=== PATIENT | female | born 1970 | race African-American/Black ===

== ENCOUNTER 2017-05-01 12:23 | Emergency (ER) | payer MEDICARE ==
--- OUTSIDE RECORDS SUMMARY | 2017-05-01 12:26 | XMS | Clinical Summary ---
:1970 Author Organization [facility] Address [address] [place] [address] Phone Care Team Providers Name Role Phone , Primary Care Provider Unavailable Allergies Not on File Current Medications Not on file Active Problems Not on file Social History Tobacco Use Types Packs/Day Years Used Date Never Assessed Sex Assigned at Date Recorded Not on file Last Filed Vital Signs Not on file Plan of Treatment Not on file Results Not on filefrom Last 3 Months
[2017-05-01 13:32] LABS: Bilirubin Negative (Negative); Blood, Urine Negative (Negative); Glucose, Urine (Dipstick) Negative (Negative); Ketone, Urine Negative (Negative); Nitrite Negative (Negative); Protein, Urine (Dipstick) Negative (Neg-Trace); Urobilinogen 0.2 mg/dL (0.2-1.0)
[2017-05-01 13:48] LABS: Amphetamine Not Detected (NotDetected); Methadone Not Detected (NotDetected); Methamphetamine Not Detected (NotDetected)
[2017-05-01] MEDS ORDERED: Lorazepam 1 MG TAB ONE (14:03)
[2017-05-01 14:22] LABS: #Basophils 0.1 thou/uL (0.0-0.2); #Eosinphils 0.2 thou/uL (0.0-0.7); #Lymphocytes 3.8 thou/uL (1.20-3.40); #Monocytes 0.9 thou/uL (0.11-0.59); #Neutrophils 5.6 thou/uL (1.40-6.50); %Basophils 1.1 % (0.0-1.0); %Eosinophils 1.6 % (0.0-10.0); %Lymphocytes 35.9 % (21.0-51.0); %Monocytes 8.1 % (0.0-10.0); Hematocrit 39.5 % (36.0-47.0); White Blood Cell (WBC) Count 10.5 thou/uL (4.8-10.8)
[2017-05-01 14:40] LABS: ALT (SGPT) 11 U/L (8-55); AST (SGOT) 14 U/L (5-34); Acetaminophen Less than 6.0 mcg/mL (10.0-30.0); Alkaline Phosphatase 92 U/L (40-150); Anion Gap 15 mmol/L (10-20); BUN (Urea Nitrogen) 10 mg/dL (7.0-18.7); Bilirubin, Total 0.3 mg/dL (0.2-1.2); CK (CPK) 113 U/L (29-168); Calc. Creatinine Clearance 0 mL/min (70-130); Calcium 9.4 mg/dL (7.8-10.44); Carbon Dioxide 23 mmol/L (22-29); Chloride 105 mmol/L (98-107); Estimated GFR-MDRD 73; Protein, Total 7.9 g/dL (6.0-8.3); Salicylate Less than 8.0 mg/dL (15.0-30.0)
[2017-05-01] MEDS ORDERED: traZODone HCl 150 MG TAB PO SCH (21:00)
== END 2017-05-02 08:40 ==
LOC: ERS 12:23
DX: R45.851 Suicidal ideations (principal); I10 Essential (primary) hypertension; J45.909 Unspecified asthma, uncomplicated; F41.9 Anxiety disorder, unspecified; F32.9 Major depressive disorder, single episode, unspecified; F20.9 Schizophrenia, unspecified; F17.210 Nicotine dependence, cigarettes, uncomplicated; Z79.891 Long term (current) use of opiate analgesic; Z79.899 Other long term (current) drug therapy
CPT/HCPCS: 36415; 80053; 80306; 80307; 81003; 81025; 82550; 84443; 85025; 93005

== ENCOUNTER 2017-09-28 03:49 | Emergency (ER) | payer MEDICARE, MEDICAID ==
[2017-09-28] MEDS ORDERED: Promethazine HCl 25 MG/ML VIAL ONE (04:55)
[2017-09-28 05:00] LABS: Bilirubin Negative (Negative); Blood, Urine Negative (Negative); Clarity CLOUDY (Clear); Glucose, Urine (Dipstick) Negative (Negative); Leukocyte Negative (Negative); Nitrite Negative (Negative); Protein, Urine (Dipstick) Negative (Neg-Trace); Specific Gravity, Urine 1.018 (1.002-1.036); Urobilinogen 0.2 mg/dL (0.2-1.0); pH, Urine 7.5 (5.0-9.0)
[2017-09-28] MEDS ORDERED: cloNIDine 0.1 MG TAB ONE ×2 (05:41→06:40)
[2017-09-28 05:49] LABS: Hemoglobin 12.4 g/dL (12.0-16.0); Mean Corpuscular HGB CONC 32.2 g/dL (32.0-36.0); Mean Corpuscular Hemoglobin 26.7 pg (27.0-31.0); Mean Platelet Volume 8.2 fL (7.4-10.4); Platelet Count 493 thou/uL (130-400); RBC Distribution Width 21.8 % (11.5-14.5); Red Blood Cell (RBC) Count 4.63 mill/uL (4.20-5.40); White Blood Cell (WBC) Count 13.7 thou/uL (4.8-10.8)
[2017-09-28 06:04] LABS: ALT (SGPT) 9 U/L (8-55); AST (SGOT) 13 U/L (5-34); Albumin 4.4 g/dL (3.5-5.0); Alkaline Phosphatase 85 U/L (40-150); Anion Gap 12 mmol/L (10-20); BUN (Urea Nitrogen) 10 mg/dL (7.0-18.7); Bilirubin, Total 0.3 mg/dL (0.2-1.2); CK (CPK) 184 U/L (29-168); Calc. Creatinine Clearance 0 mL/min (70-130); Calcium 9.6 mg/dL (7.8-10.44); Carbon Dioxide 24 mmol/L (22-29); Chloride 108 mmol/L (98-107); Estimated GFR-MDRD Greater than 90; Globulin 3.9 g/dL (2.4-3.5); Glucose 117 mg/dL (70-105); Lipase 12 U/L (8-78); Potassium 3.8 mmol/L (3.5-5.1); Protein, Total 8.3 g/dL (6.0-8.3); Sodium 140 mmol/L (136-145)
[2017-09-28 06:12] LABS: #Basophils 0.1 thou/uL (0.0-0.2); #Eosinphils 0.1 thou/uL (0.0-0.7); #Lymphocytes 3.1 thou/uL (1.20-3.40); #Monocytes 0.9 thou/uL (0.11-0.59); #Neutrophils 9.5 thou/uL (1.40-6.50); %Basophils 1.1 % (0.0-1.0); %Eosinophils 0.5 % (0.0-10.0); %Lymphocytes 22.6 % (21.0-51.0); %Monocytes 6.4 % (0.0-10.0); %Neutrophils 69.4 % (42.0-75.0); Anisocytosis SLIGHT = 6-15 cells (100X) (0-5/hpf); MDiff Complete? YES; Microcytosis SLIGHT = 6-15 cells (100X) (0-5/hpf); PLT Morphology Comment Appears Increased
[2017-09-28 06:23] LABS: Pregnancy Test - Urine (BHCG) Negative (Negative); Pregu Control Background? CLEAR/WHITE (CLR/WHITE); Pregu Control Bar Appear? YES (CONTROL BAR); Specific Gravity 1.018 (1.002-1.036)
[2017-09-28] MEDS ORDERED: Pantoprazole 40 MG VIAL ONE (06:40)
[2017-09-28] MEDS ORDERED: Amlodipine 5 MG TAB ONE (06:40)
[2017-09-28] MEDS ORDERED: ALPRAZolam 0.25 MG TAB ONE (06:54)
[2017-09-28] MEDS ORDERED: DULoxetine 60 MG CAP PO SCH (07:00)
[2017-09-28] MEDS ORDERED: QUEtiapine Fumarate ER 50 MG TAB PO SCH (09:00)
== END 2017-09-28 08:15 | disposition home or self-care (01) ==
LOC: ERS 03:49
DX: I10 Essential (primary) hypertension (principal); R11.2 Nausea with vomiting, unspecified; R10.13 Epigastric pain; F29 Unspecified psychosis not due to a substance or known physiological condition; J45.909 Unspecified asthma, uncomplicated; F41.9 Anxiety disorder, unspecified; F32.9 Major depressive disorder, single episode, unspecified; F20.9 Schizophrenia, unspecified; F43.10 Post-traumatic stress disorder, unspecified; F17.210 Nicotine dependence, cigarettes, uncomplicated; Z79.891 Long term (current) use of opiate analgesic; Z79.899 Other long term (current) drug therapy
CPT/HCPCS: 36415; 80053; 81003; 81025; 82550; 83605; 83690; 85025; 96365; 96375; C9113; J2550

== ENCOUNTER 2017-09-30 11:44 | Emergency (ER) | payer MEDICARE, MEDICAID ==
[2017-09-30 12:11] LABS: #Basophils 0.1 thou/uL (0.0-0.2); #Eosinphils 0.2 thou/uL (0.0-0.7); #Lymphocytes 3.3 thou/uL (1.20-3.40); #Monocytes 0.7 thou/uL (0.11-0.59); #Neutrophils 6.5 thou/uL (1.40-6.50); %Basophils 0.7 % (0.0-1.0); %Eosinophils 1.7 % (0.0-10.0); %Lymphocytes 30.5 % (21.0-51.0); %Monocytes 6.3 % (0.0-10.0); %Neutrophils 60.8 % (42.0-75.0); Hemoglobin 12.9 g/dL (12.0-16.0); Mean Corpuscular HGB CONC 32.9 g/dL (32.0-36.0); Mean Corpuscular Hemoglobin 27.3 pg (27.0-31.0); Mean Corpuscular Volume 82.9 fl (81.0-99.0); Platelet Count 498 thou/uL (130-400); RBC Distribution Width 20.9 % (11.5-14.5); Red Blood Cell (RBC) Count 4.72 mill/uL (4.20-5.40); White Blood Cell (WBC) Count 10.7 thou/uL (4.8-10.8)
[2017-09-30 12:28] LABS: INR-International Normal Ratio 0.9; PTT 30.1 SEC (22.9-36.1); Prothrombin Time 12.5 SEC (12.0-14.7)
--- NOTE | 2017-09-30 12:37 | RAD ---
PORTABLE CHEST: HISTORY: Mental status change. FINDINGS: The lungs are clear. The heart and mediastinum are unremarkable. IMPRESSION: No acute finding. POS: [facility]
[2017-09-30 12:38] LABS: CKMB 1.2 ng/mL (0-6.6); Troponin I 0.012 ng/mL (< 0.028)
--- NOTE | 2017-09-30 12:41 | CT ---
CT BRAIN PERFORMED WITHOUT CONTRAST ENHANCEMENT: HISTORY: Right-sided facial numbness and right-sided weakness. COMPARISON: 04/23/2016 FINDINGS: The ventricular and cisternal system is within normal limits. There are no signs of intracerebral he morrhage or extraaxial fluid collection. The mastoid air cells and visualized sinuses are clear. IMPRESSION: No acute intracranial abnormalities. POS: [facility]
[2017-09-30 13:11] LABS: Bilirubin Negative (Negative); Blood, Urine Negative (Negative); Clarity CLEAR (Clear); Glucose, Urine (Dipstick) Negative (Negative); Leukocyte Trace (Negative); Nitrite Negative (Negative); Protein, Urine (Dipstick) Negative (Neg-Trace); Specific Gravity, Urine 1.013 (1.002-1.036)
[2017-09-30 13:14] LABS: Bacteria/HPF None Seen HPF (None Seen); Hyaline Casts/LPF 0-3 HYALINE CAST LPF (0-3 Hyaline); Pathc Cast-AUWi Flag 0.81 (0-2.49); RBC/HPF None Seen HPF (0-3); WBC/HPF 0-3 HPF (0-3)
[2017-09-30 14:05] LABS: ALT (SGPT) 23 U/L (8-55); AST (SGOT) 18 U/L (5-34); Albumin 4.1 g/dL (3.5-5.0); Alkaline Phosphatase 90 U/L (40-150); Anion Gap 13 mmol/L (10-20); BUN (Urea Nitrogen) 11 mg/dL (7.0-18.7); Bilirubin, Total 0.2 mg/dL (0.2-1.2); CK (CPK) 191 U/L (29-168); Calc. Creatinine Clearance 0 mL/min (70-130); Calcium 9.2 mg/dL (7.8-10.44); Carbon Dioxide 22 mmol/L (22-29); Chloride 104 mmol/L (98-107); Estimated GFR-MDRD 87; Globulin 3.7 g/dL (2.4-3.5); Glucose 145 mg/dL (70-105); Potassium 3.7 mmol/L (3.5-5.1); Protein, Total 7.8 g/dL (6.0-8.3); Sodium 135 mmol/L (136-145)
[2017-09-30] MEDS ORDERED: cloNIDine 0.1 MG TAB ONE (14:18)
--- NOTE | 2017-10-05 15:33 | EKG ---
Test Reason : Blood Pressure : / mmHG Vent. Rate : 091 BPM Atrial Rate : 091 BPM P-R Int : 140 ms QRS Dur : 074 ms QT Int : 390 ms P-R-T Axes : 064 -10 022 degrees QTc Int : 479 ms Normal sinus rhythm Possible Left atrial enlargement Left ventricular hypertrophy Abnormal ECG Confirmed by LUI MEZA ([id number]), editor farm journal ESHA FAULKNER ([id number]) on 10/05/2017 3:32:51 PM Referred By: Confirmed By:LUI MEZA
== END 2017-09-30 14:25 | disposition home or self-care (01) ==
LOC: ERS 11:44
DX: I10 Essential (primary) hypertension (principal); R20.0 Anesthesia of skin; J45.909 Unspecified asthma, uncomplicated; F41.9 Anxiety disorder, unspecified; F43.10 Post-traumatic stress disorder, unspecified; F20.9 Schizophrenia, unspecified; F17.210 Nicotine dependence, cigarettes, uncomplicated; Z79.891 Long term (current) use of opiate analgesic; Z79.899 Other long term (current) drug therapy
CPT/HCPCS: 36415; 51701; 70450; 71045; 80053; 81003; 81015; 82550; 82553; 84484; 85025; 85610; 85730; 93005; 99406; A4353

== ENCOUNTER 2017-12-24 03:53 | Inpatient (IN) | payer MEDICARE, MEDICAID ==
[2017-12-24 04:30] LABS: #Basophils 0.1 thou/uL (0.0-0.2); #Eosinphils 0.3 thou/uL (0.0-0.7); #Lymphocytes 4.5 thou/uL (1.20-3.40); #Monocytes 0.9 thou/uL (0.11-0.59); #Neutrophils 6.7 thou/uL (1.40-6.50); %Basophils 0.9 % (0.0-1.0); %Eosinophils 2.3 % (0.0-10.0); %Lymphocytes 35.7 % (21.0-51.0); %Monocytes 7.5 % (0.0-10.0); %Neutrophils 53.6 % (42.0-75.0); Hemoglobin 12.1 g/dL (12.0-16.0); Mean Corpuscular HGB CONC 33.5 g/dL (32.0-36.0); Mean Corpuscular Hemoglobin 27.2 pg (27.0-31.0); Mean Corpuscular Volume 81.1 fl (81.0-99.0); Mean Platelet Volume 7.2 fL (7.4-10.4); Platelet Count 476 thou/uL (130-400); RBC Distribution Width 20.7 % (11.5-14.5); Red Blood Cell (RBC) Count 4.44 mill/uL (4.20-5.40); White Blood Cell (WBC) Count 12.5 thou/uL (4.8-10.8)
[2017-12-24 04:43] LABS: ALT (SGPT) 7 U/L (8-55); AST (SGOT) 10 U/L (5-34); Albumin 3.9 g/dL (3.5-5.0); Alkaline Phosphatase 87 U/L (40-150); Anion Gap 11 mmol/L (10-20); BUN (Urea Nitrogen) 10 mg/dL (7.0-18.7); Bilirubin, Total 0.2 mg/dL (0.2-1.2); Calc. Creatinine Clearance 0 mL/min (70-130); Carbon Dioxide 23 mmol/L (22-29); Chloride 108 mmol/L (98-107); Estimated GFR-MDRD 66; Globulin 3.5 g/dL (2.4-3.5); Glucose 107 mg/dL (70-105); Potassium 3.8 mmol/L (3.5-5.1); Protein, Total 7.4 g/dL (6.0-8.3); Sodium 138 mmol/L (136-145)
[2017-12-24] MEDS ORDERED: Ketorolac Tromethamine 30 MG/ML VIAL ONE ×2 (05:42→10:27)
[2017-12-24] MEDS ORDERED: Dexamethasone 10 MG/ML VIAL ONE ×2 (05:42→08:40)
[2017-12-24] MEDS ORDERED: Ampicillin/Sulbactam 3 GM in Sodium Chloride 0.9% 100 ML IVPB SCH (08:00)
--- NOTE | 2017-12-24 08:57 | RAD ---
PORTABLE UPRIGHT FRONTAL CHEST: Date: 12/24/17 COMPARISON: 09/30/17. HISTORY: Difficulty breathing, throat swelling, hematemesis. FINDINGS: No pneumothorax, pleural fluid, focal consolidation, or alveolar edema. Heart and mediastinal contour s appear within normal limits. IMPRESSION: No acute findings. POS: [facility]
[2017-12-24] MEDS ORDERED: Ondansetron HCl/PF 4 MG/2 ML Vial IVP PRN (11:35)
[2017-12-24] MEDS ORDERED: Ondansetron ODT 4 MG TAB SL PRN (11:35)
[2017-12-24] MEDS ORDERED: Acetaminophen 325 MG TAB PO PRN (11:35)
[2017-12-24 11:40] VITALS: BMI 32.2
--- NOTE | 2017-12-24 12:18 | CT ---
PRELIMINARY REPORT/[facility]/EMERGENTY AFTER-HOURS PROCEDURE CT Neck With Intravenous Contrast EXAM DATE/TIME: Exam ordered 12/24/2017 5:26 AM CLINICAL HISTORY: 47 years old, female; Pain and signs and symptoms; Other: Swelling; Painful swallowing and throat nhung n; Patient HX: 47 yo f presents to ed with sore and swollen throat. Pt reports swelling started early this morning. Pt reports associated difficulty breathing, throat pain, and abdominal pain. Pt report s she has been coughing up blood and a newton mucus for a week. Pt denies fever, dental pain, blood in st ool. TECHNIQUE: Axial computed tomography images of the neck with intravenous contrast. Coronal and sagittal reformatted images were created and reviewed. COMPARISON: No relevant prior studies available. FINDINGS: Oropharynx: See below. Hypopharynx: Normal. Larynx: Normal. Normal epiglottis. Trachea: Normal. Retropharyngeal space: Normal. Submandibular/parotid glands: Normal. Glands are normal in size. Thyroid: The thyroid gland is normal. Bones/joints: No acute fracture. Soft tissues: There is phlegmonous stranding involving the pharyngeal tonsils which extends inferiorl y on the RIGHT without well-defined rim-enhancing abscess. The finding is suggestive of tonsillitis. Vasculature: No acute findings. Lymph nodes: Mild reactive cervical lymphadenopathy is noted. Lung apices: There is dentigerous disease with periapical lucencies/dentigerous cysts involving each LEFT upper premolar tooth. IMPRESSION: Findings suggestive of tonsillitis without discrete abscess at this time. May consider direct inspect ion after a course of treatment if clinically warranted. Thank you for allowing us to participate in the care of your patient. Dictated and Authenticated by: Simeon Hoffmann MD 12/24/2017 6:43 AM Central Time ([place] & [place]) FINAL REPORT NECK SOFT TISSUES: This report is in disagreement with the preliminary report by [facility]. There is marked hypertrophy of th e adenoid tonsils, palatine tonsils, and the remainder of Waldeyer's ring. There is hypoattenuation involving the right parapharyngeal space as well as the soft tissues deep to the right palatine tonsi ls. Phlegmonous change with an early/developing peritonsillar/soft tissue abscess may be present. A dditional edematous change is noted involving the right floor of the mouth. There is mild edema irasema cent to the right submandibular gland. No evidence of a sialolith. No obvious masses in the neural cavity. Midline fatty raphae of the tongue is preserved. Epiglottis is normal-caliber. There is prevertebral soft tissue swelling with prevertebral fluid at C!, C2, and C3. Varying degrees of central canal stenosis and foraminal narrowing are basically unchanged. Upper med iastinum and lung apices are unremarkable. IMPRESSION: Extensive inflammatory/infectious changes involving the lymphoid tissues of the head and neck as desc ribed above. There is evidence of lymphoid hyperplasia along Waldeyer's ring. There is fluid attenu ation along the right parapharyngeal space as well as adjacent to the right submandibular gland. The re is also abnormal fluid in the floor of the mouth. There is also evidence of prevertebral fluid. An aggressive infectious/inflammatory process is favored. Results of the study were discussed with Adrian Maya 12/24/17 at 7:49 a.m. CODE CR POS: [facility]
--- NOTE | 2017-12-24 12:35 | CON ---
DATE OF CONSULTATION: 12/24/2017 The patient is a 47-year-old female who came by the ER from home, stated that she was having hemoptys is for 24 hours, sore throat, coughing, shortness of breath. In the ER they felt her airway was comp romised. She got Unasyn, dexamethasone 10 mg and some pain medicine. She is now in the IMCU, reason for consultation. She is a half pack a day smoker, has bronchitis and asthma. No COPD symptoms. She walks on a regular day about a mile a day. She is mentally challeng ed and apparently has disability from that. She was seen by ENT physician prior to my visit. Please review his extensive notes. Presently she remains relatively asymptomatic. She says she wants to eat. PAST MEDICAL HISTORY: Pertinent for peptic ulcer disease, history of bipolar, schizophrenia, chronic pain, substance abuse, tobacco abuse, asthma, hypertension. PAST SURGICAL HISTORY: Tubal ligation, endoscopy. MEDICATIONS: From home includes Seroquel 300 twice a day, trazodone 150 at bedtime, hydrochlorothiaz radha 25, Cymbalta 60, amlodipine 10 mg. ALLERGIES: BENTYL. SOCIAL/FAMILY HISTORY: As noted. Alcohol, none. Tobacco, half pack. Disabled. PHYSICAL EXAMINATION: GENERAL: In no distress. I hear no stridor or wheezing. VITAL SIGNS: Temperature 97. Sats 100%, blood pressure 140/84. CHEST: Chest reveals decreased breath sounds, no wheezing. CARDIAC: Normal S1, S2, no gallops. ABDOMEN: Soft, no masses. X-ray was normal. Soft tissue of the neck showed some narrowing of the upper airways. White count 12,000, H&H is unremarkable. Electrolytes are normal. IMPRESSION: 1. Pharyngitis. 2. Tonsillitis. 3. Hemoptysis. 4. Tobacco abuse. 5. Chronic obstructive pulmonary disease. 6. Bipolar disorder. 7. Hypertension. PLAN: Await input from ENT. Pulmonary jamil, we will follow while she is in the IM. Advised her to refrain from smoking. Consultation note, 70 minutes of which 50% spent in direct patient care.
[2017-12-24] MEDS ORDERED: ISOVUE-370 76%-LOCM 1 ML ONE (13:55)
--- NOTE | 2017-12-24 16:36 | CON ---
DATE OF CONSULTATION: 12/24/2017 INPATIENT CONSULT The patient seen in consultation by Dr. Daniel for evaluation of oropharyngeal swelling/acute ton sillitis. BRIEF HISTORY: This is a 47-year-old female who has had one-day history of sore throat. She has a v trip loud snore and also is a smoker. She reports waking up this morning with swelling in the back of her throat, painful to swallow. As the day progressed, she had difficulty swallowing and tolerating secretions. She presented to the emergency room and had tonsils fairly touching. Also, she has a C T scan which shows a large follicular tonsillitis. No evidence of abscess or phlegmon. There is sma ll associated lymphadenopathy, otherwise the laryngeal structures are all within normal limits. PAST MEDICAL HISTORY: Hypertension, treated. PAST SURGICAL HISTORY: None. ALLERGIES: FENTANYL. MEDICATIONS: None. REVIEW OF SYSTEMS: GENERAL: No fevers, chills, weight loss. HEENT: No history of hemoptysis. No evidence of blood in her spit that happened this morning. CARDIOVASCULAR: No chest pain, orthopnea, dyspnea on exertion. HEME: No history of bleeding disorders. PHYSICAL EXAMINATION: Patient is resting comfortably in bed. She reports her voice is much improved after steroids and antibiotics she received in the emergency room this morning. Her swallowing has returned. She is able to tolerate secretions and is actually asking for liquid diet now. Voice is f airly clear. cryptic tonsillitis and folliculitis in tonsils, 3+ in size. Oropharyngeal airwa y is patent. Uvula and soft palate is elongated. No evidence of edema. NECK: No lymphadenopathy, no masses. Laryngeal structures were within normal limits. EARS: TMs intact. Middle ears well aer ated. ASSESSMENT AND PLAN: Acute follicular tonsillitis causing mild oropharyngeal airway distress, now re solved. Recommended to continue IV antibiotics overnight and likely discharge on oral antibiotics to [facility]. They can follow up in our clinic next week.
[2017-12-24] MEDS: Piperacillin/Tazobactam 3.375 GM in Sodium Chloride 0.9% 100 ML IVPB SCH ×2 (17:41→23:40)
--- NOTE | 2017-12-24 17:53 | HP ---
DATE OF ADMISSION: 12/24/2017 CHIEF COMPLAINT: Sore throat and difficulty breathing. HISTORY OF PRESENT ILLNESS: Ms. Camarillo is a 47-year-old female with past medical history of bipolar disorder, hypertension, COPD versus asthma who came because of sudden onset of swelling throat, difficulty swallowing as well as difficulty breathing. States the swelling started early this morning, had a fever as well, had hemoptysis as well. She states she has been coughing up blood and green mucus for a week. The patient decided to come to the hospital because of the severe pain as well as unable to breathe, choking sensation. In the ER, the patient was evaluated and found to have acute tonsillitis with possible marked oropharyngeal edema. The patient received Decadron injection twice and Unasyn because the ER physician felt the patient's airway has been compromised, but the patient is feeling better now. She is able to swallow somewhat and clearly she wanted to eat. She is admitted to [facility] to monitor the airway. PAST MEDICAL HISTORY: 1. Bipolar disorder. 2. Hypertension. 3. Chronic pain. 4. History of drug abuse. 5. Tobacco abuse. 6. History of asthma versus chronic obstructive pulmonary disease. PAST SURGICAL HISTORY: Status post tubal ligation, status post endoscopy. ALLERGIES: BENTYL. CURRENT MEDICATIONS: The patient is on trazodone 150 daily, Seroquel 300 mg b.i.d., Protonix 40 mg daily, hydrochlorothiazide 25 mg daily, Cymbalta 60 mg daily and amlodipine 10 mg daily. FAMILY HISTORY: Positive for diabetes and hypertension. SOCIAL HISTORY: The patient lives alone. Former drug user. She used to abuse cocaine and marijuana before. The patient states she is clean for 4 months. No history of alcohol intake. She smokes cigarettes half pack a day and has been smoking for 20 years. REVIEW OF SYSTEMS: Cardiovascular: No chest pain. Has shortness of breath. Respiratory: Has cough and fever. Gastrointestinal: No nausea or vomiting. Genitourinary: No recent dysuria or hematuria. Central Nervous System: No headache, no dizziness. PHYSICAL EXAMINATION: GENERAL: The patient is alert, awake, oriented x3. VITAL SIGNS: Temperature 98, pulse 93, respirations 20, blood pressure 120/100. HEENT: Normocephalic, atraumatic. Pupils equal and reactive to light. Pharynx is enlarged. Tonsils present with some erythema and edema. NECK: Supple. No JVD. LUNGS: Bilateral air entry present, no rales, no rhonchi. CARDIAC: S1, S2 regular. ABDOMEN: Soft, no distention, no tenderness. Normal bowel sounds. RECTAL: Deferred. CENTRAL NERVOUS SYSTEM: No focal deficit. LABORATORY AND X-RAY FINDINGS: CBC shows WBC 12.5, hemoglobin 12, hematocrit 36 , platelets 476,000. Metabolic panel, sodium 138, potassium 3.8, chloride 108, CO2 of 23, urea nitrogen 10, creatinine 1, glucose 107. CT scan of the neck was reported as tonsillitis without discrete abscess. The later report says there is extensive inflammatory infectious changes involving the lymphoid tissues of the head and neck. Chest x-ray negative. ASSESSMENT: 1. Acute tonsillitis with oropharyngeal edema 2. Extensive infectious process involving the lymphoid tissues of the head and neck, questionable peritonsillar abscess. 3. Bipolar disorder. 4. Hypertension. 5. Chronic obstructive pulmonary disease versus asthma. PLAN: 1. Vital signs q.4 hours. 2. Activity: As tolerated. 3. Allergies: BENTYL. 4. Hep-Lock. 5. Zosyn 3.375 grams IV piggyback q.6 hours. 6. Toradol 30 mg IVP q.6. hours p.r.n. 7. Continue your home medication. 8. ENT consult. [facility]
[2017-12-24] MEDS: Lisinopril 20 MG TAB PO SCH (20:55)
[2017-12-24] MEDS: cloNIDine 0.3 MG TAB PO SCH (20:55)
[2017-12-24] MEDS ORDERED: traZODone HCl 150 MG TAB PO SCH (21:00)
[2017-12-24] MEDS: traMADol HCl 50 MG TAB PO PRN (21:02)
[2017-12-25] MEDS: Piperacillin/Tazobactam 3.375 GM in Sodium Chloride 0.9% 100 ML IVPB SCH ×2 (06:00→12:10)
[2017-12-25] MEDS: traMADol HCl 50 MG TAB PO PRN (08:36)
[2017-12-25] MEDS: Lisinopril 20 MG TAB PO SCH (08:36)
[2017-12-25] MEDS: cloNIDine 0.3 MG TAB PO SCH (08:36)
[2017-12-25] MEDS ORDERED: DULoxetine 60 MG CAP PO SCH (09:00)
[2017-12-25 11:13] VITALS: BP 159/93; TEMP 98.1
--- NOTE | 2017-12-25 12:07 | PRG ---
DATE OF SERVICE: 12/25/2017 SUBJECTIVE: Jaent Dojoya this morning, awake, responsive, no distress, no pain, no sore throat p ain, no hoarseness. PHYSICAL EXAMINATION: VITAL SIGNS: Temperature 97, blood pressure 136/85, sats 100% room air, respiratory rate 18. CHEST: No wheezing, no crackles. CARDIAC: Normal S1, S2. ABDOMEN: Soft, no masses. LABORATORY DATA: All cultures negative. IMPRESSION: Tonsillitis, pharyngitis, hemoptysis, pretty much resolved. PLAN: Continue antibiotics as per ENT. Disposition with primary care physician. Pulmonary will follow at a distance.
--- NOTE | 2017-12-26 13:27 | DIS ---
DATE OF ADMISSION: 12/24/2017 DATE OF DISCHARGE 12/25/2017 ADMITTING DIAGNOSES: 1. Acute tonsillitis with oropharyngeal edema. 2. Bipolar disorder. 3. Hypertension. 4. Chronic obstructive pulmonary disease. FINAL DIAGNOSES: 1. Acute follicular tonsillitis with mild oropharyngeal airway distress due to edema, resolved. 2. Bipolar disorder. 3. Hypertension. 4. Chronic obstructive pulmonary disease. BRIEF SUMMARY OF HOSPITAL COURSE: Ms. Camarillo is a 47-year-old female admitted because of severe sore throat, dysphagia. The patient developed acute onset of swelling in the throat and unable to swallow, unable to breathe well, as well as some choking sensation. The patient was found to have acute tonsillitis with possible oropharyngeal edema. She received IV antibiotics as well as steroids in the ER. The patient was seen by ENT specialist, Dr. Solis, felt patient has acute follicular tonsillitis with oropharyngeal edema with respiratory distress which is mild, but with antibiotics as well as steroids that edema resolved and the patient is able to swallow and she is able to tolerate diet. She did not have any more choking feeling or shortness of breath, no fever. In view of improvement, the patient was discharged. Vital signs stable. Lungs clear to auscultation. Abdomen, normal bowel sounds. DISCHARGE MEDICATIONS: Augmentin 875 b.i.d. for 10 days, trazodone 300 mg at bedtime, Seroquel 800 mg at bedtime, Protonix 40 mg daily, lisinopril 20 b.i.d. , clonidine 0.3 b.i.d., Cymbalta 15 daily, tramadol p.r.n. FOLLOWUP: The patient will come for followup in 2 weeks. [facility]
== END 2017-12-25 13:30 | disposition home or self-care (01) | DRG 153 ==
LOC: ERS 03:53 → ERHOLD 08:41 → IMCU/EMU 11:28
PROVIDERS: ADMIT Internal Medicine; ATTEND Internal Medicine
DX: J03.90 Acute tonsillitis, unspecified (principal); F31.9 Bipolar disorder, unspecified; I10 Essential (primary) hypertension; J44.9 Chronic obstructive pulmonary disease, unspecified; G89.29 Other chronic pain; J02.9 Acute pharyngitis, unspecified; F17.210 Nicotine dependence, cigarettes, uncomplicated; Z88.8 Allergy status to other drugs, medicaments and biological substances; Z79.899 Other long term (current) drug therapy
CPT/HCPCS: 36415; 70491; 71045; 80053; 83605; 85025; 85652; 86140; 87040; 93005; 94640; 96365; 96366; 96375; 96376; J0295; J1100; J1885; J2543; J7050; J7620

== ENCOUNTER 2018-01-01 13:04 | Emergency (ER) | payer MEDICARE, MEDICAID ==
[2018-01-01 13:54] LABS: Bilirubin Negative (Negative); Blood, Urine Negative (Negative); Clarity CLOUDY (Clear); Glucose, Urine (Dipstick) Negative (Negative); Leukocyte Small (Negative); Nitrite Negative (Negative); Protein, Urine (Dipstick) Negative (Neg-Trace); Specific Gravity, Urine 1.021 (1.002-1.036); Urobilinogen 0.2 mg/dL (0.2-1.0); pH, Urine 5.5 (5.0-9.0)
[2018-01-01 13:55] LABS: Bacteria/HPF 1+ HPF (None Seen); Hyaline Casts/LPF 0-3 HYALINE CAST LPF (0-3 Hyaline); Pathc Cast-AUWi Flag 0.58 (0-2.49); Squamous Epithelial 21-50 HPF (0-3)
[2018-01-01 13:57] LABS: Pregnancy Test - Urine (BHCG) Negative (Negative); Pregu Control Background? CLEAR/WHITE (CLR/WHITE); Pregu Control Bar Appear? YES (CONTROL BAR); Specific Gravity 1.021 (1.002-1.036)
[2018-01-01 14:03] LABS: #Basophils 0.1 thou/uL (0.0-0.2); #Eosinphils 0.2 thou/uL (0.0-0.7); #Lymphocytes 2.9 thou/uL (1.20-3.40); #Monocytes 0.8 thou/uL (0.11-0.59); #Neutrophils 4.2 thou/uL (1.40-6.50); %Basophils 0.8 % (0.0-1.0); %Eosinophils 2.3 % (0.0-10.0); %Lymphocytes 35.4 % (21.0-51.0); %Monocytes 9.3 % (0.0-10.0); %Neutrophils 52.1 % (42.0-75.0); Hemoglobin 12.3 g/dL (12.0-16.0); Mean Corpuscular HGB CONC 33.9 g/dL (32.0-36.0); Mean Corpuscular Hemoglobin 27.4 pg (27.0-31.0); Mean Corpuscular Volume 80.9 fl (81.0-99.0); Mean Platelet Volume 7.6 fL (7.4-10.4); Platelet Count 397 thou/uL (130-400); RBC Distribution Width 20.4 % (11.5-14.5); Red Blood Cell (RBC) Count 4.49 mill/uL (4.20-5.40)
[2018-01-01 14:05] LABS: Amphetamine Not Detected (NotDetected); Barbiturates Screen Not Detected (NotDetected); Benzodiazepine Screen Not Detected (NotDetected); Cocaine Metabolite Screen Detected (NotDetected); Medtox Control Line Valid? VALID (VALID); Medtox Reader # READER 1; Methadone Not Detected (NotDetected); Methamphetamine Not Detected (NotDetected); Opiate Screen Not Detected (NotDetected); Oxycodone Screen Not Detected (NotDetected); Phencyclidine (PCP) Not Detected (NotDetected); THC/Cannabinoid Screen Detected (NotDetected); Tricyclic Screen Detected (NotDetected)
[2018-01-01 14:08] LABS: RBC/HPF 0-3 HPF (0-3)
[2018-01-01 14:09] LABS: Trichomonas/HPF Rare HPF (None Seen)
[2018-01-01] MEDS ORDERED: Acetaminophen 500 MG TAB ONE (14:21)
[2018-01-01 14:30] LABS: ALT (SGPT) 10 U/L (8-55); AST (SGOT) 9 U/L (5-34); Acetaminophen Less than 6.0 mcg/mL (10.0-30.0); Alcohol Less than 10 mg/dL (Less than 10); Alkaline Phosphatase 87 U/L (40-150); Anion Gap 8 mmol/L (10-20); BUN (Urea Nitrogen) 10 mg/dL (7.0-18.7); Bilirubin, Total 0.3 mg/dL (0.2-1.2); Calc. Creatinine Clearance 0 mL/min (70-130); Calcium 9.4 mg/dL (7.8-10.44); Carbon Dioxide 25 mmol/L (22-29); Chloride 108 mmol/L (98-107); Estimated GFR-MDRD 90; Globulin 3.5 g/dL (2.4-3.5); Glucose 98 mg/dL (70-105); Protein, Total 7.5 g/dL (6.0-8.3); Salicylate Less than 8.0 mg/dL (15.0-30.0); Sodium 137 mmol/L (136-145)
[2018-01-01 14:35] LABS: Anisocytosis SLIGHT = 6-15 cells (100X) (0-5/hpf); MDiff Complete? YES; PLT Morphology Comment Appears Adequate; Polychromasia SLIGHT = 2-3 cells (100X) (0-2/hpf); Target Cells SLIGHT = 2-5 cells (100X) (0-1/hpf)
[2018-01-01] MEDS ORDERED: Ketorolac Tromethamine 60 MG/2 ML VIAL ONE (19:14)
[2018-01-01] MEDS ORDERED: Lorazepam 1 MG TAB ONE (19:15)
[2018-01-01] MEDS ORDERED: Nitrofurantoin Monohyd/M-Cryst 100 MG CAP PO SCH (19:30)
== END 2018-01-01 22:23 ==
LOC: ERS 13:04
DX: R45.851 Suicidal ideations (principal); N30.00 Acute cystitis without hematuria; F19.10 Other psychoactive substance abuse, uncomplicated; I10 Essential (primary) hypertension; J45.909 Unspecified asthma, uncomplicated; F41.9 Anxiety disorder, unspecified; F32.9 Major depressive disorder, single episode, unspecified; F17.210 Nicotine dependence, cigarettes, uncomplicated; Z79.899 Other long term (current) drug therapy
CPT/HCPCS: 36415; 80053; 80306; 80307; 81003; 81015; 81025; 82550; 84443; 85025; 87077; 87086; 96372; J1885

== ENCOUNTER 2018-05-01 08:41 | Emergency (ER) | payer MEDICARE, MEDICAID | END 2018-05-01 10:42 | disposition home or self-care (01) | LOC: ERS 08:41 | DX: L02.413 Cutaneous abscess of right upper limb (principal); F41.9 Anxiety disorder, unspecified; F32.9 Major depressive disorder, single episode, unspecified; I10 Essential (primary) hypertension; F20.9 Schizophrenia, unspecified; F43.10 Post-traumatic stress disorder, unspecified; F17.210 Nicotine dependence, cigarettes, uncomplicated; J45.909 Unspecified asthma, uncomplicated; Z79.891 Long term (current) use of opiate analgesic; Z79.899 Other long term (current) drug therapy | CPT/HCPCS: 99282 ==

== ENCOUNTER 2018-05-22 09:20 | Emergency (ER) | payer MEDICARE, MEDICAID | END 2018-05-22 10:15 | disposition home or self-care (01) | LOC: ERS 09:20 | DX: Z48.817 Encounter for surgical aftercare following surgery on the skin and subcutaneous tissue (principal); F41.9 Anxiety disorder, unspecified; I10 Essential (primary) hypertension; F32.9 Major depressive disorder, single episode, unspecified; F20.9 Schizophrenia, unspecified; F43.10 Post-traumatic stress disorder, unspecified; F17.210 Nicotine dependence, cigarettes, uncomplicated; J45.909 Unspecified asthma, uncomplicated; Z79.899 Other long term (current) drug therapy | CPT/HCPCS: 99283 ==

== ENCOUNTER 2018-06-25 13:39 | Emergency (ER) | payer MEDICARE, MEDICAID ==
[2018-06-25] MEDS ORDERED: cloNIDine 0.1 MG TAB ONE (14:07)
[2018-06-25] MEDS ORDERED: Lidocaine Viscous Sol 2% 15 ml UD Cup ONE (14:07)
[2018-06-25] MEDS ORDERED: Famotidine/PF 20 mg/2ml Vial ONE (14:07)
[2018-06-25] MEDS ORDERED: Mag-Al 1200 mg/1200 mg/30 ML UDCUP ONE (14:07)
[2018-06-25 14:25] LABS: Hemoglobin 12.7 g/dL (12.0-16.0); Mean Corpuscular HGB CONC 32.4 g/dL (32.0-36.0); Mean Corpuscular Hemoglobin 26.9 pg (27.0-31.0); Mean Platelet Volume 7.5 fL (7.4-10.4); Platelet Count 504 thou/uL (130-400); RBC Distribution Width 20.2 % (11.5-14.5); Red Blood Cell (RBC) Count 4.74 mill/uL (4.20-5.40); White Blood Cell (WBC) Count 7.3 thou/uL (4.8-10.8)
[2018-06-25] MEDS ORDERED: Morphine 4 MG/ML VIAL ONE ×3 (14:35→17:22)
[2018-06-25] MEDS ORDERED: Promethazine HCl 25 MG/ML VIAL ONE (14:35)
[2018-06-25] MEDS ORDERED: hydrALAZINE 20 MG/ML VIAL ONE (14:35)
[2018-06-25 14:43] LABS: Anisocytosis SLIGHT = 6-15 cells (100X) (0-5/hpf); Band 1 % (5-11); Eosinophils 1 % (0-10); Hypochromia SLIGHT = 6-15 cells (100X) (0-5/hpf); Lymphocytes 10 % (21-51); MDiff Complete? YES; Monocytes 3 % (0-10); Neutrophil 85 % (42-75); PLT Morphology Comment Appears Increased; Target Cells SLIGHT = 2-5 cells (100X) (0-1/hpf)
[2018-06-25 14:46] LABS: ALT (SGPT) 11 U/L (8-55); AST (SGOT) 13 U/L (5-34); Acetaminophen Less than 6.0 mcg/mL (10.0-30.0); Albumin 4.3 g/dL (3.5-5.0); Alcohol Less than 10 mg/dL (Less than 10); Alkaline Phosphatase 79 U/L (40-150); Anion Gap 16 mmol/L (10-20); BUN (Urea Nitrogen) 7 mg/dL (7.0-18.7); Bilirubin, Total 0.3 mg/dL (0.2-1.2); CK (CPK) 153 U/L (29-168); Calc. Creatinine Clearance 0 mL/min (70-130); Calcium 9.6 mg/dL (7.8-10.44); Carbon Dioxide 22 mmol/L (22-29); Chloride 105 mmol/L (98-107); Estimated GFR-MDRD 81; Globulin 4.2 g/dL (2.4-3.5); Glucose 134 mg/dL (70-105); Potassium 3.9 mmol/L (3.5-5.1); Protein, Total 8.5 g/dL (6.0-8.3); Salicylate Less than 8.0 mg/dL (15.0-30.0); Sodium 139 mmol/L (136-145)
[2018-06-25 14:48] LABS: CKMB 1.1 ng/mL (0-6.6); Troponin I Less than 0.010 ng/mL (< 0.028)
--- NOTE | 2018-06-25 14:48 | RAD ---
FRONTAL VIEW CHEST: COMPARISON: 12/24/2017. INDICATION: Chest pain. FINDINGS: There is a subtle patchy density at the left lower lung zone. The right lung is clear. Cardiac silh ouette is normal in size for the portable technique. Chest is otherwise similar. IMPRESSION: Patchy left basilar density may relate to pneumonia in the correct clinical context. Recommend clini mercy management as well as followup 2-view to confirm resolution. POS: [facility]
[2018-06-25] MEDS ORDERED: Metoclopramide HCl 10 MG/2 ML VIAL ONE (16:08)
[2018-06-25 16:11] LABS: Bilirubin Negative (Negative); Blood, Urine Negative (Negative); Clarity CLEAR (Clear); Glucose, Urine (Dipstick) Negative (Negative); Leukocyte Negative (Negative); Nitrite Negative (Negative); Protein, Urine (Dipstick) Negative (Neg-Trace); Urobilinogen 0.2 mg/dL (0.2-1.0); pH, Urine 7.5 (5.0-9.0)
[2018-06-25 16:15] LABS: Specific Gravity, Urine 1.001 (1.002-1.036)
[2018-06-25 16:51] LABS: Pregnancy Test - Urine (BHCG) Negative (Negative); Pregu Control Background? CLEAR/WHITE (CLR/WHITE); Pregu Control Bar Appear? YES (CONTROL BAR); Specific Gravity 1.001 (1.002-1.036)
[2018-06-25 17:01] LABS: Amphetamine Not Detected (NotDetected); Barbiturates Screen Not Detected (NotDetected); Benzodiazepine Screen Not Detected (NotDetected); Cocaine Metabolite Screen Not Detected (NotDetected); Medtox Control Line Valid? VALID (VALID); Medtox Reader # READER 1; Methadone Not Detected (NotDetected); Methamphetamine Not Detected (NotDetected); Opiate Screen Not Detected (NotDetected); Oxycodone Screen Not Detected (NotDetected); Phencyclidine (PCP) Not Detected (NotDetected); THC/Cannabinoid Screen Not Detected (NotDetected); Tricyclic Screen Not Detected (NotDetected)
[2018-06-25] MEDS ORDERED: diphenhydrAMINE 50 MG/ML VIAL ONE (17:22)
--- NOTE | 2018-06-25 17:43 | CT ---
CT CHEST WITH IV CONTRAST CT ABDOMEN OR PELVIS WITH IV CONTRAST 06/25/18 Multiple axial tomograms obtained through the chest, abdomen and pelvis with IV enhancement. IV contr ast sequence is delayed to a delayed venous phase due to IV difficulties. INDICATION: Abdominal pain. Chest pain with nausea and vomiting. CT CHEST: The lung malik are clear. There is no evidence of infiltrate or effusion. No evidence of vascular co ngestion or edema. The mediastinum is unremarkable. IMPRESSION: No acute chest abnormality. CT ABDOMEN AND PELVIS: Liver, spleen and pancreas unremarkable. The gallbladder is mildly distended. No evidence of perichol ecystic edema. Adrenal glands and kidneys unremarkable. No hydronephrosis. Small bowel loops appear normal. The appendix appears normal. Colon unremarkable. Aorta normal calibe r. No adenopathy. IMPRESSION: 1. Gallbladder is mildly distended which is nonspecific. Gallstones may not be apparent by CT an d recommend clinical correlation. 2. CT abdomen and pelvis otherwise unremarkable with no evidence of acute process. POS: [facility]
--- NOTE | 2018-06-25 18:34 | ULT ---
GALLBLADDER ULTRASOUND: 06/25/18 HISTORY: Abdominal pain. The gallbladder has a normal sonographic appearance. No evidence of gallstones identified. The common duct is normal caliber. The liver, is unremarkable. The right kidney is imaged and is unremarkable. The pancreas is mostly obscured. IMPRESSION: Unremarkable gallbladder ultrasound. POS: [facility]
== END 2018-06-25 19:29 | disposition home or self-care (01) ==
LOC: ERS 13:39
DX: R10.13 Epigastric pain (principal); J45.909 Unspecified asthma, uncomplicated; F41.9 Anxiety disorder, unspecified; F32.9 Major depressive disorder, single episode, unspecified; F20.9 Schizophrenia, unspecified; F43.10 Post-traumatic stress disorder, unspecified; F17.210 Nicotine dependence, cigarettes, uncomplicated; Z79.899 Other long term (current) drug therapy
CPT/HCPCS: 36415; 71045; 71260; 74177; 76705; 80053; 80306; 80307; 81003; 81025; 82553; 83690; 84443; 84484; 85025; 93005; 94760; 96365; 96367; 96375; 96376; J0360; J1200; J2270; J2550; J2765; S0028

== ENCOUNTER 2018-06-26 22:10 | Emergency (ER) | payer MEDICARE, MEDICAID | END 2018-06-26 22:31 | disposition home or self-care (01) | LOC: ERS 22:10 | DX: Z00.00 Encounter for general adult medical examination without abnormal findings (principal); F17.210 Nicotine dependence, cigarettes, uncomplicated; I10 Essential (primary) hypertension; F41.9 Anxiety disorder, unspecified; F32.9 Major depressive disorder, single episode, unspecified; Z79.899 Other long term (current) drug therapy | CPT/HCPCS: 99284 ==

== ENCOUNTER 2018-08-24 16:35 | Emergency (ER) | payer MEDICARE, MEDICAID ==
[2018-08-24 17:54] LABS: Bilirubin Negative (Negative); Blood, Urine Large (Negative); Clarity CLOUDY (Clear); Glucose, Urine (Dipstick) Negative (Negative); Leukocyte Small (Negative); Nitrite Negative (Negative); Protein, Urine (Dipstick) 30 mg/dL (Neg-Trace); Specific Gravity, Urine 1.014 (1.002-1.036); pH, Urine 6.5 (5.0-9.0)
[2018-08-24 17:56] LABS: Pregnancy Test - Urine (BHCG) Negative (Negative); Pregu Control Background? CLEAR/WHITE (CLR/WHITE); Pregu Control Bar Appear? YES (CONTROL BAR); Specific Gravity 1.014 (1.002-1.036)
[2018-08-24 17:57] LABS: Bacteria/HPF None Seen HPF (None Seen); Hyaline Casts/LPF 0-3 HYALINE CAST LPF (0-3 Hyaline); Pathc Cast-AUWi Flag 0.22 (0-2.49); Yeast-AUWi Flag 61.2 (0-25.0)
[2018-08-24 18:05] LABS: RBC/HPF GREATER THAN 50-TNTC HPF (0-3)
[2018-08-24 18:06] LABS: Renal Epithelial None Seen HPF (0-3); Transitional Epithelial NONE SEEN HPF (0-3); Yeast-All Forms None Seen HPF (None Seen)
[2018-08-24] MEDS ORDERED: cloNIDine 0.1 MG TAB ONE (18:13)
[2018-08-24] MEDS ORDERED: Ketorolac Tromethamine 30 MG/ML VIAL ONE (18:15)
[2018-08-24 18:49] LABS: #Basophils 0.1 thou/uL (0.0-0.2); #Eosinphils 0.1 thou/uL (0.0-0.7); #Lymphocytes 3.4 thou/uL (1.20-3.40); #Monocytes 0.8 thou/uL (0.11-0.59); #Neutrophils 4.8 thou/uL (1.40-6.50); %Basophils 0.9 % (0.0-1.0); %Eosinophils 1.1 % (0.0-10.0); %Monocytes 8.3 % (0.0-10.0); %Neutrophils 52.8 % (42.0-75.0); Red Blood Cell (RBC) Count 4.92 mill/uL (4.20-5.40); White Blood Cell (WBC) Count 9.1 thou/uL (4.8-10.8)
[2018-08-24 19:01] LABS: Anisocytosis SLIGHT = 6-15 cells (100X) (0-5/hpf); MDiff Complete? YES; Mean Corpuscular HGB CONC 33.6 g/dL (32.0-36.0); Mean Corpuscular Hemoglobin 26.5 pg (27.0-31.0); Mean Corpuscular Volume 78.8 fL (78.0-98.0); Mean Platelet Volume 8.7 fL (7.4-10.4); Platelet Count 360 thou/uL (130-400); RBC Distribution Width 22.6 % (11.5-14.5); Target Cells SLIGHT = 2-5 cells (100X) (0-1/hpf)
== END 2018-08-24 19:07 | disposition home or self-care (01) ==
LOC: ERS 16:35
DX: N93.9 Abnormal uterine and vaginal bleeding, unspecified (principal); I10 Essential (primary) hypertension; J45.909 Unspecified asthma, uncomplicated; F41.9 Anxiety disorder, unspecified; F32.9 Major depressive disorder, single episode, unspecified; F20.9 Schizophrenia, unspecified; F43.10 Post-traumatic stress disorder, unspecified; F17.210 Nicotine dependence, cigarettes, uncomplicated
CPT/HCPCS: 36415; 81003; 81015; 81025; 85025; 96372; J1885

== ENCOUNTER 2018-11-05 20:07 | Emergency (ER) | payer MEDICARE, MEDICAID ==
[2018-11-05 20:52] LABS: #Basophils 0.1 thou/uL (0.0-0.2); #Eosinphils 0.1 thou/uL (0.0-0.7); #Lymphocytes 3.2 thou/uL (1.20-3.40); #Monocytes 0.7 thou/uL (0.11-0.59); #Neutrophils 5.9 thou/uL (1.40-6.50); %Basophils 0.9 % (0.0-1.0); %Eosinophils 1.2 % (0.0-10.0); %Lymphocytes 32.4 % (21.0-51.0); %Monocytes 6.6 % (0.0-10.0); %Neutrophils 58.8 % (42.0-75.0); Hemoglobin 12.8 g/dL (12.0-16.0); Mean Corpuscular HGB CONC 33.6 g/dL (32.0-36.0); Mean Corpuscular Hemoglobin 28.3 pg (27.0-31.0); Mean Corpuscular Volume 84.4 fL (78.0-98.0); Mean Platelet Volume 8.4 fL (7.4-10.4); Platelet Count 361 thou/uL (130-400); RBC Distribution Width 21.6 % (11.5-14.5); Red Blood Cell (RBC) Count 4.53 mill/uL (4.20-5.40); White Blood Cell (WBC) Count 9.9 thou/uL (4.8-10.8)
[2018-11-05 20:54] LABS: Bilirubin Negative (Negative); Blood, Urine Negative (Negative); Clarity CLEAR (Clear); Glucose, Urine (Dipstick) Negative (Negative); Leukocyte Trace (Negative); Nitrite Negative (Negative); Protein, Urine (Dipstick) Negative (Neg-Trace); Specific Gravity, Urine 1.019 (1.002-1.036); pH, Urine 6.5 (5.0-9.0)
[2018-11-05 20:56] LABS: Pregnancy Test - Urine (BHCG) Negative (Negative); Pregu Control Background? CLEAR/WHITE (CLR/WHITE); Pregu Control Bar Appear? YES (CONTROL BAR); Specific Gravity 1.019 (1.002-1.036)
[2018-11-05 20:57] LABS: Bacteria/HPF None Seen HPF (None Seen)
[2018-11-05 20:58] LABS: Hyaline Casts/LPF 0-3 HYALINE CAST LPF (0-3 Hyaline); Pathc Cast-AUWi Flag 4.48 (0-2.49)
[2018-11-05 21:03] LABS: Amphetamine Not Detected (NotDetected); Barbiturates Screen Not Detected (NotDetected); Benzodiazepine Screen Not Detected (NotDetected); Cocaine Metabolite Screen Detected (NotDetected); Medtox Control Line Valid? VALID (VALID); Medtox Reader # READER 4; Methadone Not Detected (NotDetected); Methamphetamine Not Detected (NotDetected); Opiate Screen Not Detected (NotDetected); Oxycodone Screen Not Detected (NotDetected); Phencyclidine (PCP) Not Detected (NotDetected); THC/Cannabinoid Screen Detected (NotDetected); Tricyclic Screen Detected (NotDetected)
[2018-11-05 21:14] LABS: ALT (SGPT) 8 U/L (8-55); AST (SGOT) 9 U/L (5-34); Acetaminophen Less than 6.0 mcg/mL (10.0-30.0); Albumin 3.8 g/dL (3.5-5.0); Alcohol Less than 10 mg/dL (Less than 10); Alkaline Phosphatase 79 U/L (40-150); Anion Gap 12 mmol/L (10-20); BUN (Urea Nitrogen) 9 mg/dL (7.0-18.7); Bilirubin, Total 0.2 mg/dL (0.2-1.2); CK (CPK) 128 U/L (29-168); Calc. Creatinine Clearance 0 mL/min (70-130); Calcium 9.4 mg/dL (7.8-10.44); Carbon Dioxide 26 mmol/L (22-29); Chloride 106 mmol/L (98-107); Estimated GFR-MDRD 72; Globulin 3.1 g/dL (2.4-3.5); Glucose 129 mg/dL (70-105); Protein, Total 6.9 g/dL (6.0-8.3); Salicylate Less than 8.0 mg/dL (15.0-30.0); Sodium 140 mmol/L (136-145)
[2018-11-05] MEDS ORDERED: traZODone HCl 50 MG TAB ONE (23:12)
[2018-11-05] MEDS ORDERED: risperiDONE 1 MG TAB ONE (23:12)
[2018-11-05] MEDS ORDERED: Nicotine 14 MG PATCH TOP SCH (23:15)
== END 2018-11-06 03:25 ==
LOC: ERS 20:07
DX: R45.851 Suicidal ideations (principal); F41.9 Anxiety disorder, unspecified; F20.9 Schizophrenia, unspecified; F32.9 Major depressive disorder, single episode, unspecified; F43.10 Post-traumatic stress disorder, unspecified; F17.210 Nicotine dependence, cigarettes, uncomplicated; I10 Essential (primary) hypertension; Z79.899 Other long term (current) drug therapy; Z79.891 Long term (current) use of opiate analgesic
CPT/HCPCS: 36415; 80053; 80306; 80307; 81003; 81015; 81025; 82550; 84443; 85025; 99285

== ENCOUNTER 2019-05-02 04:04 | Emergency (ER) | payer MEDICARE, MEDICAID ==
[2019-05-02] MEDS ORDERED: Famotidine/PF 20 mg/2ml Vial ONE (04:35)
[2019-05-02] MEDS ORDERED: Sucralfate 1 GM/10 ML UDCUP ONE (04:35)
[2019-05-02] MEDS ORDERED: Ondansetron ODT 4 MG TAB ONE (04:35)
[2019-05-02 04:55] LABS: #Basophils 0.1 thou/uL (0.0-0.2); #Lymphocytes 2.6 thou/uL (1.20-3.40); #Neutrophils 15.1 thou/uL (1.40-6.50); %Basophils 0.4 % (0.0-1.0); %Eosinophils 0.2 % (0.0-10.0); %Lymphocytes 13.6 % (21.0-51.0); %Monocytes 5.3 % (0.0-10.0); %Neutrophils 80.5 % (42.0-75.0); Hemoglobin 12.6 g/dL (12.0-16.0); Mean Corpuscular HGB CONC 34.8 g/dL (32.0-36.0); Mean Corpuscular Hemoglobin 30.2 pg (27.0-31.0); Mean Corpuscular Volume 86.8 fL (78.0-98.0); Mean Platelet Volume 7.6 fL (7.4-10.4); Platelet Count 362 thou/uL (130-400); Red Blood Cell (RBC) Count 4.16 mill/uL (4.20-5.40); White Blood Cell (WBC) Count 18.8 thou/uL (4.8-10.8)
[2019-05-02 05:20] LABS: ALT (SGPT) 13 U/L (8-55); AST (SGOT) 14 U/L (5-34); Acetaminophen Less than 6.0 mcg/mL (10.0-30.0); Albumin 4.2 g/dL (3.5-5.0); Alcohol Less than 10 mg/dL (Less than 10); Alkaline Phosphatase 73 U/L (40-110); Anion Gap 14 mmol/L (10-20); BUN (Urea Nitrogen) 12 mg/dL (7.0-18.7); Bilirubin, Total 0.4 mg/dL (0.2-1.2); Calc. Creatinine Clearance 0 mL/min (70-130); Calcium 9.8 mg/dL (7.8-10.44); Carbon Dioxide 22 mmol/L (22-29); Chloride 105 mmol/L (98-107); Estimated GFR-MDRD Greater than 90; Globulin 3.6 g/dL (2.4-3.5); Glucose 116 mg/dL (70-105); Potassium 3.5 mmol/L (3.5-5.1); Protein, Total 7.8 g/dL (6.0-8.3); Salicylate Less than 8.0 mg/dL (15.0-30.0); Sodium 137 mmol/L (136-145)
[2019-05-02 06:44] LABS: Bacteria/HPF None Seen HPF (None Seen); Bilirubin Negative (Negative); Blood, Urine Negative (Negative); Clarity Clear (Clear); Glucose, Urine (Dipstick) Normal (Negative); Leukocyte 25 Leu/uL (Negative); Nitrite Negative (Negative); Protein, Urine (Dipstick) 30 mg/dL (Neg-Trace); RBC/HPF 0-3 HPF (0-3); Urobilinogen Normal mg/dL (Less than 2); WBC/HPF 0-3 HPF (0-3)
[2019-05-02 06:45] LABS: Pregnancy Test - Urine (BHCG) Negative (Negative); Pregu Control Background? CLEAR/WHITE (CLR/WHITE); Pregu Control Bar Appear? YES (CONTROL BAR)
[2019-05-02 06:59] LABS: Medtox Reader # READER 4
[2019-05-02 07:00] LABS: Amphetamine Not Detected (NotDetected); Barbiturates Screen Not Detected (NotDetected); Benzodiazepine Screen Not Detected (NotDetected); Cocaine Metabolite Screen Detected (NotDetected); Medtox Control Line Valid? VALID (VALID); Methadone Not Detected (NotDetected); Methamphetamine Not Detected (NotDetected); Opiate Screen Not Detected (NotDetected); Oxycodone Screen Not Detected (NotDetected); Phencyclidine (PCP) Not Detected (NotDetected); THC/Cannabinoid Screen Detected (NotDetected); Tricyclic Screen Detected (NotDetected)
--- NOTE | 2019-05-02 08:06 | CT ---
CT abdomen and pelvis with IV contrast HISTORY: Abdominal pain. COMPARISON: 02/23/2016. FINDINGS: Minimal linear scarring at the lung bases. The liver, spleen, kidneys, adrenal glands, and pancreas have a normal CT appearance. Nonspecific lymph nodes within the retroperitoneum. Appendix is not inflamed. No evidence of bowel obstruction. Prominent calcification throughout the arterial st ructures. Contrast material within the veins of the retroperitoneum, spine, and left lower leg consistent with the injection of contrast. Degenerative changes lumbar spine. IMPRESSION: Atherosclerosis. No acute abnormalities are demonstrated.
[2019-05-02] MEDS ORDERED: ISOVUE-370 76%-LOCM 1 ML ONE (12:16)
== END 2019-05-02 10:47 | disposition home or self-care (01) ==
LOC: ERS 04:04
DX: R10.9 Unspecified abdominal pain (principal); I10 Essential (primary) hypertension; J45.909 Unspecified asthma, uncomplicated; F32.9 Major depressive disorder, single episode, unspecified; F41.9 Anxiety disorder, unspecified; F20.9 Schizophrenia, unspecified; F43.10 Post-traumatic stress disorder, unspecified; Z79.899 Other long term (current) drug therapy
CPT/HCPCS: 36415; 74177; 80053; 80306; 80307; 81003; 81015; 81025; 84443; 85025; 93005; 96374; Q0162; S0028

== ENCOUNTER 2019-06-19 14:54 | Inpatient (IN) | payer MEDICARE, MEDICAID ==
--- NOTE | 2019-06-19 15:34 | RAD ---
Chest AP view INDICATION: History of suicidal ideation COMPARISON: June 25, 2018 FINDINGS: Lungs:The lungs are clear Cardiac silhouette:The cardiomediastinal silhouette appears within normal limits. Pulmonary vasculature:Normal Pleural spaces:No pleural effusion or pneumothorax is demonstrated. Upper abdomen:No abnormality seen. Osseous structures: No acute osseous abnormality. Additional findings:None. IMPRESSION: No acute cardiopulmonary abnormality.
[2019-06-19 15:40] LABS: Bacteria/HPF None Seen HPF (None Seen); Bilirubin Negative (Negative); Blood, Urine Negative (Negative); Clarity Turbid (Clear); Glucose, Urine (Dipstick) Normal (Negative); Leukocyte 75 Leu/uL (Negative); Nitrite Negative (Negative); Protein, Urine (Dipstick) 10 mg/dL (Neg-Trace); RBC/HPF 0-3 HPF (0-3)
[2019-06-19 15:41] LABS: Pregnancy Test - Urine (BHCG) Negative (Negative); Pregu Control Background? CLEAR/WHITE (CLR/WHITE); Pregu Control Bar Appear? YES (CONTROL BAR); Specific Gravity 1.013 (1.002-1.036)
[2019-06-19 15:44] LABS: #Basophils 0.1 thou/uL (0.0-0.2); #Eosinphils 0.1 thou/uL (0.0-0.7); #Lymphocytes 3.8 thou/uL (1.20-3.40); #Monocytes 0.9 thou/uL (0.11-0.59); #Neutrophils 6.7 thou/uL (1.40-6.50); %Basophils 1.3 % (0.0-1.0); %Eosinophils 0.7 % (0.0-10.0); %Lymphocytes 32.7 % (21.0-51.0); %Monocytes 7.3 % (0.0-10.0); Hemoglobin 13.4 g/dL (12.0-16.0); Mean Corpuscular HGB CONC 33.7 g/dL (32.0-36.0); Mean Corpuscular Hemoglobin 29.6 pg (27.0-31.0); Mean Corpuscular Volume 87.7 fL (78.0-98.0); Mean Platelet Volume 7.8 fL (7.4-10.4); Platelet Count 494 thou/uL (130-400); RBC Distribution Width 18.4 % (11.5-14.5); Red Blood Cell (RBC) Count 4.55 mill/uL (4.20-5.40); White Blood Cell (WBC) Count 11.5 thou/uL (4.8-10.8)
[2019-06-19 15:49] LABS: Cocaine Metabolite Screen Detected (NotDetected); Medtox Reader # READER 4; THC/Cannabinoid Screen Detected (NotDetected); Tricyclic Screen Detected (NotDetected)
[2019-06-19 15:50] LABS: Amphetamine Not Detected (NotDetected); Barbiturates Screen Not Detected (NotDetected); Benzodiazepine Screen Not Detected (NotDetected); Medtox Control Line Valid? VALID (VALID); Methadone Not Detected (NotDetected); Methamphetamine Not Detected (NotDetected); Opiate Screen Not Detected (NotDetected); Oxycodone Screen Not Detected (NotDetected); Phencyclidine (PCP) Not Detected (NotDetected)
--- NOTE | 2019-06-19 16:05 | CT ---
CT OF THE ABDOMEN AND PELVIS WITHOUT IV CONTRAST INDICATION: Suprapubic abdominal pain COMPARISON: May 02, 2019 FINDINGS: This examination is limited for the evaluation of solid organs and vascular structures due to the lac k of intravenous contrast. ABDOMEN: Lung bases: Clear Liver: No focal lesion. Gallbladder: Normal appearing. Pancreas: Normal. Adrenal glands: Normal. Spleen: Normal. Kidneys and ureters: Normal. No hydronephrosis. Vasculature: There are moderate vascular calcifications seen involving the visualized vasculature. Lymph nodes:No lymphadenopathy. Free fluid in abdomen:No free fluid is evident. PELVIS: Small and large bowel: Normal Appendix:Normal Bladder: Decompressed Rectal and perirectal soft tissues:Normal. Reproductive structures: Normal. Free fluid in pelvis: No free fluid is evident. Lymphadenopathy pelvis: No lymphadenopathy is evident. Osseous structures: No acute osseous abnormality. No destructive osteolytic or osteoblastic lesion i s identified. There is scattered degenerative and osteoarthritic changes. Soft tissues:Normal. IMPRESSION: 1. No acute abnormality.
[2019-06-19 16:09] LABS: ALT (SGPT) 21 U/L (8-55); AST (SGOT) 18 U/L (5-34); Acetaminophen Less than 6.0 mcg/mL (10.0-30.0); Albumin 4.4 g/dL (3.5-5.0); Alcohol Less than 10 mg/dL (Less than 10); Alkaline Phosphatase 85 U/L (40-110); Anion Gap 12 mmol/L (10-20); BUN (Urea Nitrogen) 7 mg/dL (7.0-18.7); Bilirubin, Total 0.4 mg/dL (0.2-1.2); Calc. Creatinine Clearance 0 mL/min (70-130); Calcium 9.6 mg/dL (7.8-10.44); Carbon Dioxide 28 mmol/L (22-29); Chloride 106 mmol/L (98-107); Estimated GFR-MDRD 80; Globulin 3.4 g/dL (2.4-3.5); Glucose 103 mg/dL (70-105); Potassium 3.6 mmol/L (3.5-5.1); Protein, Total 7.8 g/dL (6.0-8.3); Salicylate Less than 8.0 mg/dL (15.0-30.0); Sodium 142 mmol/L (136-145)
[2019-06-19] MEDS ORDERED: Labetalol HCl 100 MG/20 ML VIAL ONE (16:25)
[2019-06-19] MEDS ORDERED: Nitroglycerin 2% Ointment 1 INCH/1 GM Packet ONE (16:25)
[2019-06-19] MEDS ORDERED: Aspirin Chewable 81 MG TAB ONE (16:25)
[2019-06-19] MEDS ORDERED: Lorazepam 2 MG/ML VIAL ONE (16:42)
[2019-06-19 16:53] LABS: CKMB 2.9 ng/mL (0-6.6)
[2019-06-19] MEDS ORDERED: Lorazepam 2 MG/ML VIAL SLOW IVP SCH (18:15)
[2019-06-19 18:48] LABS: Troponin I 0.063 ng/mL (< 0.028)
[2019-06-19] MEDS ORDERED: Senokot S 8.6-50 MG TAB PO PRN (19:17)
[2019-06-19 22:06] LABS: Troponin I 0.148 ng/mL (< 0.028)
[2019-06-19] MEDS ORDERED: Enoxaparin Sodium 100 MG/ML SYRINGE SC SCH (22:45)
[2019-06-19] MEDS: Zolpidem Tartrate 5 MG TAB PO SCH (22:52)
[2019-06-19] MEDS: Sodium Chloride 0.9% 1,000 ML IV SCH (22:55)
[2019-06-19] MEDS: cloNIDine 0.3 MG TAB PO SCH (23:13)
[2019-06-20] MEDS: traZODone HCl 150 MG TAB PO SCH ×2 (02:02→21:14)
--- NOTE | 2019-06-20 02:44 | HP ---
PRIMARY CARE PROVIDER: Breonna Butler. CHIEF COMPLAINT: Suicidal ideation. HISTORY OF PRESENT ILLNESS: This is a 48-year-old female, who presented to [facility] Emergency Department complaining of suicidal ideation without a plan over the last 48 hours. The patient with a prior history of suicidal ideation as well as inpatient psychiatric admissions in the [place] area as well as [facility] in 2018. The history is obtained after review of the emergency room record as patient is a poor historian and somnolent during the exam. The patient apparently had recently relocated back to [place], [place] after living in [place] and was unable to refill and continue her chronic medications including psychiatric medications. The patient also states she was unable to establish care with [facility] after the recent move. The patient initially complained of generalized body pain without documented fever or chills. The patient initially stated her pain was 8/10, generalized, including the abdomen, back and legs. The patient denied any recent trauma injury, exposure history, or family members with similar symptoms. The patient does admit to history of bipolar disorder and schizophrenia. In the emergency room, the patient underwent general evaluation, receiving lorazepam, transdermal nitroglycerin, enteric-coated aspirin 324 mg and labetalol IV. Metabolic screening showed mildly elevated troponin I and urine drug screen was positive for tricyclics, cocaine, and cannabis. The patient was transferred to the telemetry unit for further evaluation. PAST MEDICAL HISTORY: 1. History of suicidal ideation. 2. Peptic ulcer disease with gastric ulcers. 3. Asthma. 4. Polysubstance abuse. 5. Hypertension, untreated. 6. Depression/anxiety. 7. Schizophrenia. 8. Posttraumatic stress disorder with inpatient psychiatric admissions in April 2019 and 2017 at [facility]. PAST SURGICAL HISTORY: Status post ectopic . CURRENT MEDICATIONS: 1. Clonidine 0.3 mg p.o. t.i.d. 2. Cymbalta 60 mg p.o. daily. 3. Protonix 40 mg p.o. daily. 4. Perphenazine 16 mg p.o. t.i.d. 5. Seroquel 800 mg p.o. at bedtime. 6. Tramadol 50 mg p.o. q.i.d. p.r.n. 7. Trazodone 150 mg p.o. at bedtime. 8. Ambien 10 mg p.o. at bedtime. 9. List may not be can completely accurate and needs updating in the a.m. ALLERGIES: DICYCLOMINE AND LISINOPRIL. FAMILY HISTORY: Positive for diabetes mellitus and hypertension. SOCIAL HISTORY: The patient resides in [place], [place]. Positive cocaine and marijuana use. Occasional alcohol use. Smokes up to half a pack of cigarettes daily for over 20 years. REVIEW OF SYSTEMS: CONSTITUTIONAL: Negative for weight loss or gain, ability to conduct usual activities. SKIN: Negative for rash, itching. EYES: Negative for double vision, pain. ENT/MOUTH: Negative for nose bleeding, neck stiffness, pain, tenderness. CARDIOVASCULAR: Negative for palpitations, dyspnea on exertion, orthopnea. RESPIRATORY: Negative for shortness of breath, wheezing, cough, hemoptysis, fever or night sweats. GASTROINTESTINAL: Negative for poor appetite, abdominal pain, heartburn, nausea, vomiting, constipation, or diarrhea. GENITOURINARY: Negative for urgency, frequency, dysuria, nocturia. MUSCULOSKELETAL: Negative for pain, swelling. NEUROLOGIC/PSYCHIATRIC: Negative for anxiety, depression. ALLERGY/IMMUNOLOGIC: Negative for skin rash, bleeding tendency. Otherwise negative except as stated per HPI. PHYSICAL EXAMINATION: VITAL SIGNS: On admission, blood pressure 143/75, pulse 100, respiratory rate 20, temperature 98.4 degrees Fahrenheit, O2 saturation 100% on room air. GENERAL APPEARANCE: This is a 48-year-old female, opens eyes and answers questions briefly and then falls asleep. No acute distress. HEENT: Pupils are equal, round, reactive to light and accommodation. Extraocular muscles are intact. Mild conjunctival injection. No scleral icterus. Nares patent, OP is clear. Oral mucosa dry. NECK: Supple. No cervical adenopathy. No thyromegaly. No carotid bruits. No JVD appreciated. Cervical spine with full active and passive range of motion. No meningeal signs noted. CHEST: Bilateral rhonchi with diminished breath sounds in the bases. CARDIOVASCULAR EXAM: S1, S2 without noted murmur, rub, or gallop. ABDOMEN: Rounded, soft, nontender nondistended. Bowel sounds are positive in all 4 quadrants. There is no hepatosplenomegaly. No abdominal bruits, no rebound or guarding appreciated. EXTREMITIES: Warm and dry with fair turgor. No clubbing, cyanosis, or asymmetric edema appreciated. Pulses palpable distally at the dorsalis pedis, posterior tibial, and popliteal arteries bilaterally. Capillary refill less than 2 seconds. NEUROLOGIC: Cranial nerves 2 through 12 are grossly intact. The patient is somnolent, but opens eyes and answers questions briefly when directly engaged. Moves all extremities randomly. PERTINENT LABORATORY AND X-RAY FINDINGS: Basic metabolic profile within normal limits. LFTs within normal limits. Troponin I ranged between 0.063 to 0.148. Lipase 8. CBC showed a white blood cell count of 11.5, hemoglobin 13.4, hematocrit 40, platelet count 494 with 58% neutrophils. Urine BETA-HCG negative on 06/19/2019. Urine drug screen dated 06/19/2019, positive for tricyclics, cocaine, and cannabinoids. Plasma alcohol level less than 10. IMAGIN. CT of the abdomen and pelvis dated 06/19/2019, showed no acute intraabdominal process. 2. Portable chest x-ray dated 06/19/2019, showed no acute cardiopulmonary process. 3. EKG dated 06/19/2019, by my interpretation shows sinus mechanism with heart rates in the 70s. Normal R-wave progression noted in the precordial leads. T-wave inversion in leads V3 through V6 as well as inferior leads II, III and F. ASSESSMENT/PLAN: 1. Suicidal ideation. The patient will be admitted to the telemetry unit. We will continue sitter for one-on-one observation. We will consult [facility] Services when medically stabilized. The patient with longstanding history of recurrent suicidal ideation and inpatient psychiatric admissions. 2. Polysubstance abuse. Continue general supportive management. Resume Lorazepam 1 mg IV q.6 hours p.r.n. See #1 above. 3. Non-ST elevation myocardial infarction type 2 secondary to demand ischemia. The patient's elevated troponin I is secondarily to demand ischemia in the context of cocaine abuse. Continue aspirin 325 mg daily. Consult Cardiology Service in the a.m. for any further recommendations. 4. Hypertensive urgency secondarily to polysubstance abuse and medication noncompliance. Continue hydralazine IV p.r.n. systolic greater than or equal to 170. Resume clonidine 0.3 mg b.i.d. 5. Prophylaxis. Sequential compression devices while in bed. Sitter for one-on-one observation. [facility] consult when medically stabilized. CODE STATUS: Full. Surrogate medical decision maker is Jamal Gale. Job ID: [id number]
[2019-06-20 05:16] LABS: Anion Gap 10 mmol/L (10-20); BUN (Urea Nitrogen) 10 mg/dL (7.0-18.7); Calc. Creatinine Clearance 119 mL/min (70-130); Calcium 8.7 mg/dL (7.8-10.44); Carbon Dioxide 26 mmol/L (22-29); Cardiac Risk 4.4 (Less than 4.5); Chloride 108 mmol/L (98-107); Cholesterol 172 mg/dl (< 200 Desired); Estimated GFR-MDRD 86; Glucose 112 mg/dL (70-105); HDL Cholesterol 39 mg/dL (>60 Neg Risk); LDL Cholesterol, Calculated 110 mg/dL; Potassium 3.5 mmol/L (3.5-5.1); Sodium 140 mmol/L (136-145); Triglycerides 116 mg/dL (Less than 150)
[2019-06-20 05:22] LABS: Band 2 % (5-11); Eosinophils 1 % (0-10); Lymphocytes 43 % (21-51); MDiff Complete? YES; Mean Corpuscular HGB CONC 33.3 g/dL (32.0-36.0); Mean Corpuscular Hemoglobin 29.7 pg (27.0-31.0); Mean Corpuscular Volume 89.1 fL (78.0-98.0); Mean Platelet Volume 7.6 fL (7.4-10.4); Metamyelocyte 1 % (0-0); Monocytes 10 % (0-10); Neutrophil 41 % (42-75); Platelet Count 411 thou/uL (130-400); Platelet Morphology Comment Appears Increased; RBC Distribution Width 18.5 % (11.5-14.5); RBC Morphology Normal; Reactive Lymphocytes 2 % (0-10); Red Blood Cell (RBC) Count 4.03 mill/uL (4.20-5.40); White Blood Cell (WBC) Count 10.3 thou/uL (4.8-10.8)
[2019-06-20] MEDS: Nitroglycerin 0.4 MG TAB (25 Tab Bottle) PO PRN ×2 (08:04→08:10)
[2019-06-20] MEDS: Acetaminophen 325 MG TAB PO PRN ×2 (08:15→14:55)
[2019-06-20] MEDS ORDERED: Potassium Chloride 20 MEQ TAB PO SCH (09:00)
[2019-06-20] MEDS ORDERED: FLU VACC QS2019-20(6MOS UP)/PF 60 MCG/0.5 ML SYRINGE IM ONE (09:00)
[2019-06-20] MEDS ORDERED: Enoxaparin Sodium 60 MG/0.6 ML SYRINGE SC SCH (09:09)
[2019-06-20] MEDS ORDERED: Enoxaparin Sodium 100 MG/ML SYRINGE SC SCH (09:15)
[2019-06-20] MEDS: cloNIDine 0.3 MG TAB PO SCH ×2 (09:30→21:11)
[2019-06-20] MEDS: DULoxetine 60 MG CAP PO SCH (09:30)
[2019-06-20] MEDS: Aspirin 325 mg Enteric Coated Tablet PO SCH (09:30)
[2019-06-20] MEDS: Amlodipine 5 MG TAB PO SCH (09:30)
--- NOTE | 2019-06-20 09:48 | CON ---
DATE OF CONSULTATION: 06/20/2019 REASON FOR CONSULTATION: Chest pain and abnormal EKG, indeterminate troponin levels. HISTORY OF PRESENT ILLNESS: Ms. Camarillo is a 48-year-old woman. She said she came to the emergency room yesterday because she was having suicidal ideation. While she was here, she reported that she did have some chest pain and EKG was done which was abnormal. She therefore has been admitted. The patient's pain is in the middle of her chest. The patient states that she has had inpatient psychiatric admissions in the past. She has also been at [facility]. The patient states she was in [place], but was unable to get her medications including psychiatric medications. She is trying to establish care with [facility]. The patient reports that she has bipolar disorder and schizophrenia. Metabolic screening did show positive for tricyclics, cocaine, and cannabis. The patient states she smoked a crack cocaine the day prior to this emergency room visit. The patient states her suicidal ideation has been recent and that is actually the reason she came to the emergency room. PAST MEDICAL HISTORY: 1. History of suicidal ideation in the past. 2. Previous admissions for psychiatric illness. 3. Peptic ulcer disease in the past. 4. Reactive airway disease. 5. Polysubstance abuse. 6. Hypertension. 7. Schizophrenia. 8. Bipolar disorder. 9. Posttraumatic stress disorder. According to the notes, she has had inpatient psychiatric admissions in April 2019 and 2017 at [facility]. MEDICATIONS: It is really unclear how much she was taking. The medication list includes: 1. Clonidine. 2. Cymbalta. 3. Protonix. 4. Seroquel. 5. Tramadol. 6. Trazodone. 7. Ambien. But she is really unsure about a lot of her medicines. ALLERGIES: TO LISINOPRIL CAUSES THROAT SWELLING. FAMILY HISTORY: Positive for diabetes and hypertension. SOCIAL HISTORY: She said she recently moved back to this area about a week ago, that is what she tells me. She says she smokes a pack of cigarettes a day also. REVIEW OF SYSTEMS: CONSTITUTIONAL: No significant weight gain or loss. She states she is hungry. VISION: No changes. HEARING: No changes. PULMONARY: No cough or wheezing. GASTROINTESTINAL: No nausea, vomiting, or diarrhea. SKIN: No rashes. NEUROLOGIC: No unilateral weakness or numbness. PSYCHIATRIC: Positive for suicidal ideation. PHYSICAL EXAMINATION: GENERAL: This is a 48-year-old woman. She has a lot of trouble, staying still in bed. She is moving around the bed almost continuously. She said she had "restless legs syndrome." Her affect is normal currently. VITAL SIGNS: Her blood pressure 150/70, earlier was 180/90; pulse 90. EYES: Sclerae nonicteric. MOUTH: Mucous membranes moist. NECK: Supple. No lymphadenopathy. LUNGS: Clear. No wheezing, rales, or rhonchi. CARDIAC: Normal S1. Normal S2. There is no murmur, rub, or gallop. ABDOMEN: Soft and nontender. No hepatosplenomegaly. EXTREMITIES: No clubbing or cyanosis. There is no edema. DIAGNOSTIC STUDIES: EKG shows sinus rhythm with T-wave inversions and QT prolongation in leads II, III, aVF, and V3 through V6. ASSESSMENT: 1. Suicidal ideation. 2. Longstanding psychiatric disorder as outlined above including suicidal ideation, schizophrenia, bipolar disorder, and posttraumatic stress syndrome. 3. It sounds like there is definitely an issue of noncompliance with medications, although she said it is generally because she cannot get the medicines. 4. Drug abuse including cocaine addiction. 5. Chest pain, cardiac in etiology. This could be related to underlying coronary artery disease, also cocaine could certainly cause coronary spasm. Another possibility may be takotsubo syndrome. This is a very difficult situation. If stents are placed in and if she does not take medicines, there is a high risk of with stent thrombosis. We would like to try to avoid stenting if possible. We would like to try to treat her medically and do an echocardiogram. We will continue aspirin. Continue Lovenox, statin therapy. Echocardiogram. Nitrates if needed. We will add amlodipine. Echocardiogram to give us some idea whether this could be potentially takotsubo's. Ultimately, we will likely need cardiac catheterization. The patient states now all she wants is to eat. This is a difficult situation with this patient with multiple severe problems including severe psychiatric problems. Job ID: [id number]
[2019-06-20 09:54] LABS: CKMB 2.3 ng/mL (0-6.6)
[2019-06-20] MEDS ORDERED: Ketorolac Tromethamine 30 MG/ML VIAL IVP SCH (10:15)
[2019-06-20] MEDS: Sodium Chloride 0.9% 1,000 ML IV SCH (10:35)
--- NOTE | 2019-06-20 10:47 | PRG ---
DATE OF SERVICE: 06/20/2019 SUBJECTIVE: The patient is seen and examined at the bedside. She had the chest pain this morning. She was giving two nitros and electrocardiogram was performed. Cardiology consultation was requested. Her chest pain improved after nitroglycerin. She complains about back pain too, which is across her lower back and radiates to both lower extremities. She says that she had this pain before she came in. Apparently, she was in [facility], but they did not do any diagnostic workup on her. She was told that this was most likely related to her drug use. OBJECTIVE: VITAL SIGNS: Blood pressure is 179/88, pulse is 86, respirations 16, temperature is 97.8, and O2 saturation is 92% on room air. HEENT: Head is atraumatic and normocephalic. Eyes are PERRLA. Sclerae are nonicteric. Oral mucosa is moist. NECK: Supple. LUNGS: Clear. HEART: S1 and S2 normal. No S3. No S4. ABDOMEN: Soft, obese, and nontender. EXTREMITIES: No clubbing, cyanosis, or edema. Peripheral pulses palpable on both tibialis posterior and dorsalis pedis arteries. Lumbar spine area tender to palpation in the midportion and pain on palpation to both buttocks and back of both thighs and calves. Strength in both lower extremities normal. No sensory deficits. NEUROLOGIC: She follows my commands. She moves all 4 extremities. As mentioned above, there are no any motor or sensory deficits. LABORATORY DATA: Labs showed white count of 10.3, hemoglobin 12.0, hematocrit 35.9, platelet count 411,000. Sodium of 140, potassium 3.5, chloride 108, CO2 of 28, BUN 10, creatinine 0.86, glucose 112, CK-MB 2.3, troponin I 0.105. Total cholesterol , cholesterol 172, LDL 110, HDL 39. Microbiology, none. IMPRESSION: 1. Suicidal ideations. 2. Chest pain with indeterminate troponins and flipped T-waves on electrocardiogram. The patient was seen by dressmaking teacher, Dr. Phan, who recommends to continue Lovenox, statin therapy. Do echocardiogram. Nitrates p.r.n. as needed. He added amlodipine to control her blood pressure and ultimately, she will probably need cardiac catheterization. 3. Back pain with radiculopathy to both lower extremities. We will start her on Toradol x1 plus CT of the lumbar spine without contrast to elucidate possible etiology of that problem. 4. Long-standing psychiatric disorder with diagnosis of schizophrenia and posttraumatic stress disorder. 5. Depression/anxiety. 6. Polysubstance abuse. 7. Hypertension. 8. History of asthma. 9. History of peptic ulcer disease with gastric ulcers. As mentioned above, we will obtain CT of the lumbar spine without contrast. Amlodipine was added by dressmaking teacher to control her blood pressure. We will get echocardiogram. Continue statin and aspirin and she is started on full dose of Lovenox 90 mg q.12 hours subcutaneously. Job ID: [id number]
--- NOTE | 2019-06-20 11:49 | CT ---
CT LUMBAR SPINE WITHOUT CONTRAST: HISTORY: Ongoing back pain, x2 weeks. COMPARISON: None. FINDINGS: Five lumbar-type vertebrae. Lumbar spine vertebral body height is maintained. No fracture. Mild strai ghtening of normal lumbar lordosis. No spondylolisthesis or spondylolysis. No paraspinal mass, lymphadenopathy or hematoma. Atherosclerosis of a nonaneurysmal aorta is noted. V isualized solid organs are unremarkable. Visualized pelvic structures are unremarkable. Limited evaluation the contents of the central spinal canal and neural foramina due to technique. T11-T12: No significant central canal stenosis or significant foraminal narrowing. T12-L1: No significant canal stenosis or significant neural foraminal narrowing. L1-L2: No significant central canal stenosis or significant neural foraminal narrowing. L2-L3: No significant canal stenosis or significant neural foraminal narrowing. L3-L4: Broad-based disc bulge with a small left subarticular component. Mild central canal stenosis. There may be some encroachment upon the traversing left L4 nerve root. Bilaterally the neural foramina are patent. L4-L5: Broad-based disc bulge with a central/left subarticular disc protrusion. Moderate central carmen l stenosis. There is presumed mass effect and obscuration of the traversing left L5 nerve root. There is a component of inferior disc extrusion in the left subarticular zone. Moderate bilateral alisia ral foraminal narrowing. L5-S1: Vacuum disc phenomenon. Broad-based disc bulge makes contact with and partially obscures both traversing S1 nerve roots. No significant stenosis of the thecal sac. Moderate bilateral neural foraminal narrowing. Endplate sclerosis at L5-S1 due to degenerative change. IMPRESSION: Degenerative disc disease at L3-L4, L4-L5 and L5-S1 as described above. Transcribed Date/Time: 06/20/2019 12:09 PM
[2019-06-20] MEDS: hydrALAZINE 20 MG/ML VIAL SLOW IVP PRN ×2 (12:10→16:32)
[2019-06-20] MEDS: Lorazepam 0.5 MG TAB PO PRN (16:09)
[2019-06-20] MEDS: traMADol HCl 50 MG TAB PO SCH ×2 (17:35→21:12)
[2019-06-20] MEDS ORDERED: Enoxaparin Sodium 40 MG/0.4 ML SYRINGE SC SCH (21:00)
[2019-06-20] MEDS: Rosuvastatin 20 MG TAB PO SCH (21:12)
[2019-06-20] MEDS: Zolpidem Tartrate 5 MG TAB PO SCH (21:14)
[2019-06-20] MEDS ORDERED: Perphenazine 2 MG TAB PO SCH (21:15)
[2019-06-20] MEDS: Enoxaparin Sodium 100 MG/ML SYRINGE SC SCH (21:27)
[2019-06-20] MEDS ORDERED: Metoprolol Tartrate 25 MG TAB PO SCH (23:15)
[2019-06-20] MEDS ORDERED: Metoprolol Tartrate 5 MG/5 ML VIAL IVP SCH (23:15)
[2019-06-20] MEDS: Nicotine 7 MG PATCH TD SCH (23:52)
[2019-06-21] MEDS: Enoxaparin Sodium 100 MG/ML SYRINGE SC SCH ×2 (08:47→21:35)
[2019-06-21] MEDS: Perphenazine 2 MG TAB PO SCH ×2 (08:48→21:40)
[2019-06-21] MEDS: traMADol HCl 50 MG TAB PO SCH ×4 (08:48→21:37)
[2019-06-21] MEDS: Aspirin 325 mg Enteric Coated Tablet PO SCH (08:48)
[2019-06-21] MEDS: cloNIDine 0.3 MG TAB PO SCH ×2 (08:49→21:41)
[2019-06-21] MEDS: Amlodipine 5 MG TAB PO SCH (08:49)
[2019-06-21] MEDS: Lorazepam 0.5 MG TAB PO PRN ×2 (08:49→13:55)
[2019-06-21] MEDS: Metoprolol Tartrate 25 MG TAB PO SCH ×2 (08:49→21:41)
[2019-06-21] MEDS: DULoxetine 60 MG CAP PO SCH (08:49)
[2019-06-21] MEDS ORDERED: Perphenazine 2 MG TAB PO SCH (09:00)
--- NOTE | 2019-06-21 11:39 | PRG ---
DATE OF SERVICE: 06/21/2019 SUBJECTIVE: The patient is seen and examined at the bedside. She complains about the back pain and rated it approximately at 7 on a scale from 1 to 10. Her chest pressure is improved and she rates it at 5, so that is better. Also, she noticed that she is coughing up some dark sputum for approximately 2 weeks and she is asking for her Protonix she is taking at home. OBJECTIVE: VITAL SIGNS: Blood pressure is 164/89, pulse is 93, temperature is 98.4, respiratory rate is 18, O2 saturation is 97% on room air. HEENT: Head is atraumatic and normocephalic. Eyes are PERRLA. Sclerae are nonicteric. Oral mucosa is moist. NECK: Supple. LUNGS: Clear. HEART: S1 and S2 normal. ABDOMEN: Soft, nontender, and obese. EXTREMITIES: No clubbing, cyanosis, or edema. NEUROLOGIC: She follows my commands. She moves her all 4 extremities. There is no any motor deficit. There is definitely pain with applied pressure to the lower back, back of both thighs, and both calves. LABORATORY DATA: Troponin 0.105 and CK-MB 2.3 with magnesium of 1.9, that is from yesterday. Echocardiogram showed LVEF estimated at 55% to 60%. Moderate to severe concentric left ventricular hypertrophy with distal portion of apex severe hypokinesias. The left atrium is moderately dilated. She has mild mitral regurgitation. Lumbar spine CT without contrast showed degenerative disk disease at L3-L4, L4-L5, and L5-S1. There is a vacuum disk phenomenon at L5-S1 with broad-based disk bulge, which makes contact with and partially obscuring both traversing S1 nerve roots. There is no significant stenosis of the thecal sac at this level. There is a moderate bilateral neural foraminal narrowing. There is a moderate central canal stenosis caused by broad-based disk bulge with a central/left subarticular disk protrusion at the level of L4-L5. Also, there is L3-L4 broad-based disk bulge with a small left subarticular component with mild central canal stenosis. IMPRESSION: 1. Suicidal ideations. 2. Chest pain, which is felt to be cardiac by veterans contact representative, Dr. Phan, who is on the case. The patient is still evaluated, but most likely she will be offered cardiac catheterization for further evaluation. 3. Central canal stenosis, L4-L5 with radiculopathy bilaterally. We will get neurosurgical consultation since there is some disk involvement. We will continue her tramadol p.r.n. 4. Long-standing psychiatric disorder with diagnosis of schizophrenia and posttraumatic stress disorder. 5. Depression/anxiety. 6. Polysubstance abuse. 7. Hypertension. 8. History of asthma. 9. History of peptic ulcer disease with gastric ulcers. The patient is restarted on her PPI. She is restarted on her perphenazine 1 mg twice a day and we will continue her full dose of Lovenox subcutaneously every 12 hours for full anticoagulation along with amlodipine, which was added yesterday for blood pressure control and the rest of the regimen. Job ID: [id number]
[2019-06-21] MEDS ORDERED: Magnesium 2 GM/50 ML 2 GM in Premix Bag 1 BAG IVPB SCH (14:15)
[2019-06-21] MEDS ORDERED: Amlodipine 5 MG TAB PO SCH (14:15)
[2019-06-21] MEDS ORDERED: Communication Order-Pharmacy FS SCH (14:15)
--- NOTE | 2019-06-21 14:33 | PRG ---
DATE OF SERVICE: 06/21/2019 SUBJECTIVE: Ms. Camarillo feels much better today. Her chest discomfort has resolved. She looks much more relaxed and much more calm today. OBJECTIVE: VITAL SIGNS: Her blood pressure 160/86, pulse 76, regular. She did get tachycardic last night, but she responded to beta-blockers. LUNGS: Clear. CARDIAC: Normal S1. Normal S2. ABDOMEN: Soft and nontender. EXTREMITIES: Warm, dry. No clubbing. No cyanosis. There is no edema. DIAGNOSTIC STUDIES: EKG yesterday showed the deep T-wave inversions. ASSESSMENT: 1. Chest pain. 2. Markedly abnormal EKG. 3. Bipolar disorder with schizophrenia per the patient. 4. Prolonged QT interval. 5. Also, urine was positive for cannabinoids and cocaine. 6. Mild hypokalemia yesterday, potassium 3.5. PLAN: Discussed the situation with the patient. Discussed cardiac catheterization to see if she does or does not have underlying coronary artery disease. Discussed stent implantation. I told her that she would have to take aspirin lifetime and Plavix for at least 30 days. I would use a nondrug-coated stent in this patient. The patient understands procedure, including risk of stroke, heart attack, iodine allergy, loss of blood supply to leg or kidney, stent thrombosis, stent restenosis. There is no family available here today. She understands and she wishes to proceed. This will be arranged for tomorrow. Job ID: [id number]
--- NOTE | 2019-06-21 16:22 | CON ---
DATE OF CONSULTATION: Imaging and chart review note. I have not visited with Ms. Camarillo, but have reviewed her ER and consultation and progress notes extensively as well as the CT of the lumbar spine. It is reported to me that she is experiencing lower back pain and bilateral vague lower extremity pain. She came in for chest pain and suicidal ideations, which apparently the recurrent and chronic issue for her, with extensive psychiatric history for bipolar disorder and schizophrenia for which she is medicated, although has been medications according to the chart. Neurosurgery consulted for this back pain. On review of her imaging, she has extensive degenerative disk disease at L5 with vacuum disk phenomenon. Surprisingly, she still has healthy appearing disk height at this level. There does appear to be likely broad-based central disk protrusion at L4-L5 stenosis at L4-L5 and impinging upon the bilateral L5 nerve roots. There is also questionable stenosis in the bilateral foramina at L5. She does have a bilateral L5 pattern of pain. This could explain this. However, this will need emergent or inpatient evaluation. I would recommend the more pressing issues of her potential cardiac problems and psychiatric issues to be addressed and then we can follow up outpatient from there as needed. Job ID: [id number]
[2019-06-21] MEDS ORDERED: Potassium Chloride 20 MEQ TAB PO SCH (17:00)
[2019-06-21] MEDS: Zolpidem Tartrate 5 MG TAB PO SCH (21:36)
[2019-06-21] MEDS: traZODone HCl 150 MG TAB PO SCH (21:40)
[2019-06-21] MEDS: Rosuvastatin 20 MG TAB PO SCH (21:41)
[2019-06-21] MEDS: Nicotine 7 MG PATCH TD SCH (23:19)
[2019-06-22] MEDS: Sodium Chloride 0.9% 1,000 ML IV SCH ×2 (06:00→17:13)
[2019-06-22] MEDS: cloNIDine 0.3 MG TAB PO SCH ×2 (06:03→21:55)
[2019-06-22] MEDS: Amlodipine 5 MG TAB PO SCH (06:04)
[2019-06-22] MEDS: DULoxetine 60 MG CAP PO SCH (06:04)
[2019-06-22] MEDS: Perphenazine 2 MG TAB PO SCH ×2 (06:05→21:54)
[2019-06-22] MEDS: traMADol HCl 50 MG TAB PO SCH ×4 (06:05→21:55)
[2019-06-22] MEDS: Metoprolol Tartrate 25 MG TAB PO SCH ×2 (06:06→21:54)
[2019-06-22] MEDS: Aspirin 325 mg Enteric Coated Tablet PO SCH (06:06)
[2019-06-22 07:03] LABS: Anion Gap 11 mmol/L (10-20); BUN (Urea Nitrogen) 9 mg/dL (7.0-18.7); Calc. Creatinine Clearance 126 mL/min (70-130); Calcium 8.5 mg/dL (7.8-10.44); Carbon Dioxide 23 mmol/L (22-29); Chloride 108 mmol/L (98-107); Estimated GFR-MDRD Greater than 90; Glucose 109 mg/dL (70-105); Potassium 4.4 mmol/L (3.5-5.1); Sodium 138 mmol/L (136-145)
[2019-06-22] MEDS: Lorazepam 0.5 MG TAB PO PRN ×2 (09:24→18:58)
[2019-06-22] MEDS ORDERED: Heparin (Artline) 1,000 ML ONE (09:25)
[2019-06-22] MEDS ORDERED: Lidocaine 1% (PF) 30 ML VIAL ONE (09:25)
[2019-06-22] MEDS ORDERED: Fentanyl 100 MCG/2 ML VIAL ONE (10:19)
[2019-06-22] MEDS ORDERED: Iopamidol 370 76% 100 ML VIAL ONE (10:52)
[2019-06-22] MEDS ORDERED: Acetaminophen/Codeine 30-300mg Tablet PO PRN ×3 (11:15→12:32)
[2019-06-22] MEDS ORDERED: Nitroglycerin 0.4 MG TAB (25 Tab Bottle) SL PRN ×2 (11:15→12:32)
[2019-06-22] MEDS ORDERED: Sodium Chloride 0.9% 200 ML IV PRN ×2 (11:15→12:32)
[2019-06-22] MEDS ORDERED: Amlodipine 10 MG TAB PO SCH (11:15)
--- NOTE | 2019-06-22 17:19 | ULT ---
Ultrasound Doppler duplex arterial left groin: DATE: 06/22/2019 HISTORY: 48-year-old female status post cardiac catheterization via left groin. Left groin swelling. Rule out pseudoaneurysm. FINDINGS: At the soft tissues located a distance of approximately 0.5 to 1 cm anterior to a large artery (presu mably the left common femoral artery), there is a tiny, approximately 0.1 or 0.2 cm focus of pulsatile blood flow with low resistance waveform. It does not appear to connect to any adjacent bloo d vessel during ultrasound scanning, but it possible that there is a thin stalk is at is obscured by acoustic shadowing, connecting it to the adjacent femoral artery. If so, this would be a very smal l pseudoaneurysm. Anterior and superficial to those, there are 3 separate elongated thin fluid collections in the soft tissues without internal blood flow. The largest of these is approximately 2.6 x 0.7 x 1.3 cm. These may represent small hematomas. IMPRESSION: 1.) Tiny focus of pulsatile blood flow in the soft tissues close to the anterior surface of the left femoral artery, questionable for a tiny pseudoaneurysm, although the appearance is not typical. Further evaluation with CT angiogram of the pelvis, or follow-up left groin Doppler ultrasound in 12 to 48 hours, may be useful. 2) 3 small focal fluid collections in the superficial soft tissues anterior to the left femoral vesse ls, perhaps representing 3 tiny hematomas.
[2019-06-22] MEDS ORDERED: Communication Order-Pharmacy FS SCH (17:30)
[2019-06-22] MEDS ORDERED: Metoprolol Tartrate 25 MG TAB PO SCH (17:30)
[2019-06-22] MEDS ORDERED: Diazepam 5 MG TAB PO SCH (17:30)
[2019-06-22] MEDS ORDERED: Clopidogrel Bisulfate 300 MG TAB PO SCH (18:00)
--- NOTE | 2019-06-22 19:16 | PRG ---
DATE OF SERVICE: 06/22/2019 SUBJECTIVE: The patient is seen at bedside. Complains of mild headache. Denies any chest pain, shortness of breath, nausea, or vomiting. The patient is unable to get a cardiac cath, possibly secondary to left groin aneurysm. Denies any pain in her extremity. Complains of suicidal ideation. OBJECTIVE: VITAL SIGNS: Blood pressure 151/86, temperature 98.5, pulse 77, respiration 18, oxygen saturation 95%. GENERAL: The patient is lying in bed comfortably, not in any distress. HEENT: Conjunctivae are normal. Oral mucosa is moist. NECK: Supple. No JVD. No lymphadenopathy. CHEST: Normal vesicular breathing. HEART: Sounds normal. ABDOMEN: Soft, benign, and nontender. No visceromegaly. EXTREMITIES: Negative edema of feet. LABORATORY DATA: BMP unremarkable. Arterial ultrasound showed tiny focus of pulsatile blood flow in the soft tissue close to anterior surface of the left femoral artery, questionable for a tiny pseudoaneurysm, although the appearance is not typical. Recommended CT angiogram of the pelvis. IMPRESSION AND PLAN: 1. Suicidal ideation. The patient with a history of psychiatric disorder. As per patient, she ran out of her medication and could not get a refill. We will continue one-to-one sitter. We will get [facility] evaluation inpatient as the patient's medication adjustment may help as the patient ran out of her medications before. 2. Chest pain with abnormal EKG. Cardiology on board. Ultrasound arterial of left groin shows possible small pseudoaneurysm. We will wait Cardiology for further evaluation and intervention. 3. Central canal stenosis of L4-L5 with radiculopathy bilaterally, status post evaluation by Neurosurgery, recommended outpatient followup. 4. History of polysubstance abuse. Urine toxicology positive for tricyclics, cocaine, and cannabinoids. The patient counseled avoiding drugs. 5. Hypertension. Continue monitoring blood pressure. 6. History of asthma. Continue DuoNeb as needed. 7. History of peptic ulcer disease. Continue proton pump inhibitor. 8. Deep venous thrombosis and gastrointestinal prophylaxis. Plan discussed with the patient and nursing staff in detail. Job ID: [id number]
[2019-06-22] MEDS ORDERED: Nitroglycerin 2% Ointment 1 INCH/1 GM Packet TOP SCH (20:00)
[2019-06-22] MEDS ORDERED: Metoprolol Tartrate 50 MG TAB PO SCH (21:00)
[2019-06-22] MEDS: Nicotine 7 MG PATCH TD SCH (21:54)
[2019-06-22] MEDS: Rosuvastatin 20 MG TAB PO SCH (21:54)
[2019-06-22] MEDS: traZODone HCl 150 MG TAB PO SCH (21:54)
[2019-06-22] MEDS: Zolpidem Tartrate 5 MG TAB PO SCH (22:11)
[2019-06-23 04:12] LABS: #Eosinphils 0.2 thou/uL (0.0-0.7); #Lymphocytes 2.3 thou/uL (1.20-3.40); #Monocytes 0.7 thou/uL (0.11-0.59); #Neutrophils 4.2 thou/uL (1.40-6.50); %Basophils 0.6 % (0.0-1.0); %Eosinophils 2.2 % (0.0-10.0); %Lymphocytes 31.3 % (21.0-51.0); %Monocytes 9.4 % (0.0-10.0); %Neutrophils 56.5 % (42.0-75.0); Hemoglobin 10.6 g/dL (12.0-16.0); Mean Corpuscular HGB CONC 33.1 g/dL (32.0-36.0); Mean Corpuscular Hemoglobin 29.2 pg (27.0-31.0); Mean Corpuscular Volume 88.2 fL (78.0-98.0); Platelet Count 357 thou/uL (130-400); RBC Distribution Width 18.1 % (11.5-14.5); Red Blood Cell (RBC) Count 3.64 mill/uL (4.20-5.40); White Blood Cell (WBC) Count 7.5 thou/uL (4.8-10.8)
[2019-06-23 04:31] LABS: Anion Gap 12 mmol/L (10-20); BUN (Urea Nitrogen) 13 mg/dL (7.0-18.7); Calc. Creatinine Clearance 127 mL/min (70-130); Calcium 8.9 mg/dL (7.8-10.44); Carbon Dioxide 24 mmol/L (22-29); Chloride 106 mmol/L (98-107); Estimated GFR-MDRD 88; Glucose 127 mg/dL (70-105); Potassium 4.2 mmol/L (3.5-5.1); Sodium 138 mmol/L (136-145)
[2019-06-23] MEDS: cloNIDine 0.3 MG TAB PO SCH ×2 (06:03→21:20)
[2019-06-23] MEDS: Metoprolol Tartrate 25 MG TAB PO SCH (06:03)
[2019-06-23] MEDS: Aspirin 325 mg Enteric Coated Tablet PO SCH (06:03)
[2019-06-23] MEDS: DULoxetine 60 MG CAP PO SCH (06:03)
[2019-06-23] MEDS: Perphenazine 2 MG TAB PO SCH ×2 (06:04→21:21)
[2019-06-23] MEDS: traMADol HCl 50 MG TAB PO SCH ×4 (06:05→21:21)
[2019-06-23] MEDS: Lorazepam 0.5 MG TAB PO PRN ×4 (07:44→21:26)
[2019-06-23] MEDS: Acetaminophen 325 MG TAB PO PRN (07:44)
[2019-06-23] MEDS ORDERED: Amlodipine 5 MG TAB PO SCH ×2 (09:00→15:45)
[2019-06-23] MEDS ORDERED: Nitroglycerin 2% Ointment 1 INCH/1 GM Packet TOP SCH (09:00)
[2019-06-23] MEDS ORDERED: Clopidogrel Bisulfate 75 MG TAB PO SCH (09:00)
[2019-06-23 09:18] LABS: Hemoglobin 10.9 g/dL (12.0-16.0); Platelet Count 366 thou/uL (130-400)
[2019-06-23] MEDS ORDERED: Iopamidol 370 76% 50 ML VIAL FS ONE (09:31)
[2019-06-23] MEDS ORDERED: Iopamidol 370 76% 100 ML VIAL ONE (09:31)
--- NOTE | 2019-06-23 09:55 | ULT ---
LEFT GROIN ARTERIAL ULTRASOUND: HISTORY: Hematoma. Swelling. Evaluate for pseudoaneurysm. Status post cardiac catheterization. TECHNIQUE: Astogra-scale imaging of the left groin was performed. The vascular system is evaluated with color-flow and Doppler imaging. FINDINGS: The common femoral artery is patent. The femoral vein is patent. In the left groin there are three separate complex fluid collections measuring 0.8 x 0.5 x 0.8 cm, 2. 3 x 0.7 x 1.2 cm, 0.8 x 0.7 x 2.5 cm. No associated vascular flow with any of the complex fluid collections. There does appear to be a small focus of flow emanating from the left common femoral art trip. This small focus of flow does not have the typical appearance of a pseudoaneurysm. IMPRESSION: 1. Three separate avascular components of complex fluid in the left groin. Resolving hematomas and/or seromas are favored 2. Small focus of flow in the left groin, emanating from the common femoral artery. This region of fl ow does not have the typical appearance of pseudoaneurysm. Continued surveillance is recommended. Transcribed Date/Time: 06/23/2019 9:59 AM
[2019-06-23] MEDS ORDERED: Lidocaine 1% (PF) 30 ML VIAL ONE (10:15)
[2019-06-23] MEDS ORDERED: Heparin (Artline) 1,000 ML ONE (10:15)
[2019-06-23] MEDS ORDERED: Heparin 10,000 UNITS/1 ML VIAL ONE (10:37)
[2019-06-23] MEDS ORDERED: Nitroglycerin 100MG/250ML BOT 250 ML ONE (10:37)
[2019-06-23] MEDS ORDERED: Verapamil 5 MG/2 ML VIAL ONE (10:37)
[2019-06-23] MEDS ORDERED: Midazolam HCl 2 mg/2 ml Vial ONE (10:45)
[2019-06-23] MEDS ORDERED: Acetaminophen/Codeine 30-300mg Tablet PO PRN ×2 (11:44)
[2019-06-23] MEDS ORDERED: Sodium Chloride 0.9% 200 ML IV PRN (11:44)
[2019-06-23] MEDS ORDERED: Nitroglycerin 0.4 MG TAB (25 Tab Bottle) SL PRN (11:44)
--- NOTE | 2019-06-23 14:44 | PRG ---
DATE OF SERVICE: 06/23/2019 SUBJECTIVE: The patient is seen at bedside, says she complains of mild headache and mild chest pain. Denies any suicidal ideation today. Denies any vomiting or diarrhea. Complains of mild pain in left groin area. Clinically, not in distress. Awaiting catheterization to be performed. OBJECTIVE: VITAL SIGNS: Blood pressure 141/79, temperature 97.8, pulse 70, respirations 17, oxygen saturation 97%. GENERAL: The patient lying in bed comfortably, not in distress. HEENT: Conjunctivae normal. Oral mucosa moist. NECK: Supple. No JVD. No lymphadenopathy. CHEST: Normal vesicular breathing. HEART: Sounds normal. ABDOMEN: Soft, benign, nontender. No visceromegaly. EXTREMITIES: Negative edema in feet. LABORATORY DATA: Hemoglobin 10.9, white blood cells 7.5, platelet 366. BMP unremarkable. IMPRESSION: 1. Suicidal ideation. The patient with history of schizophrenia, bipolar disorder, and posttraumatic stress disorder. As per the patient, she ran out of her medications. However, today, she is feeling better. We will recommend [facility] evaluation once Cardiology intervention performed and no further intervention needed as per Cardio. 2. Chest pain with abnormal EKG. Cardiology on board. Left groin hematoma on the ultrasound. Pending cardiac catheterization by Cardiology. 3. Central canal stenosis of L4-L5 with radiculopathy bilaterally, status post evaluation by Neurosurgery, recommended outpatient followup. 4. History of polysubstance abuse. Urine toxicology positive for tricyclics, cocaine, and cannabinoids. The patient counseled avoiding drugs. 5. Hypertension. Continue to monitor blood pressure. 6. History of asthma. Continue DuoNeb as needed. 7. History of peptic ulcer disease. Continue PPI. 8. Deep venous thrombosis and gastrointestinal prophylaxis. PLAN: Discussed with the patient and nursing staff. We will continue a sitter in the room. Job ID: [id number]
--- NOTE | 2019-06-23 16:03 | CCL ---
DATE: 06/22/19 PROCEDURE: Left heart catheterization. The patient was brought down for cardiac catheterization. The right groin is prepped and draped in th e usual fashion. 1% Xylocaine was used for local anesthesia. The patient had a micropuncture kit used to cannulate the right femoral artery under ultrasound. The wire went up to the mid iliac and would stop and go no fu rther. This needle and wire were removed. Pressure was held. Then we went with a regular access needl e. The Wholey wire was used. It went up to the proximal iliac and would go no further. We also tried with a J-wire prior to the Wholey wire. The flow was very good but not pulsatile. It ap peared this vessel was occluded. Therefore, went to the left side. Prepped and draped and anesthetize d and using the regular access needle, access was obtained. The wire would not initially go. The need le was withdrawn, pressure was held and went again. A Wholey wire was placed. It went up to the proxi mal iliac but would go no further. A 5 Spanish sheath was then placed. Angiogram was obtained and it looked like it clearly was a chronic occlusion of the left iliac. You c ould see where the initial needle puncture had been done. There was a little bit of flow through that recent needle puncture. We decided to abandon the procedure for today. Pressure was held in both juliann ins. CONCLUSION: 1. Bilateral iliac occlusion. 2. Cardiac catheterization cancelled for today and we will bring him back tomorrow for radial ap proach.
--- NOTE | 2019-06-23 18:40 | PRG ---
DATE OF SERVICE: 06/23/2019 The patient underwent cardiac catheterization today. She is found to have normal coronaries on the left side with mild nonobstructive plaques in the right coronary. Normal left ventricular function. The studies of the left groin indicate there still may be a communication in the vessel in the left groin, this could be related to a needle stick in access site, it is not clear at this time. There does not appear to be a definite pseudoaneurysm. The patient does appear to have occlusion of both iliacs. The plan will be tomorrow to do a CT angiogram to further investigate the anatomy, may need to get a surgical consult, may try one further time on compression, if it looks like there is a small communication from the femoral artery. Job ID: [id number]
[2019-06-23] MEDS: Metoprolol Tartrate 50 MG TAB PO SCH (21:21)
[2019-06-23] MEDS: traZODone HCl 150 MG TAB PO SCH (21:21)
[2019-06-23] MEDS: Rosuvastatin 20 MG TAB PO SCH (21:21)
[2019-06-23] MEDS: Zolpidem Tartrate 5 MG TAB PO SCH (21:21)
[2019-06-23] MEDS: Nicotine 7 MG PATCH TD SCH (21:24)
[2019-06-24] MEDS: Acetaminophen/Codeine 30-300mg Tablet PO PRN (03:13)
[2019-06-24] MEDS: Lorazepam 0.5 MG TAB PO PRN ×4 (03:13→20:22)
[2019-06-24 05:00] LABS: #Eosinphils 0.2 thou/uL (0.0-0.7); #Lymphocytes 1.8 thou/uL (1.20-3.40); #Monocytes 0.6 thou/uL (0.11-0.59); #Neutrophils 4.6 thou/uL (1.40-6.50); %Basophils 0.4 % (0.0-1.0); %Eosinophils 2.5 % (0.0-10.0); %Lymphocytes 24.2 % (21.0-51.0); %Monocytes 8.8 % (0.0-10.0); %Neutrophils 64.2 % (42.0-75.0); Hemoglobin 11.4 g/dL (12.0-16.0); Mean Corpuscular HGB CONC 33.8 g/dL (32.0-36.0); Mean Corpuscular Hemoglobin 29.9 pg (27.0-31.0); Mean Corpuscular Volume 88.4 fL (78.0-98.0); Mean Platelet Volume 7.9 fL (7.4-10.4); Platelet Count 348 thou/uL (130-400); RBC Distribution Width 17.9 % (11.5-14.5); Red Blood Cell (RBC) Count 3.82 mill/uL (4.20-5.40); White Blood Cell (WBC) Count 7.2 thou/uL (4.8-10.8)
[2019-06-24 05:27] LABS: Anion Gap 12 mmol/L (10-20); BUN (Urea Nitrogen) 11 mg/dL (7.0-18.7); Calc. Creatinine Clearance 131 mL/min (70-130); Calcium 8.8 mg/dL (7.8-10.44); Carbon Dioxide 26 mmol/L (22-29); Chloride 103 mmol/L (98-107); Estimated GFR-MDRD Greater than 90; Glucose 157 mg/dL (70-105); Potassium 3.9 mmol/L (3.5-5.1); Sodium 137 mmol/L (136-145)
[2019-06-24] MEDS: NIFEdipine XL 60 MG TAB PO SCH (06:16)
[2019-06-24] MEDS: Perphenazine 2 MG TAB PO SCH ×2 (09:52→20:21)
[2019-06-24] MEDS: DULoxetine 60 MG CAP PO SCH (09:52)
[2019-06-24] MEDS: Metoprolol Tartrate 50 MG TAB PO SCH ×2 (09:52→20:21)
[2019-06-24] MEDS: cloNIDine 0.3 MG TAB PO SCH ×2 (09:53→20:21)
[2019-06-24] MEDS: traMADol HCl 50 MG TAB PO SCH ×4 (09:57→20:22)
[2019-06-24] MEDS ORDERED: Iopamidol 370 76% 100 ML VIAL ONE (11:29)
--- NOTE | 2019-06-24 11:41 | CT ---
CTA OF THE ABDOMEN, PELVIS, AND BILATERAL LOWER EXTREMITIES: HISTORY: Peripheral vascular disease. COMPARISON: None. TECHNIQUE: Multiple contiguous axial images were obtained a CTA of the abdomen, pelvis, and bilateral lower extr emities with contrast. Sagittal and coronal 3-D MIP reformats were performed. FINDINGS: Lung bases: Chronic changes. Heart: Normal caliber. Liver: Unremarkable. Gallbladder: Unremarkable. Kidneys: Unremarkable. Adrenal glands: Unremarkable. Spleen: Unremarkable. Pancreas: Unremarkable. Bowel: Limited evaluation due to lack of oral contrast. No evidence of bowel obstruction. Unremarkabl e ileocecal junction. Normal caliber appendix. Scattered fecal material in a nondistended, nondilated colon.. Reproductive organs :Unremarkable. Retroperitoneum: No lymphadenopathy. Bones: Degenerative changes in the spine. Abdominal aorta. Descending thoracic aorta and suprarenal abdominal aorta have normal caliber without evidence of dissection or aneurysmal dilatation. There is lack of contrast enhancement due to thrombosis/occlusion involving the infrarenal abdominal aorta. There are arterial collaterals via mary tebral arteries. Collaterals do opacify the left and right internal iliac arteries. The distal right external iliac arteries are opacified via collateral flow. Celiac trunk: Patent. SMA: Patent common iliac artery. GILBERT: Patent. Renal arteries: Bilateral single renal arteries without significant atherosclerotic disease. Bilateral common iliac arteries: Occluded.. Internal iliac arteries: Occlusion of the proximal right internal iliac artery. Left internal iliac a rtery is patent.. External iliac arteries: Complete occlusion of the right external iliac artery in its proximal to mid portion. There is opacification of the left external iliac artery via collateral flows at the level of the distal left. Common femoral arteries: Bilateral common femoral arteries are patent. Profunda femoral arteries: Bilateral profunda femoral arteries are patent.. Superficial femoral arteries: Bilateral superficial femoral arteries are patent. Popliteal arteries: Bilateral popliteal arteries are patent. Right lower extremity: 3 vessel runoff without significant disease. Left lower extremity: 3 vessel runoff without significant disease. IMPRESSION: 1. Occlusion of the distal abdominal aorta, extending into both common iliac arteries. There is recan alization via collateral flow from vertebral arteries. Contrast opacifies bilateral internal iliac arteries. The proximal mid right external iliac artery continues to be opacified. The distal right ex ternal iliac artery is opacified via collaterals. The left external iliac arteries opacified via collaterals at the level of the distal left common iliac artery. 2. Additional findings as above. Transcribed Date/Time: 06/24/2019 11:52 AM
--- NOTE | 2019-06-24 17:04 | PDOC.EVN ---
Event Note - Event Note Event Note: Patient seen and examined, full progress note to follow. Aortic findings noted, [facility] office closed will call for consultation in AM, if patient deteriorates or symptoms worsen please notify sound to consider stat consult for [facility].
--- NOTE | 2019-06-24 18:03 | PDOC.HOSPP ---
- Subjective Encounter Date: 06/24/19 Encounter Time: 08:00 Subjective: Chief complaint: back pain Subjective: Patient in bed, discussed recent suicidal thoughts reported in chart , patient reports those are resolved now that she has started her psychiatric medications, continues to complain of intermittent back pain, no shortness of breath/dizziness/syncope. - Objective Vital Signs & Weight: Vital Signs (12 hours) Temp Pulse Resp BP BP Pulse Ox 06/24/19 15:27 98.7 F 73 18 112/57 L 92 L 06/24/19 11:28 98.7 F 67 16 119/65 95 06/24/19 11:23 98.0 F 68 26 H 113/73 91 L 06/24/19 09:53 121/66 06/24/19 07:44 98.0 F 72 16 139/81 92 L 06/24/19 06:16 70 128/77 06/24/19 06:00 98 F 70 16 128/77 93 L Weight Admit Weight 205 lb 4.8 oz Weight 213 lb 11.2 oz I&O: 06/23/19 06/24/19 06/25/19 06:59 06:59 06:59 Intake Total 2900 1840 Output Total 3250 Balance -350 1840 Result Diagrams: 06/24/19 04:23 06/24/19 04:23 Hospitalist ROS - Medication Medications: Active Medications Generic Name Dose Route Start Last Admin Trade Name Freq PRN Reason Stop Dose Admin Acetaminophen 650 mg 06/19/19 19:17 06/23/19 07:44 Tylenol PO 650 mg Q4H PRN Administration Headache/Fever/Mild Pain (1-3) Acetaminophen/Codeine Phosphate 2 tab 06/22/19 11:15 06/24/19 03:13 Tylenol #3 PO 2 tab Q4H PRN Administration Moderate Pain (4-6) Clonidine 0.3 mg 06/19/19 21:00 06/24/19 09:53 Catapres PO 0.3 mg BID FIORDALIZA Administration Duloxetine HCl 60 mg 06/20/19 09:00 06/24/19 09:52 Cymbalta PO 60 mg DAILY FIORDALIZA Administration Hydralazine HCl 10 mg 06/20/19 11:44 06/20/19 16:32 Apresoline SLOW IVP 10 mg Q4H PRN Administration Hypertension Lorazepam 0.5 mg 06/20/19 15:43 06/24/19 15:32 Ativan PO 0.5 mg Q4H PRN Administration Anxiety Metoprolol Tartrate 50 mg 06/23/19 21:00 06/24/19 09:52 Lopressor PO 50 mg BID FIORDALIZA Administration Nicotine 7 mg 06/20/19 22:15 06/23/19 21:24 Nicoderm Patch TD 7 mg Q24HR FIORDALIZA Administration Nifedipine 60 mg 06/24/19 06:00 06/24/19 06:16 Procardia Xl PO 60 mg 0600 FIORDALIZA Administration Pantoprazole Sodium 40 mg 06/21/19 09:00 06/24/19 09:52 Protonix PO 40 mg DAILY FIORDALIZA Administration Perphenazine 1 mg 06/21/19 09:00 06/24/19 09:52 Trilafon PO 1 mg BID FIORDALIZA Administration Quetiapine Fumarate 800 mg 06/19/19 21:00 06/23/19 21:23 Seroquel PO 800 mg QPM FIORDALIZA Administration Rosuvastatin Calcium 20 mg 06/20/19 21:00 06/23/19 21:21 Crestor PO 20 mg HS FIORDALIZA Administration Sodium Chloride 10 ml 06/20/19 21:00 06/24/19 09:59 Flush - Normal Saline IVF 10 ml Q12HR FIORDALIZA Administration Tramadol HCl 50 mg 06/20/19 17:00 06/24/19 16:32 Ultram PO 50 mg QID FIORDALIZA Administration Trazodone HCl 150 mg 06/19/19 21:00 06/23/19 21:21 Desyrel PO 150 mg HS FIORDALIZA Administration Zolpidem Tartrate 10 mg 06/19/19 21:00 06/23/19 21:21 Ambien PO 10 mg HS FIORDALIZA Administration - Exam General Appearance: NAD, awake alert Eye: PERRL, anicteric sclera ENT: normocephalic atraumatic, moist mucosa Neck: supple, no JVD Heart: RRR, no murmur, no gallops, no rubs Respiratory: CTAB, no wheezes, no rales, no ronchi Gastrointestinal: soft, non-tender, non-distended, normal bowel sounds Gastrointestinal - other findings: denies suicidal ideations at this time Extremities: no cyanosis, no clubbing, no edema Skin: no lesions, no rashes Neurological: cranial nerve grossly intact, normal sensation to touch, no weakness, no focal deficits Musculoskeletal: normal tone, normal strength Musculoskeletal - other findings: no TTP on back Psychiatric: normal affect, A&O x 3 Hosp A/P - Plan Patient is a 48 year old female being treated for: # back pain likely secondary to aortic occlusion - CTA of aorta reveals occluded distal aorta, extending into both iliacs, collateral flow acheived from vertebral arteries, this likely explains symptoms, consult placed for [facility] in AM, call for stat consult if new or changing symptoms - appreciate catheterization and evaluation by Dr Phan, nonobstructive CAD found but also revealed signs of abnormal aorta leading to CTA mentioned above # suicidal ideation - patient reports improvement in this, and she states getting her meds (was out) has resolved this. still, must have evaluation by [facility] before coming off of suicide precautions, once above issues resolved will get a psychiatric/MR evaluation # borderline hypoxia - sats in low 90s, history of asthma and aortic disease, CXR if lowers further # schizophrenia - reports drastic improvement on medications, continue current medication regimen and MR consultation once medically stable # chest pain - likely related to back pain and aortic pathology above, treat as above # HTN - on norvasc, clonidine, nifedipine, lopressor with cardiology managing # central canal stenosis of L4/L5 with bilateral radiculopathy, evaluated by neurosurgery with plan for outpatient followup # history of polysubstance abuse - urine toxicology positives for tricyclics, MR eval before d/c, nicotine patch # history of asthma - continue PRN nebs # history of PUD - continue PPI # DVT/GI ppx
[2019-06-24] MEDS: Rosuvastatin 20 MG TAB PO SCH (20:21)
[2019-06-24] MEDS: traZODone HCl 150 MG TAB PO SCH (20:21)
[2019-06-24] MEDS: Zolpidem Tartrate 5 MG TAB PO SCH (20:21)
[2019-06-24] MEDS: Nicotine 7 MG PATCH TD SCH (20:24)
--- NOTE | 2019-06-25 00:14 | CON ---
DATE OF CONSULTATION: HISTORY OF PRESENT ILLNESS: This is a 48-year-old schizophrenic patient admitted with chest pain and a slight troponin leak. She underwent attempted cardiac catheterization through both femoral arteries by Dr. Phan without success and then yesterday underwent a radial artery catheterization by Dr. Finley, showing minimal right coronary disease. Cardiovascular risk factors include hypertension and smoking history. ADDITIONAL PAST MEDICAL HISTORY: As noted above include schizophrenia. SOCIAL HISTORY: She smokes half pack of cigarettes a day. Lives with her nieces in [place]. She did have a positive drug screen for cocaine and marijuana, and admits to drug usage. PAST SURGICAL HISTORY: Negative. MEDICATIONS: Listed in the record. REVIEW OF SYSTEMS: The patient admits to bilateral thigh discomfort when walking up 1-2 blocks, which has been present for the past 2 to 3 years. She has no nocturnal rest pain. On examination, she is alert, cooperative, overweight lady at 210 pounds. Height 5 feet 7 inches. NECK: No carotid bruits. LUNGS: Clear to auscultation. CARDIAC: Soft aortic flow murmur. ABDOMEN: Obese, nontender. Panniculus hanging over her groins. She has no palpable femoral pulses. She is slightly tender to palpation in both groins with no ecchymosis, no masses, and no bruits. She has no pedal pulses to palpation but does have Doppler signal in her right PT, left PT, left DP with the left being better than the right. A CT angiogram shows distal aortic occlusion with reconstitution of the distal right external iliac artery and the proximal left external iliac artery and mild profunda stenosis on the left. She has some calcification involving her distal aorta and large lumbar collaterals. PLAN: At this time, the patient presents with chronic aortic occlusion lifestyle, limiting claudication. We would recommend aspirin a day as well as smoking cessation, and I have discussed this with her and I will follow her up next year to see if her symptoms have worsened and see if she has had any success in lifestyle modification. Job ID: [id number]
[2019-06-25] MEDS: Acetaminophen/Codeine 30-300mg Tablet PO PRN (04:06)
[2019-06-25] MEDS: Lorazepam 0.5 MG TAB PO PRN ×3 (04:06→13:22)
[2019-06-25] MEDS: NIFEdipine XL 60 MG TAB PO SCH (06:07)
[2019-06-25] MEDS: DULoxetine 60 MG CAP PO SCH (08:45)
[2019-06-25] MEDS: Metoprolol Tartrate 50 MG TAB PO SCH (08:45)
[2019-06-25] MEDS: Perphenazine 2 MG TAB PO SCH (08:45)
[2019-06-25] MEDS: traMADol HCl 50 MG TAB PO SCH ×2 (08:45→13:22)
[2019-06-25] MEDS: cloNIDine 0.3 MG TAB PO SCH (08:47)
[2019-06-25 12:02] VITALS: BP 128/66; TEMP 97.9
--- NOTE | 2019-06-25 12:05 | ULT ---
Ultrasound Doppler duplex arterial left groin DATE: 06/25/2019 HISTORY: Follow-up abnormality on prior study. Post cardiac catheter changes in left groin. COMPARISON: Previous Doppler ultrasound of 06/22/[address] angiogram of 06/24/2019 TECHNIQUE: Grayscale, color-flow, and spectral analysis of left groin. FINDINGS: Again demonstrated is a tiny focus of blood flow located in the soft tissues a short distance anterio r to the left common femoral artery. The CT angiogram demonstrated. There is no pseudoaneurysm in this location, and therefore this is a small branch blood vessel. The CTA showed a very small focal o utpouching of the posterior aspect of the left common femoral artery that is not visible on this Doppler ultrasound. It may or may not be related to cardiac catheterization. What was thought to be s mall thin elongated fluid collections in the anterior soft tissues, was shown by the CTA to represent mildly enlarged lymph nodes, instead. There has been no significant interval change overall since 06/22/2019. IMPRESSION: 1. There is no pseudoaneurysm anterior to the common femoral artery. 2. No hematoma. 3. Several enlarged lymph nodes at left groin. 4. No interval change.
--- NOTE | 2019-06-25 13:55 | PRG ---
DATE OF SERVICE: 06/25/2019 SUBJECTIVE: Ms. Camarillo is doing well. No complaints. No chest pain. OBJECTIVE: VITAL SIGNS: Her blood pressure is markedly improved 128/66, pulse 68 and regular. LUNGS: Clear. CARDIAC: Normal S1, normal S2. ABDOMEN: Soft, nontender. ASSESSMENT: 1. Severe hypertension, improved. This is a longstanding problem as evidenced by the left ventricular hypertrophy on echo. 2. Mild nonobstructive coronary artery disease. 3. Hypercholesterolemia. 4. Occluded aorta with collateral flow to the iliacs. 5. Peripheral vascular disease, best treated medically, but if she has intractable claudication, aorta bi-iliac could be considered, but that should be treated medically first. 6. Smoking cessation. 7. She is on psychiatric medicines. PLAN: 1. Continue current medical regimen. She is on metoprolol 50 mg twice a day and nifedipine (Procardia XL) 60 mg a day. 2. She is on clonidine 0.3 mg twice a day. 3. Multiple psychiatric medicines. 4. Crestor 20 mg a day. 5. Aspirin 81 mg a day. 6. The patient had a reimaging of the left leg. There is no evidence of pseudoaneurysm. The area of concern previously was a small blood vessel. There are no abnormalities. Job ID: [id number]
[2019-06-25 14:20] VITALS: BMI 32.5
--- NOTE | 2019-06-28 12:29 | EKG ---
Test Reason : Blood Pressure : / mmHG Vent. Rate : 071 BPM Atrial Rate : 071 BPM P-R Int : 146 ms QRS Dur : 092 ms QT Int : 438 ms P-R-T Axes : 066 -04 -76 degrees QTc Int : 475 ms Normal sinus rhythm Prolonged QT Abnormal ECG When compared with ECG of 20-JUN-2019 08:19, No significant change was found Confirmed by GUICHO INFANTE (2) on 06/28/2019 12:28:34 PM Referred By: SUKHI Confirmed By:GUICHO INFANTE
== END 2019-06-25 16:20 | disposition home or self-care (01) | DRG 281 ==
LOC: ERS 14:54 → 2NO 20:10
PROVIDERS: ADMIT Internal Medicine; ATTEND Internal Medicine
PROC: 4A023N7 Measurement of Cardiac Sampling and Pressure, Left Heart, Percutaneous Approach (ICD-10-PCS; 2019-06-19)
PROC: B2111ZZ Fluoroscopy of Multiple Coronary Arteries using Low Osmolar Contrast (ICD-10-PCS; 2019-06-19)
PROC: B2151ZZ Fluoroscopy of Left Heart using Low Osmolar Contrast (ICD-10-PCS; 2019-06-19)
PROC: 04JY3ZZ Inspection of Lower Artery, Percutaneous Approach (ICD-10-PCS; principal; 2019-06-22)
DX: I70.0 Atherosclerosis of aorta (principal); I21.A1 Myocardial infarction type 2; R45.851 Suicidal ideations; I51.81 Takotsubo syndrome; I74.5 Embolism and thrombosis of iliac artery; F20.9 Schizophrenia, unspecified; I10 Essential (primary) hypertension; F19.10 Other psychoactive substance abuse, uncomplicated; I16.0 Hypertensive urgency; J45.909 Unspecified asthma, uncomplicated; I25.10 Atherosclerotic heart disease of native coronary artery without angina pectoris; M54.10 Radiculopathy, site unspecified; K27.9 Peptic ulcer, site unspecified, unspecified as acute or chronic, without hemorrhage or perforation; F43.10 Post-traumatic stress disorder, unspecified; E78.00 Pure hypercholesterolemia, unspecified; I73.9 Peripheral vascular disease, unspecified; Z71.6 Tobacco abuse counseling; M48.061 Spinal stenosis, lumbar region without neurogenic claudication; E87.6 Hypokalemia; R09.02 Hypoxemia
CPT/HCPCS: 36140; 36415; 71045; 72131; 74176; 75635; 76882; 76942; 80048; 80053; 80061; 80306; 80307; 81003; 81015; 81025; 82553; 82565; 83690; 83735; 84484; 85014; 85018; 85025; 85049; 90471; 90686; 90732; 93005; 93010; 93306; 93458; 93926; 94760; 96374; 96375; 99152; 99153; C1769; G0008; G0009; J0360; J1644; J1650; J1885; J2001; J2060; J2250; J3010; J3475; Q0175; Q9967

== ENCOUNTER 2019-06-26 08:46 | Emergency (ER) | payer MEDICARE, MEDICAID ==
[2019-06-26] MEDS ORDERED: Aspirin Chewable 81 MG TAB ONE (09:26)
[2019-06-26] MEDS ORDERED: Nitroglycerin 0.4 MG TAB 1 EACH ONE (09:26)
[2019-06-26 09:43] LABS: #Eosinphils 0.1 thou/uL (0.0-0.7); #Lymphocytes 2.1 thou/uL (1.20-3.40); #Monocytes 1.1 thou/uL (0.11-0.59); #Neutrophils 13.2 thou/uL (1.40-6.50); %Basophils 0.1 % (0.0-1.0); %Eosinophils 0.6 % (0.0-10.0); %Lymphocytes 12.8 % (21.0-51.0); %Monocytes 6.6 % (0.0-10.0); BHCG - Serum Negative (NEGATIVE); Hemoglobin 12.9 g/dL (12.0-16.0); Mean Corpuscular HGB CONC 34.6 g/dL (32.0-36.0); Mean Corpuscular Hemoglobin 30.1 pg (27.0-31.0); Mean Corpuscular Volume 86.9 fL (78.0-98.0); Mean Platelet Volume 7.8 fL (7.4-10.4); Platelet Count 417 thou/uL (130-400); Pregs Control Background? CLEAR/WHITE (CLR/WHITE); Pregs Control Bar Appear? YES (CONTROL BAR); RBC Distribution Width 17.9 % (11.5-14.5); Red Blood Cell (RBC) Count 4.29 mill/uL (4.20-5.40); White Blood Cell (WBC) Count 16.5 thou/uL (4.8-10.8)
[2019-06-26 09:49] LABS: Bacteria/HPF None Seen HPF (None Seen); Bilirubin Negative (Negative); Blood, Urine Negative (Negative); Clarity Clear (Clear); Glucose, Urine (Dipstick) Normal (Negative); Leukocyte 250 Leu/uL (Negative); Nitrite Negative (Negative); Protein, Urine (Dipstick) Negative (Neg-Trace); RBC/HPF 0-3 HPF (0-3); Squamous Epithelial 0-3 HPF (0-3); Urobilinogen Normal mg/dL (Less than 2)
[2019-06-26 09:50] LABS: ALT (SGPT) 34 U/L (8-55); AST (SGOT) 21 U/L (5-34); Albumin 4.4 g/dL (3.5-5.0); Alkaline Phosphatase 84 U/L (40-110); Anion Gap 10 mmol/L (10-20); BUN (Urea Nitrogen) 9 mg/dL (7.0-18.7); Bilirubin, Total 0.4 mg/dL (0.2-1.2); Calc. Creatinine Clearance 0 mL/min (70-130); Carbon Dioxide 28 mmol/L (22-29); Chloride 101 mmol/L (98-107); Estimated GFR-MDRD 89; Globulin 3.7 g/dL (2.4-3.5); Glucose 124 mg/dL (70-105); Lipase 4 U/L (8-78); Potassium 4.2 mmol/L (3.5-5.1); Protein, Total 8.1 g/dL (6.0-8.3); Sodium 135 mmol/L (136-145)
--- NOTE | 2019-06-26 10:07 | RAD ---
AP VIEW CHEST: Date: 06/26/19 INDICATION: History of chest pain. COMPARISON: None. FINDINGS/IMPRESSION: Lungs are clear. Heart size normal. No acute osseous abnormality is evident. POS: OFF
[2019-06-26 10:11] LABS: CKMB 1.4 ng/mL (0-6.6)
[2019-06-26 12:49] LABS: Troponin I 0.073 ng/mL (< 0.028)
== END 2019-06-26 13:22 | disposition home or self-care (01) ==
LOC: ERS 08:46
DX: R07.9 Chest pain, unspecified (principal); J45.909 Unspecified asthma, uncomplicated; I10 Essential (primary) hypertension; F20.9 Schizophrenia, unspecified; F43.10 Post-traumatic stress disorder, unspecified; F17.210 Nicotine dependence, cigarettes, uncomplicated; Z79.899 Other long term (current) drug therapy; Z79.891 Long term (current) use of opiate analgesic
CPT/HCPCS: 36415; 71045; 80053; 81003; 81015; 82553; 83690; 84484; 84703; 85025; 93005

== ENCOUNTER 2019-08-09 11:06 | Emergency (ER) | payer MEDICARE, MEDICAID ==
[2019-08-09 11:44] LABS: #Basophils 0.1 thou/uL (0.0-0.2); #Eosinphils 0.1 thou/uL (0.0-0.7); #Lymphocytes 2.7 thou/uL (1.20-3.40); #Monocytes 0.8 thou/uL (0.11-0.59); #Neutrophils 6.3 thou/uL (1.40-6.50); %Basophils 0.9 % (0.0-1.0); %Eosinophils 1.2 % (0.0-10.0); %Lymphocytes 27.1 % (21.0-51.0); %Monocytes 8.4 % (0.0-10.0); %Neutrophils 62.4 % (42.0-75.0); Mean Corpuscular Hemoglobin 28.7 pg (27.0-31.0); Mean Corpuscular Volume 86.8 fL (78.0-98.0); Mean Platelet Volume 7.7 fL (7.4-10.4); Platelet Count 430 thou/uL (130-400); RBC Distribution Width 18.6 % (11.5-14.5); Red Blood Cell (RBC) Count 4.52 mill/uL (4.20-5.40); White Blood Cell (WBC) Count 10.1 thou/uL (4.8-10.8)
[2019-08-09 12:05] LABS: Bilirubin Negative (Negative); Blood, Urine Negative (Negative); Clarity Clear (Clear); Glucose, Urine (Dipstick) Normal (Negative); Leukocyte Negative Leu/uL (Negative); Nitrite Negative (Negative); Protein, Urine (Dipstick) Negative (Neg-Trace); Urobilinogen Normal mg/dL (Less than 2)
[2019-08-09 12:06] LABS: Acetaminophen Less than 6.0 mcg/mL (10.0-30.0); Alcohol Less than 10 mg/dL (Less than 10); Salicylate Less than 8.0 mg/dL (15.0-30.0)
[2019-08-09] MEDS ORDERED: cloNIDine 0.1 MG TAB ONE ×2 (12:06→17:30)
[2019-08-09] MEDS ORDERED: diphenhydrAMINE 25 MG CAP ONE (12:06)
[2019-08-09 12:07] LABS: ALT (SGPT) 10 U/L (8-55); AST (SGOT) 15 U/L (5-34); Albumin 4.1 g/dL (3.5-5.0); Alkaline Phosphatase 84 U/L (40-110); Anion Gap 16 mmol/L (10-20); BUN (Urea Nitrogen) 11 mg/dL (7.0-18.7); Bilirubin, Total 0.2 mg/dL (0.2-1.2); CK (CPK) 200 U/L (29-168); Calc. Creatinine Clearance 0 mL/min (70-130); Calcium 9.3 mg/dL (7.8-10.44); Carbon Dioxide 20 mmol/L (22-29); Chloride 107 mmol/L (98-107); Estimated GFR-MDRD 62; Globulin 3.5 g/dL (2.4-3.5); Glucose 97 mg/dL (70-105); Potassium 3.9 mmol/L (3.5-5.1); Protein, Total 7.6 g/dL (6.0-8.3); Sodium 139 mmol/L (136-145)
[2019-08-09 12:07] LABS: Pregnancy Test - Urine (BHCG) Negative (Negative); Pregu Control Background? CLEAR/WHITE (CLR/WHITE); Pregu Control Bar Appear? YES (CONTROL BAR); Specific Gravity 1.009 (1.002-1.036)
[2019-08-09 12:18] LABS: Amphetamine Not Detected (NotDetected); Barbiturates Screen Not Detected (NotDetected); Benzodiazepine Screen Not Detected (NotDetected); Cocaine Metabolite Screen Detected (NotDetected); Medtox Control Line Valid? VALID (VALID); Medtox Reader # READER 4; Methadone Not Detected (NotDetected); Methamphetamine Not Detected (NotDetected); Opiate Screen Not Detected (NotDetected); Oxycodone Screen Not Detected (NotDetected); Phencyclidine (PCP) Not Detected (NotDetected); THC/Cannabinoid Screen Not Detected (NotDetected); Tricyclic Screen Not Detected (NotDetected)
[2019-08-09] MEDS ORDERED: hydrALAZINE 20 MG/ML VIAL ONE (13:05)
[2019-08-09] MEDS ORDERED: hydrOXYzine Pamoate 25 mg Capsule ONE (13:42)
== END 2019-08-10 00:05 ==
LOC: ERS 11:06
DX: R45.851 Suicidal ideations (principal); I10 Essential (primary) hypertension; J45.909 Unspecified asthma, uncomplicated; F20.9 Schizophrenia, unspecified; F43.10 Post-traumatic stress disorder, unspecified; F41.9 Anxiety disorder, unspecified; F31.9 Bipolar disorder, unspecified; F17.210 Nicotine dependence, cigarettes, uncomplicated; Z79.899 Other long term (current) drug therapy; Z91.19 Patient's noncompliance with other medical treatment and regimen; Z79.891 Long term (current) use of opiate analgesic; Z79.82 Long term (current) use of aspirin
CPT/HCPCS: 36415; 80053; 80306; 80307; 81003; 81025; 82550; 84443; 85025; 96374; J0360; Q0163; Q0177

== ENCOUNTER 2019-08-26 03:25 | Emergency (ER) | payer MEDICARE, MEDICAID ==
[2019-08-26] MEDS ORDERED: Famotidine/PF 20 mg/2ml Vial ONE (03:37)
[2019-08-26] MEDS ORDERED: methylPREDNISolone Sod Succ/PF 125 MG/2 ML VIAL ONE (03:37)
[2019-08-26] MEDS ORDERED: cloNIDine 0.1 MG TAB ONE (05:23)
== END 2019-08-26 05:31 | disposition home or self-care (01) ==
LOC: ERS 03:25
DX: K14.8 Other diseases of tongue (principal); T46.4X5A Adverse effect of angiotensin-converting-enzyme inhibitors, initial encounter; J45.909 Unspecified asthma, uncomplicated; F20.9 Schizophrenia, unspecified; F43.10 Post-traumatic stress disorder, unspecified; F17.210 Nicotine dependence, cigarettes, uncomplicated; Z79.899 Other long term (current) drug therapy; Z79.891 Long term (current) use of opiate analgesic; Z79.82 Long term (current) use of aspirin
CPT/HCPCS: 96374; 96375; J2930; S0028

== ENCOUNTER 2019-08-31 09:24 | Emergency (ER) | payer MEDICARE, MEDICAID ==
[2019-08-31 09:47] LABS: Bilirubin Negative (Negative); Blood, Urine Negative (Negative); Glucose, Urine (Dipstick) Negative (Negative); Leukocyte Negative (Negative); Nitrite Negative (Negative); Protein, Urine (Dipstick) Negative (Neg-Trace); Urobilinogen 0.2 mg/dL (Less than 2)
[2019-08-31 09:50] LABS: Pregnancy Test - Urine (BHCG) Negative (Negative); Pregu Control Background? CLEAR/WHITE (CLR/WHITE); Pregu Control Bar Appear? YES (CONTROL BAR); Specific Gravity 1.015 (1.002-1.036)
[2019-08-31 09:52] LABS: Clarity Clear (Clear)
[2019-08-31 10:02] LABS: Bacteria/HPF Rare-Few HPF (None Seen); RBC/HPF 0-3 HPF (0-3); Sperm/HPF Rare HPF (None Seen); WBC/HPF 0-3 HPF (0-3)
[2019-08-31 10:05] LABS: Medtox Reader # READER 4; THC/Cannabinoid Screen Detected (NotDetected)
[2019-08-31 10:06] LABS: Amphetamine Not Detected (NotDetected); Barbiturates Screen Not Detected (NotDetected); Benzodiazepine Screen Not Detected (NotDetected); Cocaine Metabolite Screen Detected (NotDetected); Medtox Control Line Valid? VALID (VALID); Methadone Not Detected (NotDetected); Methamphetamine Not Detected (NotDetected); Opiate Screen Not Detected (NotDetected); Oxycodone Screen Not Detected (NotDetected); Phencyclidine (PCP) Not Detected (NotDetected); Tricyclic Screen Detected (NotDetected)
[2019-08-31 10:43] LABS: Mean Corpuscular HGB CONC 32.9 g/dL (32.0-36.0); Mean Corpuscular Hemoglobin 28.4 pg (27.0-31.0); Mean Corpuscular Volume 86.5 fL (78.0-98.0); Platelet Count 443 thou/uL (130-400); RBC Distribution Width 19.2 % (11.5-14.5); Red Blood Cell (RBC) Count 4.24 mill/uL (4.20-5.40); White Blood Cell (WBC) Count 7.1 thou/uL (4.8-10.8)
[2019-08-31 10:44] LABS: #Eosinphils 0.2 thou/uL (0.0-0.7); #Lymphocytes 2.5 thou/uL (1.20-3.40); #Monocytes 0.5 thou/uL (0.11-0.59); #Neutrophils 3.8 thou/uL (1.40-6.50); %Basophils 0.6 % (0.0-1.0); %Eosinophils 3.1 % (0.0-10.0); %Lymphocytes 35.3 % (21.0-51.0); %Monocytes 7.1 % (0.0-10.0)
[2019-08-31 11:06] LABS: Acetaminophen Less than 6.0 mcg/mL (10.0-30.0); Alcohol Less than 10 mg/dL (Less than 10); Salicylate Less than 8.0 mg/dL (15.0-30.0)
[2019-08-31 11:07] LABS: ALT (SGPT) 9 U/L (8-55); AST (SGOT) 8 U/L (5-34); Albumin 3.7 g/dL (3.5-5.0); Alkaline Phosphatase 75 U/L (40-110); Anion Gap 11 mmol/L (10-20); BUN (Urea Nitrogen) 11 mg/dL (7.0-18.7); Bilirubin, Total Less than 0.2 mg/dL (0.2-1.2); CK (CPK) 80 U/L (29-168); Calc. Creatinine Clearance 0 mL/min (70-130); Calcium 9.1 mg/dL (7.8-10.44); Carbon Dioxide 25 mmol/L (22-29); Chloride 105 mmol/L (98-107); Estimated GFR-MDRD 84; Globulin 2.9 g/dL (2.4-3.5); Glucose 135 mg/dL (70-105); Potassium 4.1 mmol/L (3.5-5.1); Protein, Total 6.6 g/dL (6.0-8.3); Sodium 137 mmol/L (136-145)
[2019-08-31 11:17] LABS: MDiff Complete? YES; Platelet Morphology Comment Appears Increased; Polychromasia SLIGHT = 2-3 cells (100X) (0-2/hpf)
== END 2019-08-31 19:31 ==
LOC: ERS 09:24
DX: F31.9 Bipolar disorder, unspecified (principal); K21.9 Gastro-esophageal reflux disease without esophagitis; I10 Essential (primary) hypertension; F41.9 Anxiety disorder, unspecified; F20.9 Schizophrenia, unspecified; F43.10 Post-traumatic stress disorder, unspecified; F17.210 Nicotine dependence, cigarettes, uncomplicated; Z79.899 Other long term (current) drug therapy
CPT/HCPCS: 36415; 80053; 80306; 80307; 81003; 81025; 82550; 84443; 85025

== ENCOUNTER 2019-11-16 10:07 | Emergency (ER) | payer MEDICAID, MEDICARE ==
[2019-11-16] MEDS ORDERED: Amlodipine 5 MG TAB ONE (10:40)
[2019-11-16 10:48] LABS: Bacteria/HPF None Seen HPF (None Seen); Bilirubin Negative (Negative); Blood, Urine Negative (Negative); Clarity Clear (Clear); Glucose, Urine (Dipstick) Normal (Negative); Leukocyte Negative Leu/uL (Negative); Nitrite Negative (Negative); Protein, Urine (Dipstick) 30 mg/dL (Neg-Trace); RBC/HPF 0-3 HPF (0-3); Squamous Epithelial 0-3 HPF (0-3); Urobilinogen Normal mg/dL (Less than 2); WBC/HPF 0-3 HPF (0-3)
[2019-11-16 10:49] LABS: Pregnancy Test - Urine (BHCG) Negative (Negative); Pregu Control Background? CLEAR/WHITE (CLR/WHITE); Pregu Control Bar Appear? YES (CONTROL BAR); Specific Gravity 1.019 (1.002-1.036)
[2019-11-16 10:58] LABS: Amphetamine Not Detected (NotDetected); Barbiturates Screen Not Detected (NotDetected); Benzodiazepine Screen Detected (NotDetected); Cocaine Metabolite Screen Detected (NotDetected); Medtox Control Line Valid? VALID (VALID); Medtox Reader # READER 4; Methadone Not Detected (NotDetected); Methamphetamine Not Detected (NotDetected); Opiate Screen Not Detected (NotDetected); Oxycodone Screen Not Detected (NotDetected); Phencyclidine (PCP) Not Detected (NotDetected); THC/Cannabinoid Screen Detected (NotDetected); Tricyclic Screen Not Detected (NotDetected)
[2019-11-16 11:31] LABS: #Eosinphils 0.1 thou/uL (0.0-0.7); #Lymphocytes 3.1 thou/uL (1.20-3.40); #Monocytes 0.8 thou/uL (0.11-0.59); #Neutrophils 5.4 thou/uL (1.40-6.50); %Basophils 0.3 % (0.0-1.0); %Eosinophils 1.1 % (0.0-10.0); %Lymphocytes 32.6 % (21.0-51.0); %Monocytes 8.8 % (0.0-10.0); %Neutrophils 57.2 % (42.0-75.0); Hemoglobin 13.2 g/dL (12.0-16.0); Mean Corpuscular HGB CONC 33.1 g/dL (32.0-36.0); Mean Corpuscular Hemoglobin 28.5 pg (27.0-31.0); Mean Corpuscular Volume 86.3 fL (78.0-98.0); Mean Platelet Volume 8.5 fL (7.4-10.4); Platelet Count 325 thou/uL (130-400); RBC Distribution Width 20.5 % (11.5-14.5); Red Blood Cell (RBC) Count 4.62 mill/uL (4.20-5.40); White Blood Cell (WBC) Count 9.5 thou/uL (4.8-10.8)
[2019-11-16] MEDS ORDERED: Ondansetron ODT 4 MG TAB ONE (11:34)
[2019-11-16] MEDS ORDERED: Acetaminophen 500 MG TAB ONE (11:34)
[2019-11-16 11:39] LABS: ALT (SGPT) 10 U/L (8-55); AST (SGOT) 12 U/L (5-34); Albumin 4.2 g/dL (3.5-5.0); Alkaline Phosphatase 74 U/L (40-110); Anion Gap 12 mmol/L (10-20); BUN (Urea Nitrogen) 7 mg/dL (7.0-18.7); Bilirubin, Total 0.4 mg/dL (0.2-1.2); Calc. Creatinine Clearance 0 mL/min (70-130); Calcium 8.9 mg/dL (7.8-10.44); Carbon Dioxide 23 mmol/L (22-29); Chloride 105 mmol/L (98-107); Estimated GFR-MDRD 90; Globulin 3.5 g/dL (2.4-3.5); Glucose 113 mg/dL (70-105); Potassium 3.7 mmol/L (3.5-5.1); Protein, Total 7.7 g/dL (6.0-8.3); Sodium 136 mmol/L (136-145)
[2019-11-16 11:41] LABS: Acetaminophen Less than 6.0 mcg/mL (10.0-30.0); Alcohol Less than 10 mg/dL (Less than 10); Salicylate Less than 8.0 mg/dL (15.0-30.0)
[2019-11-16] MEDS ORDERED: Metoclopramide HCl 10 MG/2 ML VIAL ONE (13:42)
[2019-11-16] MEDS ORDERED: hydrOXYzine 25 MG TAB ONE (15:28)
[2019-11-16] MEDS ORDERED: hydrOXYzine Pamoate 25 mg Capsule ONE (15:28)
== END 2019-11-16 21:47 ==
LOC: ERS 10:07
DX: R45.850 Homicidal ideations (principal); R45.851 Suicidal ideations; I10 Essential (primary) hypertension; R51 Headache; K21.9 Gastro-esophageal reflux disease without esophagitis; F31.9 Bipolar disorder, unspecified; F41.9 Anxiety disorder, unspecified; F20.9 Schizophrenia, unspecified; F17.210 Nicotine dependence, cigarettes, uncomplicated
CPT/HCPCS: 80306; 80307; 81025; 84484; 93005; J2765; Q0162; 36415; 80053; 81003; 81015; 84443; 85025; 96365; Q0177

== ENCOUNTER 2020-01-06 08:49 | Emergency (ER) | payer MEDICARE ==
[2020-01-06] MEDS ORDERED: Metoclopramide 10 MG/10 ML UDCUP ONE (09:08)
[2020-01-06] MEDS ORDERED: Metoclopramide HCl 10 MG/2 ML VIAL ONE (09:08)
[2020-01-06] MEDS ORDERED: diphenhydrAMINE 50 MG/ML VIAL ONE (09:16)
--- NOTE | 2020-01-06 09:37 | CT ---
CT BRAIN WITHOUT CONTRAST: Date: 01/06/2020 HISTORY: Headache. COMPARISON: 07/30/2018. FINDINGS: No evidence of acute infarct, hemorrhage, midline shift, or abnormal extra-axial fluid collections ar e seen. The bony calvarium is intact. The visualized paranasal sinuses and mastoid air cells are well aerated. IMPRESSION: No CT evidence of acute intracranial process. POS: AH
[2020-01-06 09:39] LABS: #Basophils 0.1 thou/uL (0.0-0.2); #Eosinphils 0.1 thou/uL (0.0-0.7); #Lymphocytes 3.1 thou/uL (1.20-3.40); #Monocytes 1.2 thou/uL (0.11-0.59); #Neutrophils 11.6 thou/uL (1.40-6.50); %Basophils 0.5 % (0.0-1.0); %Eosinophils 0.3 % (0.0-10.0); %Lymphocytes 19.4 % (21.0-51.0); %Monocytes 7.4 % (0.0-10.0); %Neutrophils 72.4 % (42.0-75.0); Hemoglobin 13.7 g/dL (12.0-16.0); Mean Corpuscular HGB CONC 34.1 g/dL (32.0-36.0); Mean Corpuscular Hemoglobin 29.9 pg (27.0-31.0); Mean Corpuscular Volume 87.6 fL (78.0-98.0); Mean Platelet Volume 7.6 fL (7.4-10.4); Platelet Count 367 thou/uL (130-400); RBC Distribution Width 19.4 % (11.5-14.5)
[2020-01-06 09:42] LABS: Prothrombin Time 12.9 sec (12.0-14.7)
[2020-01-06 09:43] LABS: PTT 30.9 sec (22.9-36.1)
[2020-01-06 09:59] LABS: ALT (SGPT) 9 U/L (8-55); AST (SGOT) 12 U/L (5-34); Albumin 4.3 g/dL (3.5-5.0); Alkaline Phosphatase 86 U/L (40-110); Anion Gap 13 mmol/L (10-20); BUN (Urea Nitrogen) 7 mg/dL (7.0-18.7); Bilirubin, Total 0.4 mg/dL (0.2-1.2); Calc. Creatinine Clearance 0 mL/min (70-130); Calcium 9.2 mg/dL (7.8-10.44); Carbon Dioxide 21 mmol/L (22-29); Chloride 104 mmol/L (98-107); Estimated GFR-MDRD 89; Globulin 3.7 g/dL (2.4-3.5); Glucose 126 mg/dL (70-105); Potassium 3.3 mmol/L (3.5-5.1); Sodium 135 mmol/L (136-145)
[2020-01-06] MEDS ORDERED: Ketorolac Tromethamine 30 MG/ML VIAL ONE (10:29)
== END 2020-01-06 12:37 | disposition home or self-care (01) ==
LOC: ERS 08:49
DX: G43.909 Migraine, unspecified, not intractable, without status migrainosus (principal); K21.9 Gastro-esophageal reflux disease without esophagitis; I10 Essential (primary) hypertension; F41.9 Anxiety disorder, unspecified; F20.9 Schizophrenia, unspecified; F43.10 Post-traumatic stress disorder, unspecified; F17.210 Nicotine dependence, cigarettes, uncomplicated; Z79.899 Other long term (current) drug therapy
CPT/HCPCS: 36415; 70450; 80053; 85025; 85610; 85730; 96365; 96375; J1200; J1885; J2765

== ENCOUNTER 2020-01-12 11:00 | Emergency (ER) | payer MEDICARE ==
[2020-01-12 11:57] LABS: #Basophils 0.1 thou/uL (0.0-0.2); #Eosinphils 0.2 thou/uL (0.0-0.7); #Monocytes 0.7 thou/uL (0.11-0.59); #Neutrophils 4.4 thou/uL (1.40-6.50); %Basophils 1.1 % (0.0-1.0); %Eosinophils 2.2 % (0.0-10.0); %Lymphocytes 35.9 % (21.0-51.0); %Monocytes 8.5 % (0.0-10.0); %Neutrophils 52.4 % (42.0-75.0); Hemoglobin 12.9 g/dL (12.0-16.0); Mean Corpuscular HGB CONC 32.9 g/dL (32.0-36.0); Mean Corpuscular Hemoglobin 28.7 pg (27.0-31.0); Mean Corpuscular Volume 87.2 fL (78.0-98.0); Mean Platelet Volume 7.7 fL (7.4-10.4); Platelet Count 394 thou/uL (130-400); RBC Distribution Width 18.4 % (11.5-14.5); Red Blood Cell (RBC) Count 4.52 mill/uL (4.20-5.40); White Blood Cell (WBC) Count 8.4 thou/uL (4.8-10.8)
[2020-01-12] MEDS ORDERED: Acetaminophen 500 MG TAB ONE (12:12)
[2020-01-12] MEDS ORDERED: Lorazepam 1 MG TAB ONE (12:13)
[2020-01-12 12:26] LABS: Acetaminophen Less than 6.0 mcg/mL (10.0-30.0); Alcohol Less than 10 mg/dL (Less than 10); Salicylate Less than 8.0 mg/dL (15.0-30.0)
[2020-01-12 12:27] LABS: ALT (SGPT) 13 U/L (8-55); AST (SGOT) 15 U/L (5-34); Albumin 3.7 g/dL (3.5-5.0); Alcohol Less than 10 mg/dL (Less than 10); Alkaline Phosphatase 83 U/L (40-110); Anion Gap 14 mmol/L (10-20); BUN (Urea Nitrogen) 8 mg/dL (7.0-18.7); Bilirubin, Total Less than 0.2 mg/dL (0.2-1.2); CK (CPK) 114 U/L (29-168); Calc. Creatinine Clearance 0 mL/min (70-130); Calcium 8.7 mg/dL (7.8-10.44); Carbon Dioxide 23 mmol/L (22-29); Chloride 106 mmol/L (98-107); Estimated GFR-MDRD 85; Globulin 3.3 g/dL (2.4-3.5); Glucose 195 mg/dL (70-105); Potassium 3.9 mmol/L (3.5-5.1); Sodium 139 mmol/L (136-145)
[2020-01-12 13:54] LABS: Bacteria/HPF None Seen HPF (None Seen); Bilirubin Negative (Negative); Blood, Urine Negative (Negative); Clarity Clear (Clear); Glucose, Urine (Dipstick) Normal (Negative); Leukocyte 75 Leu/uL (Negative); Nitrite Negative (Negative); Protein, Urine (Dipstick) 10 mg/dL (Neg-Trace); RBC/HPF 0-3 HPF (0-3); Squamous Epithelial 0-3 HPF (0-3); Urobilinogen Normal mg/dL (Less than 2)
[2020-01-12 13:56] LABS: Pregnancy Test - Urine (BHCG) Negative (Negative); Pregu Control Background? CLEAR/WHITE (CLR/WHITE); Pregu Control Bar Appear? YES (CONTROL BAR)
[2020-01-12 14:00] LABS: Cocaine Metabolite Screen Detected (NotDetected); Medtox Reader # READER 1; Methamphetamine Not Detected (NotDetected); Phencyclidine (PCP) Not Detected (NotDetected); THC/Cannabinoid Screen Not Detected (NotDetected)
[2020-01-12 14:01] LABS: Amphetamine Not Detected (NotDetected); Barbiturates Screen Not Detected (NotDetected); Benzodiazepine Screen Not Detected (NotDetected); Medtox Control Line Valid? VALID (VALID); Methadone Not Detected (NotDetected); Opiate Screen Not Detected (NotDetected); Oxycodone Screen Not Detected (NotDetected); Tricyclic Screen Detected (NotDetected)
[2020-01-12] MEDS ORDERED: cloNIDine 0.1 MG TAB ONE ×2 (17:25→18:37)
[2020-01-12] MEDS ORDERED: traZODone HCl 50 MG TAB PO SCH (21:00)
[2020-01-12] MEDS ORDERED: Zolpidem Tartrate 5 MG TAB PO SCH (21:00)
[2020-01-12] MEDS ORDERED: Perphenazine 2 MG TAB PO SCH (21:00)
[2020-01-13] MEDS ORDERED: Acetaminophen 325 MG TAB ONE (07:39)
[2020-01-13] MEDS ORDERED: hydrOXYzine 25 MG TAB ONE (07:43)
[2020-01-13] MEDS ORDERED: cloNIDine 0.1 MG TAB ONE (08:18)
[2020-01-13] MEDS ORDERED: DULoxetine 60 MG CAP PO SCH (09:00)
[2020-01-13] MEDS ORDERED: Nicotine 14 MG PATCH TOP SCH (09:00)
[2020-01-13] MEDS ORDERED: Nicotine 14 MG PATCH ONE (09:13)
== END 2020-01-13 09:39 ==
LOC: ERS 11:00
DX: R45.851 Suicidal ideations (principal); F19.10 Other psychoactive substance abuse, uncomplicated; K21.9 Gastro-esophageal reflux disease without esophagitis; I10 Essential (primary) hypertension; F31.9 Bipolar disorder, unspecified; F41.9 Anxiety disorder, unspecified; F20.9 Schizophrenia, unspecified; F43.10 Post-traumatic stress disorder, unspecified; F17.210 Nicotine dependence, cigarettes, uncomplicated; Z79.899 Other long term (current) drug therapy
CPT/HCPCS: 36415; 80053; 80306; 80307; 81003; 81015; 81025; 82550; 84443; 85025; 93005; Q0175

== ENCOUNTER 2020-02-01 09:26 | Emergency (ER) | payer MEDICARE ==
--- NOTE | 2020-02-01 10:19 | CT ---
EXAM: CT brain without contrast HISTORY: Headache and blurry vision COMPARISON: 01/06/2020 TECHNIQUE: Multiple contiguous axial images were obtained and a CT of the brain without contrast. FINDINGS: The brain is normal in morphology and attenuation without focal lesions or confluent areas of infarction. There is no evidence of hydrocephalus, intracranial hemorrhage, or extra-axial fluid collection. The calvarium and overlying soft tissues are unremarkable. The visualized paranasal sinuses and masto id air cells are well aerated. IMPRESSION: No evidence of acute intracranial abnormality
[2020-02-01] MEDS ORDERED: Acetaminophen 500 MG TAB ONE (10:32)
[2020-02-01] MEDS ORDERED: diphenhydrAMINE 50 MG/ML VIAL ONE (10:57)
[2020-02-01] MEDS ORDERED: Ketorolac Tromethamine 30 MG/ML VIAL ONE (10:57)
[2020-02-01] MEDS ORDERED: Ketamine 50 MG/ML (10ML VIAL) ONE (11:07)
[2020-02-01 11:10] LABS: #Eosinphils 0.1 thou/uL (0.0-0.7); #Lymphocytes 2.6 thou/uL (1.20-3.40); #Monocytes 0.5 thou/uL (0.11-0.59); %Basophils 0.5 % (0.0-1.0); %Eosinophils 1.1 % (0.0-10.0); %Lymphocytes 36.3 % (21.0-51.0); %Monocytes 6.8 % (0.0-10.0); %Neutrophils 55.3 % (42.0-75.0); Hemoglobin 12.7 g/dL (12.0-16.0); Mean Corpuscular Hemoglobin 28.7 pg (27.0-31.0); Mean Corpuscular Volume 87.1 fL (78.0-98.0); Mean Platelet Volume 7.7 fL (7.4-10.4); Platelet Count 470 thou/uL (130-400); Red Blood Cell (RBC) Count 4.41 mill/uL (4.20-5.40); White Blood Cell (WBC) Count 7.2 thou/uL (4.8-10.8)
[2020-02-01 11:31] LABS: ALT (SGPT) 12 U/L (8-55); AST (SGOT) 14 U/L (5-34); Albumin 4.1 g/dL (3.5-5.0); Alkaline Phosphatase 64 U/L (40-110); Anion Gap 13 mmol/L (10-20); BUN (Urea Nitrogen) 8 mg/dL (7.0-18.7); Bilirubin, Total 0.3 mg/dL (0.2-1.2); Calc. Creatinine Clearance 0 mL/min (70-130); Calcium 9.1 mg/dL (7.8-10.44); Carbon Dioxide 22 mmol/L (22-29); Chloride 108 mmol/L (98-107); Estimated GFR-MDRD 79; Globulin 3.4 g/dL (2.4-3.5); Glucose 112 mg/dL (70-105); Potassium 3.1 mmol/L (3.5-5.1); Protein, Total 7.5 g/dL (6.0-8.3); Sodium 140 mmol/L (136-145)
[2020-02-01] MEDS ORDERED: Ondansetron PF 4 MG/2 ML Vial ONE (11:43)
[2020-02-01] MEDS ORDERED: cloNIDine 0.1 MG TAB ONE (11:43)
[2020-02-01] MEDS ORDERED: Morphine 4 MG/ML VIAL ONE (11:43)
== END 2020-02-01 14:16 | disposition home or self-care (01) ==
LOC: ERS 09:26
DX: I16.1 Hypertensive emergency (principal); I10 Essential (primary) hypertension; G43.909 Migraine, unspecified, not intractable, without status migrainosus; K21.9 Gastro-esophageal reflux disease without esophagitis; F17.210 Nicotine dependence, cigarettes, uncomplicated; Z79.899 Other long term (current) drug therapy
CPT/HCPCS: 36415; 70450; 80053; 84484; 85025; 93005; 96361; 96365; 96375; J1200; J1885; J2270; J2405

== ENCOUNTER 2020-05-23 03:58 | Emergency (ER) | payer MEDICARE, MEDICAID ==
[2020-05-23] MEDS ORDERED: cloNIDine 0.1 MG TAB ONE ×2 (04:22)
== END 2020-05-23 05:15 | disposition home or self-care (01) ==
LOC: ERS 03:58
DX: J45.901 Unspecified asthma with (acute) exacerbation (principal); F14.23 Cocaine dependence with withdrawal; I10 Essential (primary) hypertension; K21.9 Gastro-esophageal reflux disease without esophagitis; F20.9 Schizophrenia, unspecified; F41.9 Anxiety disorder, unspecified; F31.9 Bipolar disorder, unspecified; F43.10 Post-traumatic stress disorder, unspecified; F17.210 Nicotine dependence, cigarettes, uncomplicated
CPT/HCPCS: 99284

== ENCOUNTER 2020-06-01 10:28 | Emergency (ER) | payer MEDICARE, MEDICAID ==
--- NOTE | 2020-06-01 11:23 | RAD ---
CHEST 1 VIEW: Date; 06/01/2020 HISTORY: Bronchitis. COMPARISON: Radiograph dated 06/26/2019. FINDINGS: Heart size mildly enlarged. Pulmonary arteries distended. Abnormal opacities throughout the lungs. No pneumothorax. IMPRESSION: Mild cardiomegaly with edema and trace effusions can be seen with volume overload/congestive heart fa ilure. Findings are less likely atypical viral infectious process, although possible. Follow-up recom mended. POS: [facility]
[2020-06-01 11:38] LABS: #Eosinphils 0.3 thou/uL (0.0-0.7); #Lymphocytes 2.8 thou/uL (1.20-3.40); #Monocytes 0.8 thou/uL (0.11-0.59); #Neutrophils 7.7 thou/uL (1.40-6.50); %Basophils 0.1 % (0.0-1.0); %Eosinophils 2.7 % (0.0-10.0); %Lymphocytes 24.2 % (21.0-51.0); %Monocytes 6.5 % (0.0-10.0); %Neutrophils 66.5 % (42.0-75.0); Hemoglobin 11.9 g/dL (12.0-16.0); Mean Corpuscular Hemoglobin 27.8 pg (27.0-31.0); Mean Platelet Volume 6.9 fL (7.4-10.4); Platelet Count 546 thou/uL (130-400); RBC Distribution Width 17.8 % (11.5-14.5); Red Blood Cell (RBC) Count 4.29 mill/uL (4.20-5.40); White Blood Cell (WBC) Count 11.6 thou/uL (4.8-10.8)
[2020-06-01 11:54] LABS: Chloride 107 mmol/L (98-107); Potassium 4.3 mmol/L (3.5-5.1); Sodium 134 mmol/L (136-145)
[2020-06-01 11:55] LABS: ALT (SGPT) 17 U/L (8-55); AST (SGOT) 13 U/L (5-34); Albumin 3.1 g/dL (3.5-5.0); Alkaline Phosphatase 79 U/L (40-110); Anion Gap 10 mmol/L (10-20); BUN (Urea Nitrogen) 7 mg/dL (7.0-18.7); Bilirubin, Total Less than 0.2 mg/dL (0.2-1.2); Calc. Creatinine Clearance 0 mL/min (70-130); Carbon Dioxide 21 mmol/L (22-29); Estimated GFR-MDRD 82; Globulin 3.4 g/dL (2.4-3.5); Glucose 122 mg/dL (70-105); Protein, Total 6.5 g/dL (6.0-8.3)
[2020-06-01] MEDS ORDERED: Dexamethasone 10 MG/ML VIAL ONE (13:25)
[2020-06-01] MEDS ORDERED: Ketorolac Tromethamine 30 MG/ML VIAL ONE (13:25)
== END 2020-06-01 14:21 | disposition home or self-care (01) ==
LOC: ERS 10:28
DX: J06.9 Acute upper respiratory infection, unspecified (principal); I10 Essential (primary) hypertension; K21.9 Gastro-esophageal reflux disease without esophagitis; F32.9 Major depressive disorder, single episode, unspecified; F20.9 Schizophrenia, unspecified; F17.210 Nicotine dependence, cigarettes, uncomplicated; Z79.899 Other long term (current) drug therapy
CPT/HCPCS: 36415; 71045; 80053; 83880; 85025; 87804; 93005; 96374; 96375; J1100; J1885

== ENCOUNTER 2020-06-12 06:14 | Inpatient (IN) | payer MEDICARE, MEDICAID ==
[2020-06-12 07:04] LABS: #Basophils 0.1 thou/uL (0.0-0.2); #Eosinphils 0.2 thou/uL (0.0-0.7); #Lymphocytes 2.4 thou/uL (1.20-3.40); #Monocytes 0.8 thou/uL (0.11-0.59); #Neutrophils 5.1 thou/uL (1.40-6.50); %Basophils 0.6 % (0.0-1.0); %Eosinophils 2.1 % (0.0-10.0); %Lymphocytes 27.9 % (21.0-51.0); %Monocytes 9.3 % (0.0-10.0); Hemoglobin 11.2 g/dL (12.0-16.0); Mean Corpuscular HGB CONC 33.6 g/dL (32.0-36.0); Mean Corpuscular Hemoglobin 28.3 pg (27.0-31.0); Mean Corpuscular Volume 84.1 fL (78.0-98.0); Platelet Count 418 thou/uL (130-400); RBC Distribution Width 17.7 % (11.5-14.5); Red Blood Cell (RBC) Count 3.96 mill/uL (4.20-5.40); White Blood Cell (WBC) Count 8.5 thou/uL (4.8-10.8)
[2020-06-12 07:10] LABS: ALT (SGPT) 17 U/L (8-55); AST (SGOT) 17 U/L (5-34); Albumin 3.2 g/dL (3.5-5.0); Alkaline Phosphatase 81 U/L (40-110); Anion Gap 12 mmol/L (10-20); BUN (Urea Nitrogen) 6 mg/dL (7.0-18.7); Bilirubin, Total 0.3 mg/dL (0.2-1.2); Calc. Creatinine Clearance 0 mL/min (70-130); Calcium 8.4 mg/dL (7.8-10.44); Carbon Dioxide 25 mmol/L (22-29); Chloride 105 mmol/L (98-107); Estimated GFR-MDRD 86; Globulin 3.8 g/dL (2.4-3.5); Glucose 134 mg/dL (70-105); Potassium 3.7 mmol/L (3.5-5.1); Sodium 138 mmol/L (136-145)
[2020-06-12 07:15] LABS: BHCG - Serum Negative (NEGATIVE); Pregs Control Background? CLEAR/WHITE (CLR/WHITE); Pregs Control Bar Appear? YES (CONTROL BAR)
[2020-06-12 07:32] LABS: CKMB 1.9 ng/mL (0-6.6)
--- NOTE | 2020-06-12 08:05 | RAD ---
RADIOGRAPH CHEST 1 VIEW: DATE: 06/12/2020 TIME: 6:32 AM HISTORY: 49-year-old female with abdominal pain COMPARISON: 06/01/2020 FINDINGS: Again noted is the cardiomegaly. Again noted are predominantly interstitial infiltrates throughout th e mid and lower lung zones. These appear minimally improved since prior study, although it is possible that the apparent difference could be due to technical differences. No new consolidation. No pneumothorax. IMPRESSION: 1) cardiomegaly 2) pulmonary opacities, predominantly interstitial.
[2020-06-12] MEDS ORDERED: diphenhydrAMINE 50 MG/ML VIAL ONE (08:59)
[2020-06-12] MEDS ORDERED: Aspirin Chewable 81 MG TAB ONE (08:59)
[2020-06-12] MEDS ORDERED: Mag-Al 1200 mg/1200 mg/30 ML UDCUP ONE (09:00)
[2020-06-12] MEDS ORDERED: Lidocaine Viscous Sol 2% 15 ml UD Cup ONE (09:00)
--- NOTE | 2020-06-12 09:12 | CT ---
PRELIMINARY REPORT/DIRECT RADIOLOGY/EMERGENCY AFTER HOURS PROCEDURE: EXAM: CT Abdomen and Pelvis with Intravenous Contrast CLINICAL HISTORY: PT STATES SHE WAS HAVING ABD PAIN, N/V. HX ECTOPIC WITH SX, tubal ligatio n TECHNIQUE: Axial computed tomography images of the abdomen and pelvis with intravenous contrast. CONTRAST: With; ISOVUE 370,100mL COMPARISON: None provided. FINDINGS: LUNG BASES: Small right greater than left pleural effusions. LIVER: Unremarkable. GALLBLADDER AND BILE DUCTS: No periappendiceal inflammatory changes to suggest acute cholecystitis. PANCREAS: Unremarkable. SPLEEN: Unremarkable. ADRENAL GLANDS: Unremarkable. KIDNEYS, URETERS, AND BLADDER: Unremarkable. No hydronephrosis or nephrolithiasis. No ureteral or brandon dder calculi. STOMACH AND BOWEL: No obstruction. No wall thickening. No CT evidence of colitis or acute diverticuli tis. APPENDIX: No CT evidence for appendicitis. PERITONEUM: No free fluid. No free air. LYMPH NODES: No lymphadenopathy. REPRODUCTIVE: Unremarkable as visualized. VASCULATURE: Scattered calcifications of the distal aorta with extensive plaque occluding the distal aorta 1.7 cm above the rose. There is occlusion of the common iliac artery with reconstitution of the internal and external iliac arteries. There is occlusion of the right common and external iliac a rtery with reconstitution of the internal iliac artery and right common femoral artery. BONES: Degenerative changes most prominent at L5/S1. ABDOMINAL WALL AND SOFT TISSUES: Unremarkable. IMPRESSION: Aortoiliac occlusive disease with occlusion of the distal aorta bilateral common iliac a rteries. Reconstitution of the left internal and external iliac arteries and reconstitution of the right internal iliac artery and right common femoral arteries. Small right greater than left pleural effusions. ELECTRONICALLY SIGNED BY: Shanice Gonzalez MD Jun 12, 2020 7:12:44 AM OXYGEN EQUIPMENT AIDE FINAL REPORT EXAM: ABDOMEN AND PELVIC CT SCAN WITH CONTRAST: Emergency after exam 6:55 AM, 06/12/2020. This is a final report. Evidence for total occlusion of the distal abdominal aorta and bifurcation and proximal right and lef t iliac arteries. No evidence for other significant acute process. This report agrees with the preliminary report. Transcribed Date/Time: 06/12/2020 9:27 AM
[2020-06-12] MEDS ORDERED: Lorazepam 2 MG/ML VIAL ONE (09:31)
[2020-06-12] MEDS ORDERED: Iopamidol-370 76% 500 ML 1 ML ONE (09:45)
--- NOTE | 2020-06-12 09:47 | PDOC.HHP ---
Hospitalist HPI - History of Present Illness Shortness of breath History of Present Illness: This is a 49-year-old female patient with a history of GERD, hypertension, bronchitis who presents early this morning with worsening shortness of breath 4 weeks duration. She was last discharged on 06/2019 after being managed for back pain and suicidal ideation. It was noted that she also had borderline hypoxemia. At the time a urine drug screen was positive for tricyclic, cocaine and cannabis. Given concerns for coronary occlusion she had a stress test which showed minimal coronary disease. Her last echo on 06/2019 showed EF 55 to 60% with severe concentric left ventricular hypertrophy. At the time of my evaluation patient was in bed drowsy she had received some sedating medication per EMS and on initial presentation. Although she was drowsy she notes that she has been having worsening shortness of breath for the past couple of weeks. She did complain of shortness of breath and orthopnea and paroxysmal nocturnal dyspnea. She denied any associated chest pain diarrhea constipation. As presented blood pressure was elevated with systolic above 200, she had 1 inch Nitropaste and 10 mg IV labetalol use Zofran and 100 mcg fentanyl. [id number], oxygen saturation 191 on room air. Pulse was 77. Labs showed hemoglobin of 11.2, platelets 418, sodium BUN/creatinine within normal limits. Troponin was 0.035 and BNP was 485 from 139 on 06/01/2020. Chest x-ray showed cardiomegaly and pulmonary opacities mainly interstitial. She had a CTA due to complaints of abdominal pain which revealed evidence for total occlusion of the distal abdominal aorta and bifurcation and proximal right and left iliac arteries. This was consistent with previous findings. No acute process was noted. Echocardiogram a year ago noted EF of 55 to 60% with moderate to severe concentric left ventricular hypertrophy. Hospitalist ROS - Review of Systems Constitutional: denies: fever, chills Respiratory: reports: cough, dry, shortness of breath, SOB with excertion. denies: hemoptysis Gastrointestinal: denies: nausea, vomiting, abdominal pain, diarrhea, constipation Neurological: denies: weakness, numbness, incoordination Hospitalist History - Past Medical History Cardiac: reports: CHF, HTN Other Medical History: Psychotic disorder, suicidal ideation - Family History Family History: reports: no pertinent history - Social History Drugs: reports: cocaine, marijuana Other Social History: History of alcohol cocaine and cannabis she is - Exam General Appearance: awake alert General - other findings: Generally fidgety, intermittently restless Eye: anicteric sclera ENT: normocephalic atraumatic, no oropharyngeal lesions Heart: RRR, no murmur, no gallops Respiratory - other findings: Reduced air entry bilaterally. Occasional wheezing. Extremities: no cyanosis, no clubbing, no edema Neurological: cranial nerve grossly intact, no weakness Psychiatric: A&O x 3 Psychiatric - other findings: Agitated and hypersomnolent. Hospitalist Results - Labs Result Diagrams: 06/12/20 06:33 06/12/20 06:33 Lab results: WBC 8.5 thou/uL (4.8-10.8) 06/12/20 06:33 Hgb 11.2 g/dL (12.0-16.0) L 06/12/20 06:33 Hct 33.3 % (36.0-47.0) L 06/12/20 06:33 MCV 84.1 fL (78.0-98.0) 06/12/20 06:33 Plt Count 418 thou/uL (130-400) H 06/12/20 06:33 Neutrophils % 60.0 % (42.0-75.0) 06/12/20 06:33 Sodium 138 mmol/L (136-145) 06/12/20 06:33 Potassium 3.7 mmol/L (3.5-5.1) 06/12/20 06:33 Chloride 105 mmol/L (98-107) 06/12/20 06:33 Carbon Dioxide 25 mmol/L (22-29) 06/12/20 06:33 BUN 6 mg/dL (7.0-18.7) L 06/12/20 06:33 Creatinine 0.85 mg/dL (0.6-1.1) 06/12/20 06:33 Glucose 134 mg/dL (70-105) H 06/12/20 06:33 Calcium 8.4 mg/dL (7.8-10.44) 06/12/20 06:33 Total Bilirubin 0.3 mg/dL (0.2-1.2) 06/12/20 06:33 AST 17 U/L (5-34) 06/12/20 06:33 ALT 17 U/L (8-55) 06/12/20 06:33 Alkaline Phosphatase 81 U/L (40-110) 06/12/20 06:33 CK-MB (CK-2) 1.9 ng/mL (0-6.6) 06/12/20 06:33 Troponin I 0.035 ng/mL (< 0.028) H 06/12/20 06:33 B-Natriuretic Peptide 485.6 pg/mL (0-100) H 06/12/20 06:33 Serum Total Protein 7.0 g/dL (6.0-8.3) 06/12/20 06:33 Albumin 3.2 g/dL (3.5-5.0) L 06/12/20 06:33 Hospitalist H&P A/P - Plan Plan: This is a 49-year-old female patient with a history of diastolic dysfunction, polysubstance abuse, psychotic disorder who presents today with worsening shortness of breath. Acute heart failure exacerbation BNP was 485.6 EF about a year ago was 55-60 with severe concentric hypertrophy of the left ventricle Chest x-ray suggestive of interstitial infiltration likely edema We will start diuresis on Lasix Repeat echo Fluid input and output monitoring Electrolyte monitoring. Consult cardiology if EF is reduced. Acute hypoxic respiratory failure. Has heart failure exacerbation, possible COPD exacerbation, interstitial pneumonia Intermittent periods of hypoxia when sleeping This may be DUSTY ABG shows PCO2 at 52 We will order BiPAP and repeat ABG Oxygen as needed Breathing treatments, steroids, antibiotic Covid swab taken Pulmonology consult in a.m. History of polysubstance abuse We will order urine drug screen. Hypertensive urgency Begin home blood pressure medication As needed labetalol/hydralazine Close blood pressure monitoring. Type II NSTEMI Initial troponin 0 0.035 Cardiac cath about a year ago was almost normal We will trend troponins and monitor. Also check for cocaine amphetamine use. Mild normocytic anemia Repeat cbc in a.m. Severe peripheral vascular disease This is chronic previously evaluated She is supposed to be followed by Dr. Delarosa CODE STATUSfull code [place] prophylaxisLovenox
[2020-06-12] MEDS ORDERED: Furosemide 40 MG/4 ML VIAL SLOW IVP SCH ×2 (10:00→10:15)
[2020-06-12] MEDS ORDERED: Naloxone HCl 2 MG in Sodium Chloride 0.9% 500 ML IV SCH ×2 (10:00→10:15)
[2020-06-12] MEDS ORDERED: Labetalol HCl 100 MG/20 ML VIAL SLOW IVP PRN (10:03)
[2020-06-12] MEDS ORDERED: hydrALAZINE 20 MG/ML VIAL SLOW IVP PRN (10:04)
[2020-06-12] MEDS ORDERED: Furosemide 40 MG/4 ML VIAL ONE (10:04)
[2020-06-12] MEDS ORDERED: Naloxone HCl 2 mg/2 ml Syringe ONE (10:04)
[2020-06-12 10:05] LABS: Troponin I 0.023 ng/mL (< 0.028)
[2020-06-12 11:56] LABS: Actual Bicarbonate (HCO3a) 30.5 mEq/L (22-28); Analyzer IN Cardio ER; Base Excess (BEa) 4.2 mEq/L (-2.0 to +3.0); CO2 Tension 53.4 mmHg (35.0-45.0); Calcium, Ionized (arterial) 1.13 mmol/L (1.12-1.30); Carboxyhemoglobin (COHb) 4.1 gm% (0.0-3.0); Hemoglobin (Hb) 12.1 g/dL (12.0-16.0); O2 Tension (PaO2), arterial 92.5 mmHg (80.0-100.0); Potassium - ABG Lab 3.25 mmol/L (3.70-5.30); pH, Arterial 7.37 (7.35-7.45)
[2020-06-12 11:59] LABS: Puncture Site LB
[2020-06-12] MEDS ORDERED: Azithromycin 500 MG in Sodium Chloride 0.9% 250 ML 250 ML IVPB SCH ×2 (12:00→16:00)
[2020-06-12 13:12] LABS: Troponin I 0.038 ng/mL (< 0.028)
[2020-06-12 14:44] VITALS: BMI 30.2
[2020-06-12] MEDS ORDERED: Lorazepam 2 MG/ML VIAL SLOW IVP PRN (15:39)
[2020-06-12] MEDS ORDERED: cefTRIAXone\\ROCEPHIN 1 GM in Sodium Chloride 0.9% 100 ML IVPB SCH (16:00)
[2020-06-12] MEDS: methylPREDNISolone Sod Succ 40 MG VIAL IVP SCH (16:01)
[2020-06-12] MEDS: cloNIDine 0.3 MG TAB PO SCH (18:34)
[2020-06-12 18:51] LABS: Cocaine Metabolite Screen Detected (NotDetected); Medtox Reader # READER 4
[2020-06-12 18:52] LABS: Amphetamine Not Detected (NotDetected); Barbiturates Screen Not Detected (NotDetected); Benzodiazepine Screen Not Detected (NotDetected); Medtox Control Line Valid? VALID (VALID); Methadone Not Detected (NotDetected); Methamphetamine Not Detected (NotDetected); Opiate Screen Not Detected (NotDetected); Oxycodone Screen Not Detected (NotDetected); Phencyclidine (PCP) Not Detected (NotDetected); THC/Cannabinoid Screen Not Detected (NotDetected); Tricyclic Screen Not Detected (NotDetected)
[2020-06-12 19:36] LABS: SARS-CoV-2 MS2 Positive; SARS-CoV-2 N Gene Negative; SARS-CoV-2 S Gene Negative; SARS-CoV-2 by NAA Not Detected (NotDetected); SARS-CoV-2 orf1ab Negative
[2020-06-12] MEDS: traZODone HCl 50 MG TAB PO SCH (20:28)
[2020-06-12] MEDS: Perphenazine 2 MG TAB PO SCH (20:30)
[2020-06-12] MEDS: Zolpidem Tartrate 5 MG TAB PO SCH (20:32)
[2020-06-12] MEDS: OLANZapine 5 MG TAB PO SCH (20:32)
[2020-06-12] MEDS: hydrOXYzine 25 MG TAB PO SCH (20:33)
[2020-06-12] MEDS ORDERED: cloNIDine 0.3 MG TAB PO SCH (21:00)
[2020-06-13] MEDS ORDERED: NIFEdipine XL 60 MG TAB PO SCH ×2 (06:00→16:00)
[2020-06-13] MEDS: Pantoprazole 40 MG VIAL IVP SCH (08:59)
[2020-06-13] MEDS: Furosemide 40 MG/4 ML VIAL SLOW IVP SCH (08:59)
[2020-06-13] MEDS: cloNIDine 0.3 MG TAB PO SCH ×2 (08:59→22:33)
[2020-06-13] MEDS: Perphenazine 2 MG TAB PO SCH ×2 (08:59→22:32)
[2020-06-13] MEDS: Amlodipine 10 MG TAB PO SCH (08:59)
[2020-06-13] MEDS: Acetaminophen/Codeine 30-300mg Tablet PO PRN ×3 (09:00→22:34)
[2020-06-13] MEDS ORDERED: Amlodipine 5 MG TAB PO SCH (09:00)
[2020-06-13] MEDS: Polyethylene Glycol 3350 17 GM Packet PO PRN ×2 (09:17→22:35)
--- NOTE | 2020-06-13 10:32 | CON ---
DATE OF CONSULTATION: 06/13/2020 CONSULTING PHYSICIAN: Hospitalist. REASON FOR CONSULTATION: Shortness of breath. HISTORY OF PRESENT ILLNESS: The patient is a 49-year-old black female, who presented to the hospital with a one month history of increasing shortness of breath. She says her shortness of breath is worse when she is flat. She apparently has a known history of diastolic heart failure with severe left ventricular hypertrophy by an echo. She also abuses crack cocaine and smokes cigarettes. Also noted she presented with grossly elevated blood pressure. PAST MEDICAL HISTORY: 1. Diastolic heart failure. 2. Hypertension. 3. Drug use. PAST PSYCHIATRIC HISTORY: Notable for suicide attempt. SOCIAL HISTORY: Smokes half pack per day. Uses crack cocaine daily. Smokes marijuana daily. Denies alcohol use. MEDICATIONS: Prior to admission; 1. . 2. Senokot. 3. Olanzapine. 4. Norvasc. 5. Perphenazine. 6. Ambien. 7. Cymbalta. 8. Catapres. 9. Protonix. 10. Lopressor. 11. Seroquel. 12. Trazodone. 13. Tylenol No. 3. REVIEW OF SYSTEMS: Remarkable for orthopnea and PND, cough, congestion. Denies any COVID exposure. PHYSICAL EXAMINATION: VITAL SIGNS: Temperature 97.7, pulse 92, respirations 18, O2 saturation 97% on room air, blood pressure 169/91. HEENT: Unremarkable. NECK: No adenopathy or JVD. CARDIAC: S1 and S2 regular with fourth heart sound. She has scattered crackles anteriorly. She is fairly clear posteriorly. ABDOMEN: Soft and nontender. EXTREMITIES: No clubbing or cyanosis. Trace edema. LABORATORY DATA: Drug test positive for cocaine. White blood cell count 8.5, hematocrit 33.3, and platelet count 418. Sodium 137, potassium 3.7, chloride 105, CO2 of 25, BUN 6, creatinine 0.8, glucose 134. BNP 485. Chest x-ray demonstrates cardiomegaly with bilateral pulmonary edema. ASSESSMENT: 1. Diastolic congestive heart failure. 2. Crack cocaine use. 3. Hypoxemia with mild hypercapnia, indicating she may have some underlying chronic obstructive pulmonary disease or overlap syndrome. RECOMMENDATION: 1. I would first recommend treating her heart failure with diuretics, blood pressure control. 2. I have told her she needs to stop smoking crack cocaine as that could be affecting her lungs. 3. I agree with nebulization treatments. I would not give her steroids for very long. I think her main issues are probably cardiac related. Job ID: [id number]
[2020-06-13] MEDS: methylPREDNISolone Sod Succ 40 MG VIAL IVP SCH (12:45)
--- NOTE | 2020-06-13 14:59 | PDOC.HOSPP ---
- Subjective Subjective: breathing is better. denies of chest pain. echo pending - Objective Vital Signs & Weight: Vital Signs (12 hours) Temp Pulse Resp BP BP Pulse Ox 06/13/20 12:00 97.5 F L 79 16 137/74 92 L 06/13/20 10:11 86 14 95 06/13/20 09:00 96 06/13/20 08:52 98.6 F 96 16 190/109 H 96 06/13/20 04:00 97.7 F 92 18 169/91 H 97 Weight Weight 197 lb 6.4 oz I&O: 06/12/20 06/13/20 06/14/20 06:59 06:59 06:59 Intake Total 700 Output Total 200 Balance 500 Result Diagrams: 06/12/20 06:33 06/12/20 06:33 Additional Labs: Accuchecks 06/12/20 20:22 POC Glucose 119 H Radiology Reviewed by me: Yes EKG Reviewed by me: Yes Hospitalist ROS - Medication Medications: Active Medications Generic Name Dose Route Start Last Admin Trade Name Freq PRN Reason Stop Dose Admin Acetaminophen/Codeine Phosphate 1 tab 06/12/20 15:01 06/13/20 12:55 Acetaminophen/Codeine 30-300mg Tablet PO 1 tab Q4H PRN Administration Moderate Pain (4-6) Albuterol/Ipratropium 3 ml 06/12/20 10:30 06/13/20 13:52 Ipratropium/Albuterol Sulfate 3 Ml Neb NEB Not Given [id number] FIORDALIZA Amlodipine Besylate 10 mg 06/13/20 09:00 06/13/20 08:59 Amlodipine 10 Mg Tab PO 10 mg DAILY FIORDALIZA Administration Clonidine 0.3 mg 06/12/20 21:00 06/13/20 08:59 Clonidine 0.3 Mg Tab PO 0.3 mg BID FIORDALIZA Administration Furosemide 40 mg 06/13/20 09:00 06/13/20 08:59 Furosemide 40 Mg/4 Ml Vial SLOW IVP 40 mg DAILY FIORDALIZA Administration Hydroxyzine HCl 100 mg 06/12/20 21:00 06/12/20 20:33 Hydroxyzine 25 Mg Tab PO 100 mg HS FIORDALIZA Administration Ceftriaxone Sodium 1 gm/ 100 mls @ 200 mls/hr 06/12/20 16:00 06/12/20 16:30 Sodium Chloride IVPB 100 mls Q24HR FIORDALIZA Administration Azithromycin 500 mg/ Sodium 250 mls @ 250 mls/hr 06/12/20 16:00 06/12/20 17:46 Chloride IVPB 250 mls 1600 FIORDALIZA Administration Labetalol HCl 10 mg 06/12/20 10:03 06/13/20 09:00 Labetalol Hcl 100 Mg/20 Ml Vial SLOW IVP 10 mg Q4H PRN Administration SBP Greater Than 180 Lorazepam 1 mg 06/12/20 15:39 06/12/20 16:01 Lorazepam 2 Mg/Ml Vial SLOW IVP 1 mg Q6H PRN Administration Anxiety/Agitation Methylprednisolone Sodium Succinate 40 mg 06/12/20 11:00 06/13/20 12:45 Methylprednisolone Sod Succ 40 Mg Vial IVP 40 mg 1100 FIORDALIZA Administration Olanzapine 10 mg 06/12/20 21:00 06/12/20 20:32 Olanzapine 5 Mg Tab PO 10 mg HS FIORDALIZA Administration Pantoprazole Sodium 40 mg 06/13/20 09:00 06/13/20 08:59 Pantoprazole 40 Mg Vial IVP 40 mg DAILY FIORDALIZA Administration Perphenazine 1 mg 06/12/20 21:00 06/13/20 08:59 Perphenazine 2 Mg Tab PO 1 mg BID FIORDALIZA Administration Polyethylene Glycol 17 gm 06/12/20 19:11 06/13/20 09:17 Polyethylene Glycol 3350 17 Gm Packet PO 17 gm DAILYPRN PRN Administration Constipation Quetiapine Fumarate 800 mg 06/12/20 21:00 06/12/20 20:29 Quetiapine Fumarate 200 Mg Tab PO 800 mg QPM FIORDALIZA Administration Sodium Chloride 10 ml 06/12/20 21:00 06/13/20 08:59 Flush - Normal Saline 10 Ml Syringe IVF 10 ml Q12HR FIORDALIZA Administration Trazodone HCl 200 mg 06/12/20 21:00 06/12/20 20:28 Trazodone Hcl 50 Mg Tab PO 200 mg HS FIORDALIZA Administration Zolpidem Tartrate 5 mg 06/12/20 21:00 06/12/20 20:32 Zolpidem Tartrate 5 Mg Tab PO 5 mg HS FIORDALIZA Administration - Exam General Appearance: NAD Eye: PERRL ENT: normocephalic atraumatic Neck: supple Heart: RRR Respiratory: rhonchi Gastrointestinal: soft Extremities: no cyanosis Skin: normal turgor Neurological: cranial nerve grossly intact Musculoskeletal: normal tone Psychiatric: normal affect Hosp A/P - Plan This is a 49-year-old female patient with a history of diastolic dysfunction, polysubstance abuse, psychotic disorder who presents today with worsening shortness of breath. Acute heart failure exacerbation d/t coccaine abuse --cont IV diuresis, will start her on GDT for HF --follow Echo, pt was counseled avoid recreational drug use Acute hypoxic respiratory failure - resolved --likely d/t above History of polysubstance abuse --UDS positive for coccaine Hypertensive urgency --BP improved, will start her on GDT for HF Type II NSTEMI --d/t above problem Mild normocytic anemia --Hb stable Severe peripheral vascular disease --Previously evaluated, follow up with Dr. Washington YANG STATUSfull code [place] prophylaxisLovenox
[2020-06-13] MEDS ORDERED: Spironolactone 25 MG TAB PO SCH (15:15)
[2020-06-13] MEDS: hydrOXYzine 25 MG TAB PO SCH (22:31)
[2020-06-13] MEDS: traZODone HCl 50 MG TAB PO SCH (22:33)
[2020-06-13] MEDS: OLANZapine 5 MG TAB PO SCH (22:33)
[2020-06-13] MEDS: Zolpidem Tartrate 5 MG TAB PO SCH (22:34)
[2020-06-14] MEDS: Amlodipine 10 MG TAB PO SCH (09:26)
[2020-06-14] MEDS: Spironolactone 25 MG TAB PO SCH (09:26)
[2020-06-14] MEDS: Perphenazine 2 MG TAB PO SCH ×2 (09:27→21:21)
[2020-06-14] MEDS: Pantoprazole 40 MG VIAL IVP SCH (09:27)
[2020-06-14] MEDS: Furosemide 40 MG/4 ML VIAL SLOW IVP SCH (09:27)
[2020-06-14] MEDS: Acetaminophen/Codeine 30-300mg Tablet PO PRN ×2 (09:27→21:28)
[2020-06-14] MEDS: cloNIDine 0.3 MG TAB PO SCH ×2 (09:27→21:20)
[2020-06-14] MEDS: Polyethylene Glycol 3350 17 GM Packet PO PRN (09:29)
[2020-06-14] MEDS: Aluminum & Magnesium Hydroxide 60 ML, diphenhydrAMINE 150 MG, Lidocaine 2% Viscous Solu... SSW SCH ×3 (11:47→21:18)
--- NOTE | 2020-06-14 14:57 | PDOC.HOSPP ---
- Subjective Subjective: feeling better, no chest pain - Objective Vital Signs & Weight: Vital Signs (12 hours) Temp Pulse Resp BP BP Pulse Ox 06/14/20 11:50 98.2 F 77 15 120/64 93 L 06/14/20 09:25 98 06/14/20 09:15 97.8 F 85 16 156/74 H 98 06/14/20 08:00 85 18 100 06/14/20 04:34 97.7 F 83 16 159/86 H 96 Weight Weight 198 lb 6.4 oz I&O: 06/13/20 06/14/20 06/15/20 06:59 06:59 06:59 Intake Total 700 1710 Output Total 200 2530 Balance 500 -820 Result Diagrams: 06/12/20 06:33 06/12/20 06:33 Radiology Reviewed by me: Yes EKG Reviewed by me: Yes Hospitalist ROS - Medication Medications: Active Medications Generic Name Dose Route Start Last Admin Trade Name Freq PRN Reason Stop Dose Admin Acetaminophen/Codeine Phosphate 1 tab 06/12/20 15:01 06/14/20 09:27 Acetaminophen/Codeine 30-300mg Tablet PO 1 tab Q4H PRN Administration Moderate Pain (4-6) Albuterol/Ipratropium 3 ml 06/12/20 10:30 06/14/20 11:12 Ipratropium/Albuterol Sulfate 3 Ml Neb NEB Not Given [id number] FIORDALIZA Amlodipine Besylate 10 mg 06/13/20 09:00 06/14/20 09:26 Amlodipine 10 Mg Tab PO 10 mg DAILY FIORDALIZA Administration Clonidine 0.3 mg 06/12/20 21:00 06/14/20 09:27 Clonidine 0.3 Mg Tab PO 0.3 mg BID FIORDALIZA Administration Al Hydroxide/Mg Hydroxide 60 0 ml 06/14/20 11:30 06/14/20 11:47 ml/ Diphenhydramine HCl 150 mg SSW 10 ml / Lidocaine HCl 60 ml/ ACHS FIORDALIZA Administration Nystatin 6,000,000 units Hydroxyzine HCl 100 mg 06/12/20 21:00 06/13/20 22:31 Hydroxyzine 25 Mg Tab PO 100 mg HS FIORDALIZA Administration Labetalol HCl 10 mg 06/12/20 10:03 06/13/20 09:00 Labetalol Hcl 100 Mg/20 Ml Vial SLOW IVP 10 mg Q4H PRN Administration SBP Greater Than 180 Lorazepam 1 mg 06/12/20 15:39 06/12/20 16:01 Lorazepam 2 Mg/Ml Vial SLOW IVP 1 mg Q6H PRN Administration Anxiety/Agitation Metoprolol Succinate 25 mg 06/14/20 09:00 06/14/20 09:27 Metoprolol Succinate Xl 25 Mg Tab PO 25 mg DAILY FIORADLIZA Administration Olanzapine 10 mg 06/12/20 21:00 06/13/20 22:33 Olanzapine 5 Mg Tab PO 10 mg HS FIORDALIZA Administration Perphenazine 1 mg 06/12/20 21:00 06/14/20 09:27 Perphenazine 2 Mg Tab PO 1 mg BID FIORDALIZA Administration Polyethylene Glycol 17 gm 06/12/20 19:11 06/14/20 09:29 Polyethylene Glycol 3350 17 Gm Packet PO 17 gm DAILYPRN PRN Administration Constipation Quetiapine Fumarate 800 mg 06/12/20 21:00 06/13/20 22:35 Quetiapine Fumarate 200 Mg Tab PO 800 mg QPM FIORDALIZA Administration Sodium Chloride 10 ml 06/12/20 21:00 06/14/20 09:27 Flush - Normal Saline 10 Ml Syringe IVF 10 ml Q12HR FIORDALIZA Administration Spironolactone 25 mg 06/14/20 08:00 06/14/20 09:26 Spironolactone 25 Mg Tab PO 25 mg QAM-WM FIORDALIZA Administration Trazodone HCl 200 mg 06/12/20 21:00 06/13/20 22:33 Trazodone Hcl 50 Mg Tab PO 200 mg HS FIORDALIZA Administration Zolpidem Tartrate 5 mg 06/12/20 21:00 06/13/20 22:34 Zolpidem Tartrate 5 Mg Tab PO 5 mg HS FIORDALIZA Administration - Exam General Appearance: NAD Eye: PERRL ENT: normocephalic atraumatic Neck: supple Heart: RRR, no murmur Respiratory: CTAB Gastrointestinal: soft Extremities: no cyanosis Skin: normal turgor Hosp A/P - Plan This is a 49-year-old female patient with a history of diastolic dysfunction, polysubstance abuse, psychotic disorder who presents today with worsening shortness of breath. Acute on chronic systolic HF - d/t coccaine abuse --Transition to PO Lasix, started her on GDT for HF --Echo reviewed, EF 35%; pt was counseled avoid recreational drug use Acute hypoxic respiratory failure - resolved --likely d/t above History of polysubstance abuse --UDS positive for coccaine Hypertensive urgency --BP improved, will start her on GDT for HF Type II NSTEMI --d/t above problem Mild normocytic anemia --Hb stable Severe peripheral vascular disease --Previously evaluated, follow up with Dr. Delarosa CODE STATUSfull code [place] prophylaxisLovenox
[2020-06-14] MEDS ORDERED: Furosemide 40 MG TAB PO SCH (15:00)
[2020-06-14] MEDS: hydrOXYzine 25 MG TAB PO SCH (21:20)
[2020-06-14] MEDS: OLANZapine 5 MG TAB PO SCH (21:21)
[2020-06-14] MEDS: traZODone HCl 50 MG TAB PO SCH (21:23)
[2020-06-14] MEDS: Zolpidem Tartrate 5 MG TAB PO SCH (21:23)
[2020-06-15 04:45] LABS: Anion Gap 10 mmol/L (10-20); BUN (Urea Nitrogen) 19 mg/dL (7.0-18.7); Calc. Creatinine Clearance 111 mL/min (70-130); Calcium 8.9 mg/dL (7.8-10.44); Carbon Dioxide 31 mmol/L (22-29); Chloride 101 mmol/L (98-107); Estimated GFR-MDRD 83; Glucose 134 mg/dL (70-105); Magnesium 1.9 mg/dL (1.6-2.6); Potassium 4.2 mmol/L (3.5-5.1); Sodium 138 mmol/L (136-145)
[2020-06-15] MEDS ORDERED: Furosemide 40 MG TAB PO SCH (09:00)
[2020-06-15] MEDS: cloNIDine 0.3 MG TAB PO SCH (10:23)
[2020-06-15] MEDS: Perphenazine 2 MG TAB PO SCH (10:24)
[2020-06-15] MEDS: Amlodipine 10 MG TAB PO SCH (10:24)
[2020-06-15] MEDS: Spironolactone 25 MG TAB PO SCH (10:24)
[2020-06-15] MEDS: Aluminum & Magnesium Hydroxide 60 ML, diphenhydrAMINE 150 MG, Lidocaine 2% Viscous Solu... SSW SCH ×2 (10:25→11:42)
[2020-06-15] MEDS: Acetaminophen/Codeine 30-300mg Tablet PO PRN (10:32)
[2020-06-15 12:46] VITALS: TEMP 98
--- NOTE | 2020-06-15 12:47 | PDOC.DS.DS ---
Provider - Provider Date of Admission: 06/12/20 09:04 Date of Discharge: 06/15/20 Admitting Provider: Trent Muir MD Primary Care Physician: [facility] Course - Hospital Course Hospital Course: DISCHARGE DIAGNOSES: 1. Acute on chronic systolic heart failure, with EF 35% 2. Acute hypoxic respiratory failure secondary to above. 3. History of polysubstance abuse-urine drug screen positive for cocaine 4. Hypertensive urgency 5. Type II NSTEMI 6. Mild normocytic anemia 7. Severe peripheral vascular disease PERTINENT IMAGING STUDIES: CT abdomen pelvic: Aortoiliac occlusive disease with occlusions of the distal aorta bilaterally common iliacs arteries. Reconstitution's of the left internal and external iliac artery and reconstitution of the right internal iliacs in the right common femoral arteries. Small right greater than the left pleural eff usion Chest x-ray: Cardiomegaly, pulmonary opacity, predominantly interstitial HISTORY OF PRESENT ILLNESS AND BRIEF HOSPITAL COURSE: Patient is a pleasant 49 years old -[place] female who has significant past medical history of congestive heart failure, hypertension, peripheral vascular disease, substance abuse, presented to the ED with complaint of dyspnea, progressively worsened for the last 4 weeks. Initial work-up in the ED, found that she was hypoxic upon arrival, her BNP was elevated. Chest x-ray show increased vascularity. Troponins mildly elevated at 0.03. She was ultimat oliver admitted to hospitalist service for IV diuresis. Unfortunately, her urine drug screen still positive for cocaine. Patient was counseled extensively with regard to avoid recreational drug use. She verbalized understanding. At any rate, patient has been diuresed well. She had maintain negative fluid balance. Her echo came back shows EF of 35%. Her troponins remain flat. Patient was started on guideline directed therapy for heart failure. Patient is allergic to TYRELL inhibitor. At this time, patient is stable to discharge home, follow-up with PCP in 1 to 2 weeks. Patient need to have her electrolytes rechecked, as she started on potassium-sparing diuretic. It to be noted that patient had histories of chronic severe peripheral vascular disease, followed by Dr. Delarosa. We have encouraged her to follow-up with her PCP as well as her vascular surgeon for this issue. PROCEDURE PERFORMED: NONE DISCHARGE CONDITION: STABLE DISPOSITION: HOME PHYSICAL EXAM: General Appearance: Alert, oriented, resting comfortably, no apparent distress, well developed/nourished. HEENT: Normocephalic/atraumatic, moist mucous membrane, normal ENT inspection, normal tones. PERRLA, no scleral icterus, normal conjunctiva Neck: Supple, normal inspection, no JVD Respiratory: Lungs are clear bilaterally, normal breath sounds, no accessory muscle use Cardiovascular: Regular rate, regular rhythm, no murmur, no rubs Abdomen: Soft, nontender, nondistended, normal bowel sounds, no organomegaly, no guarding no rebound Back: Normal inspection, no CVA tenderness Extremities: No clubbing, no cyanosis, no edema Psych/Mental Status: Normal affect, speech, non-pressured, AAO x 3 Neurologic: CN II-XII are intact. Skin: Warm/Dry, Normal Color, no rashes DISCHARGE TIME SPENT: >30 MINUTES - Labs Lab Results: 06/12/20 06:33 06/15/20 04:05 Abnormal Lab Results - Last 48 hrs 06/15/20 04:05: Carbon Dioxide 31 H, BUN 19 H - Physical Exam Vitals: Vital Signs (12 hours) Temp Pulse Resp BP Pulse Ox 06/15/20 07:10 81 14 06/15/20 04:00 98.1 F 78 15 130/79 97 06/15/20 02:34 97 Weight Weight 198 lb 6.4 oz Physical Exam: The patient was seen and examined on the day of discharge. Plan - Discharge Medications Prescriptions: Spironolactone [Aldactone] 25 mg PO QAM-WM #30 tab Furosemide [Lasix] 40 mg PO 0900,1400 #60 tab Metoprolol Succinate [Toprol Xl] 50 mg PO DAILY #30 tab.er.24h Home Medications: Medication Instructions Recorded Confirmed Type Acetaminophen W/ Codeine 1 tab PO Q4H PRN #30 tab 06/25/19 06/12/20 Rx [Acetaminophen/Codeine #3] DULoxetine [Cymbalta] 60 mg PO DAILY #30 cap 06/25/19 06/12/20 Rx Perphenazine [Trilafon] 1 mg PO BID #60 tab 06/25/19 06/12/20 Rx QUEtiapine Fumarate [SEROquel] 800 mg PO QPM #120 tab 06/25/19 06/12/20 Rx Sennosides/Docusate Sodium 2 tab PO BID PRN #14 tab 06/25/19 06/12/20 Rx [Senokot S] Amlodipine [Norvasc] 2.5 mg PO DAILY 06/12/20 06/12/20 History OLANZapine [Olanzapine] 10 mg PO HS 06/12/20 06/12/20 History Ondansetron [Zofran ODT] 4 mg PO Q8HR PRN 06/12/20 06/12/20 History Pantoprazole [Protonix] 40 mg PO BID-WM 06/12/20 06/12/20 History Perphenazine 1 mg PO BID 06/12/20 06/12/20 History Zolpidem Tartrate [Ambien] 5 mg PO HS 06/12/20 06/12/20 History hydrOXYzine HCl [Hydroxyzine HCl] 100 mg PO HS 06/12/20 06/12/20 History traZODone HCl [Trazodone HCl] 200 mg PO HS 06/12/20 06/12/20 History Furosemide [Lasix] 40 mg PO 0900,1400 #60 tab 06/15/20 Rx Metoprolol Succinate [Toprol Xl] 50 mg PO DAILY #30 tab.er.24h 06/15/20 Rx Spironolactone [Aldactone] 25 mg PO QAM-WM #30 tab 06/15/20 Rx Allergies: dicyclomine HCl [From Bentyl] Allergy (Verified 10/24/19 18:49) INCREASED HR lisinopril Allergy (Verified 10/24/19 18:49) lips/tongue/throat swelling - Discharge Instructions Nourishment:: Low Sodium Diet - Follow up Plan Referrals: [facility] [Primary Care Provider] - (After hospital discharge, follow up for heart failure care with Madelin Looney APRN. She will work in partnership with your primary care provider and specialists to help prevent and treat symptoms of heart failure. The clinic will call you directly to set up a follow- up appointment, if not already scheduled before hospital discharge.) Disposition: HOME Quality - Care Measures CORE MEASURES:: HF
[2020-06-15 12:56] VITALS: BP 156/92
== END 2020-06-15 15:35 | disposition home or self-care (01) | DRG 917 ==
LOC: ERS 06:14 → ERHOLD 09:04 → 2NO 14:50
PROVIDERS: ADMIT Internal Medicine Critical Care Medicine; ATTEND Family Medicine
DX: T40.5X1A Poisoning by cocaine, accidental (unintentional), initial encounter (principal); J96.01 Acute respiratory failure with hypoxia; I21.A1 Myocardial infarction type 2; J96.02 Acute respiratory failure with hypercapnia; I50.23 Acute on chronic systolic (congestive) heart failure; F14.10 Cocaine abuse, uncomplicated; I16.0 Hypertensive urgency; D64.9 Anemia, unspecified; I73.9 Peripheral vascular disease, unspecified; Z20.828 Contact with and (suspected) exposure to other viral communicable diseases; F41.9 Anxiety disorder, unspecified; F31.9 Bipolar disorder, unspecified; I10 Essential (primary) hypertension; F20.9 Schizophrenia, unspecified; F43.10 Post-traumatic stress disorder, unspecified; F17.210 Nicotine dependence, cigarettes, uncomplicated; K21.9 Gastro-esophageal reflux disease without esophagitis; J40 Bronchitis, not specified as acute or chronic; F12.10 Cannabis abuse, uncomplicated; J44.9 Chronic obstructive pulmonary disease, unspecified; Z98.51 Tubal ligation status; Z95.828 Presence of other vascular implants and grafts; Z79.899 Other long term (current) drug therapy; Z79.1 Long term (current) use of non-steroidal anti-inflammatories (NSAID)
CPT/HCPCS: 36415; 36416; 71045; 74177; 80048; 80053; 80306; 82553; 82805; 83735; 83880; 84484; 84703; 85025; 87635; 93005; 93306; 94640; 96374; 96375; C9113; J0456; J0696; J1200; J1940; J2060; J2310; J2920; J3490; J7050; J7620; Q0163; Q0175; Q9967; U0003

== ENCOUNTER 2020-08-05 17:48 | Emergency (ER) | payer MEDICARE, MEDICAID ==
[2020-08-05] MEDS ORDERED: Lidocaine 4% Cream 5 GM TUBE w/ Tegaderm ONE (18:16)
== END 2020-08-05 18:47 | disposition home or self-care (01) ==
LOC: ERS 17:48
DX: N76.4 Abscess of vulva (principal); I11.0 Hypertensive heart disease with heart failure; I50.9 Heart failure, unspecified; K21.9 Gastro-esophageal reflux disease without esophagitis; F17.210 Nicotine dependence, cigarettes, uncomplicated; Z79.51 Long term (current) use of inhaled steroids; Z79.899 Other long term (current) drug therapy
CPT/HCPCS: 56405

== ENCOUNTER 2020-08-11 04:13 | Emergency (ER) | payer MEDICARE, MEDICAID ==
[2020-08-11] MEDS ORDERED: cloNIDine 0.1 MG TAB ONE (05:38)
[2020-08-11 05:57] LABS: Mean Corpuscular HGB CONC 32.8 g/dL (32.0-36.0); Mean Corpuscular Volume 85.1 fL (78.0-98.0); Mean Platelet Volume 8.6 fL (7.4-10.4); Platelet Count 333 thou/uL (130-400); RBC Distribution Width 20.1 % (11.5-14.5)
[2020-08-11 06:01] LABS: White Blood Cell (WBC) Count 8.8 thou/uL (4.8-10.8)
[2020-08-11 06:03] LABS: #Eosinphils 0.2 thou/uL (0.0-0.7); #Lymphocytes 3.1 thou/uL (1.20-3.40); #Monocytes 0.6 thou/uL (0.11-0.59); #Neutrophils 4.9 thou/uL (1.40-6.50); %Basophils 0.5 % (0.0-1.0); %Lymphocytes 35.3 % (21.0-51.0); %Monocytes 6.4 % (0.0-10.0); %Neutrophils 55.8 % (42.0-75.0); Band 1 % (5-11); Eosinophils 1 % (0-10); Lymphocytes 29 % (21-51); MDiff Complete? YES; Monocytes 8 % (0-10); Neutrophil 48 % (42-75); Reactive Lymphocytes 13 % (0-10)
[2020-08-11 06:05] LABS: Bilirubin Negative (Negative); Blood, Urine Negative (Negative); Clarity Turbid (Clear); Glucose, Urine (Dipstick) Normal (Negative); Ketone, Urine Negative (Negative); Leukocyte 25 Leu/uL (Negative); Nitrite Negative (Negative); Protein, Urine (Dipstick) 10 mg/dL (Neg-Trace); RBC/HPF None Seen HPF (0-3); Specific Gravity, Urine 1.014 (1.002-1.036); Squamous Epithelial 21-50 HPF (0-3); Urobilinogen Normal mg/dL (Less than 2); pH, Urine 6.5 (5.0-9.0)
[2020-08-11 06:34] LABS: Bacteria/HPF Rare-Few HPF (None Seen)
[2020-08-11] MEDS ORDERED: hydrALAZINE 20 MG/ML VIAL ONE ×2 (06:41→08:38)
[2020-08-11 07:37] LABS: ALT (SGPT) 14 U/L (8-55); AST (SGOT) 15 U/L (5-34); Albumin 3.4 g/dL (3.5-5.0); Alkaline Phosphatase 64 U/L (40-110); Anion Gap 17 mmol/L (10-20); BUN (Urea Nitrogen) 7 mg/dL (7.0-18.7); Bilirubin, Total 0.3 mg/dL (0.2-1.2); CK (CPK) 178 U/L (29-168); Calc. Creatinine Clearance 0 mL/min (70-130); Calcium 8.4 mg/dL (7.8-10.44); Carbon Dioxide 22 mmol/L (22-29); Chloride 104 mmol/L (98-107); Globulin 3.5 g/dL (2.4-3.5); Glucose 138 mg/dL (70-105); Potassium 3.7 mmol/L (3.5-5.1); Protein, Total 6.9 g/dL (6.0-8.3); Sodium 139 mmol/L (136-145)
--- NOTE | 2020-08-11 07:52 | RAD ---
RADIOGRAPH CHEST 1 VIEW: DATE: 08/11/2020 TIME: 4:41 AM HISTORY: 49-year-old female with chest pain and dyspnea COMPARISON: 06/12/2020 FINDINGS: Borderline cardiomegaly, slightly smaller than on prior study. The previously demonstrated mild pulmonary interstitial densities are either stable or minimally impr santiago. No consolidation. Lateral costophrenic angles are sharp. No pneumothorax. IMPRESSION: 1) minimal/mild interstitial changes 2) borderline cardiomegaly. 3) no consolidation
--- NOTE | 2020-08-11 08:28 | CT ---
Final report by Dr. Vargas Emergency after-hours study CT ANGIOGRAM THORAX WITH CONTRAST: (CTA pulmonary angiogram) DATE: 08/11/2020 6:04 AM HISTORY: 49-year-old female with chest pain and dyspnea TECHNIQUE: IV injection of iodinated contrast. Scan acquisition timing attempted to coincide with iodinated contrast bolus reaching maximal density in pulmonary arteries. 3-D MIP reconstructions. FINDINGS: Although there is excellent contrast opacification of pulmonary arteries, the images are degraded by breathing motion artifact. No pulmonary thromboembolism identified to the fourth order segmental branches. Scattered minimal mild interstitial densities could be due to breathing motion artifact. No consolida tion or pneumothorax. Tiny right pleural effusion. There are multiple mildly to moderately enlarged noncalcified mediastinal lymph nodes and bilateral h ilar lymph nodes. This is a minor disagreement with the preliminary report by direct radiology. This is somewhat worse than on 06/25/2018. Mild cardiomegaly. The heart size has increased since 06/25/2018. New small patchy parenchymal density at lingula, nonspecific. Perhaps subsegmental atelectasis. Less likely pneumonia. No major disagreement with preliminary report by direct radiology. IMPRESSION: 1) no pulmonary thromboembolism identified. 2) interval development of cardiomegaly 3) interval development of moderate mediastinal and hilar lymphadenopathy. 4) tiny right pleural effusion 5) evaluation for groundglass lesions is hampered by breathing motion artifact.
== END 2020-08-11 09:11 | disposition home or self-care (01) ==
LOC: ERS 04:13
DX: I11.0 Hypertensive heart disease with heart failure (principal); I50.9 Heart failure, unspecified; J44.9 Chronic obstructive pulmonary disease, unspecified; K21.9 Gastro-esophageal reflux disease without esophagitis; G47.30 Sleep apnea, unspecified; F17.210 Nicotine dependence, cigarettes, uncomplicated; Z79.51 Long term (current) use of inhaled steroids; Z79.899 Other long term (current) drug therapy
CPT/HCPCS: 36415; 71045; 71275; 80053; 81003; 81015; 82550; 84484; 85025; 85379; 93005; 96374; 96376; J0360

== ENCOUNTER 2020-09-13 09:55 | Observation (INO) | payer MEDICARE, MEDICAID ==
[2020-09-13] MEDS ORDERED: methylPREDNISolone Sod Succ/PF 125 MG/2 ML VIAL ONE (10:29)
[2020-09-13 10:50] LABS: #Basophils 0.1 thou/uL (0.0-0.2); #Eosinphils 0.2 thou/uL (0.0-0.7); #Lymphocytes 2.7 thou/uL (1.20-3.40); #Neutrophils 3.7 thou/uL (1.40-6.50); %Eosinophils 2.2 % (0.0-10.0); %Lymphocytes 35.2 % (21.0-51.0); %Monocytes 13.1 % (0.0-10.0); %Neutrophils 48.5 % (42.0-75.0); Hemoglobin 12.5 g/dL (12.0-16.0); Mean Corpuscular HGB CONC 33.8 g/dL (32.0-36.0); Mean Corpuscular Hemoglobin 28.4 pg (27.0-31.0); Mean Corpuscular Volume 84.2 fL (78.0-98.0); Mean Platelet Volume 8.1 fL (7.4-10.4); Platelet Count 285 thou/uL (130-400); RBC Distribution Width 19.3 % (11.5-14.5); White Blood Cell (WBC) Count 7.6 thou/uL (4.8-10.8)
--- NOTE | 2020-09-13 11:04 | RAD ---
XR Chest 1 View Portable History: Dyspnea Comparison: Radiograph August 11, 2020 Findings: Faint perihilar airspace opacities are present. No pneumothorax. No effusion. No acute osse ous abnormality. Mild bilateral perihilar adenopathy. Impression: 1. Faint perihilar airspace opacities can be seen with Covid pneumonia or mild pulmonary edema. 2. Perihilar adenopathy can be seen with sarcoidosis.
[2020-09-13 11:13] LABS: ALT (SGPT) 8 U/L (8-55); AST (SGOT) 14 U/L (5-34); Albumin 3.5 g/dL (3.5-5.0); Alkaline Phosphatase 75 U/L (40-110); Anion Gap 13 mmol/L (10-20); BUN (Urea Nitrogen) 7 mg/dL (7.0-18.7); Bilirubin, Total 0.4 mg/dL (0.2-1.2); Calc. Creatinine Clearance 0 mL/min (70-130); Calcium 8.5 mg/dL (7.8-10.44); Carbon Dioxide 22 mmol/L (22-29); Chloride 106 mmol/L (98-107); Glucose 116 mg/dL (70-105); Magnesium 1.9 mg/dL (1.6-2.6); Potassium 3.7 mmol/L (3.5-5.1); Protein, Total 7.5 g/dL (6.0-8.3); Sodium 137 mmol/L (136-145)
[2020-09-13] MEDS ORDERED: Magnesium 2 GM/50 ML BAG (IN WATER) ONE (11:47)
[2020-09-13] MEDS ORDERED: Albuterol 200 PUFF (6.7GM INHALER) ONE (12:08)
[2020-09-13] MEDS ORDERED: Ondansetron PF 4 MG/2 ML Vial ONE (12:10)
[2020-09-13] MEDS ORDERED: Morphine 4 MG/ML VIAL ONE (12:10)
[2020-09-13 12:30] LABS: Bacteria/HPF None Seen HPF (None Seen); Bilirubin Negative (Negative); Blood, Urine 3+ (Negative); Clarity Extra Turbid (Clear); Glucose, Urine (Dipstick) Normal (Negative); Ketone, Urine Negative (Negative); Leukocyte 75 Leu/uL (Negative); Nitrite Negative (Negative); Protein, Urine (Dipstick) 200 mg/dL (Neg-Trace); RBC/HPF Greater than 50 HPF (0-3); Specific Gravity, Urine 1.016 (1.002-1.036); Urobilinogen Normal mg/dL (Less than 2); WBC/HPF Greater than 50 HPF (0-3)
[2020-09-13 13:18] LABS: SARS-CoV-2 NAA Rapid Test Not Detected (NotDetected)
[2020-09-13] MEDS ORDERED: cefTRIAXone\\ROCEPHIN 2 GM VIAL ONE ×2 (14:08→14:13)
[2020-09-13] MEDS ORDERED: Aspirin Chewable 81 MG TAB ONE ×2 (14:08→14:13)
[2020-09-13] MEDS ORDERED: Nitroglycerin 0.4 MG TAB 1 EACH ONE ×2 (14:08→14:13)
[2020-09-13] MEDS ORDERED: Potassium Chloride 20 MEQ TAB ONE (14:17)
[2020-09-13 15:16] LABS: Troponin I 0.017 ng/mL (< 0.028)
[2020-09-13] MEDS ORDERED: Senokot S 8.6-50 MG TAB PO PRN (15:37)
[2020-09-13] MEDS ORDERED: Acetaminophen 325 MG TAB PO PRN (15:37)
[2020-09-13] MEDS ORDERED: Ondansetron PF 4 MG/2 ML Vial IVP PRN (15:37)
[2020-09-13] MEDS ORDERED: cloNIDine 0.1 MG TAB PO SCH (16:00)
[2020-09-13] MEDS ORDERED: Furosemide 20 MG/2 ML VIAL SLOW IVP SCH (16:00)
[2020-09-13] MEDS ORDERED: Lorazepam 0.5 MG TAB PO SCH (16:00)
--- NOTE | 2020-09-13 16:03 | PDOC.HHP ---
Hospitalist NAHUM SOB History of Present Illness: Patient is 49-year-old female with PMH of chronic systolic CHF, asthma, HTN, GERD, severe PVD, anxiety/depression, and history of polysubstance abuse who presents to the ED with shortness of breath for the past 3 days. She also reports productive cough, chills, chest tightness, and nausea. She denies leg swelling. She states she tried her inhaler at home with no significant improv ement of her symptoms. ED Course: Patient was noted to have been respiratory distress on arrival to the ED, however SPO2 remains in the low 90s on room air. Her symptoms improved with breathing treatment, IV magnesium, and Solu-Medrol. Allergies/Adverse Reactions: Allergy/AdvReac Type Severity Reaction Status Date / Time dicyclomine HCl [From Bentyl] Allergy Verified 10/24/19 18:49 lisinopril Allergy lips/tongue/throat Verified 10/24/19 18:49 swelling Home Medications: Medication Instructions Recorded Confirmed Type Acetaminophen W/ Codeine 1 tab PO Q4H PRN #30 tab 06/25/19 06/12/20 Rx [Acetaminophen/Codeine #3] DULoxetine [Cymbalta] 60 mg PO DAILY #30 cap 06/25/19 06/12/20 Rx Perphenazine [Trilafon] 1 mg PO BID #60 tab 06/25/19 06/12/20 Rx QUEtiapine Fumarate [SEROquel] 800 mg PO QPM #120 tab 06/25/19 06/12/20 Rx Sennosides/Docusate Sodium 2 tab PO BID PRN #14 tab 06/25/19 06/12/20 Rx [Senokot S] Amlodipine [Norvasc] 2.5 mg PO DAILY 06/12/20 06/12/20 History OLANZapine [Olanzapine] 10 mg PO HS 06/12/20 06/12/20 History Ondansetron [Zofran ODT] 4 mg PO Q8HR PRN 06/12/20 06/12/20 History Pantoprazole [Protonix] 40 mg PO BID-WM 06/12/20 06/12/20 History Perphenazine 1 mg PO BID 06/12/20 06/12/20 History Zolpidem Tartrate [Ambien] 5 mg PO HS 06/12/20 06/12/20 History hydrOXYzine HCl [Hydroxyzine HCl] 100 mg PO HS 06/12/20 06/12/20 History traZODone HCl [Trazodone HCl] 200 mg PO HS 06/12/20 06/12/20 History Furosemide [Lasix] 40 mg PO 0900,1400 #60 tab 06/15/20 Rx Metoprolol Succinate [Toprol Xl] 50 mg PO DAILY #30 tab.er.24h 06/15/20 Rx Spironolactone [Aldactone] 25 mg PO QAM-WM #30 tab 06/15/20 Rx Past History: PMHx: CHF, asthma, HTN, GERD, severe PVD (sees Dr. Delarosa), anxiety/depression, and history of polysubstance abuse PSHx: Bilateral lower extremity stent placement, tubal ligation, surgery for ectopic FHx: Father: Heart disease Social: She denies alcohol use. She uses marijuana daily but denies cocaine use. She smokes half pack per day Hospitalist HPI ROS Constitutional: reports: chills. denies: fever Eyes: denies: vision change ENT: denies: throat pain Respiratory: reports: cough, shortness of breath Cardiovascular: reports: chest pain, paroxysmal noc. dyspnea. denies: orthopnea, edema Gastrointestinal: reports: nausea, vomiting. denies: abdominal pain, diarrhea Genitourinary: denies: dysuria, frequency Musculoskeletal: reports: other (Negative for joint pain) Other: Positive for ROGERS Hospitalist Exam General - other findings: mild respiratory distress Eye: PERRL ENT: moist mucosa Neck: supple, JVD Heart: RRR, no murmur, no gallops Respiratory: no tachypnea Respiratory - other findings: Mild respiratory distress, bilateral expiratory wheezing present Gastrointestinal: soft, non-tender, non-distended, normal bowel sounds Extremities: no edema Neurological: normal sensation to touch, no weakness Musculoskeletal: normal strength Psychiatric - other findings: Alert. Mild intermittent anxiety Hospitalist Results Result Diagrams: 09/13/20 10:40 09/13/20 10:40 Lab results: Laboratory Last Values WBC 7.6 thou/uL (4.8-10.8) 09/13/20 10:40 RBC 4.40 mill/uL (4.20-5.40) 09/13/20 10:40 Hgb 12.5 g/dL (12.0-16.0) 09/13/20 10:40 Hct 37.0 % (36.0-47.0) 09/13/20 10:40 MCV 84.2 fL (78.0-98.0) 09/13/20 10:40 MCH 28.4 pg (27.0-31.0) 09/13/20 10:40 MCHC 33.8 g/dL (32.0-36.0) 09/13/20 10:40 RDW 19.3 % (11.5-14.5) H 09/13/20 10:40 Plt Count 285 thou/uL (130-400) 09/13/20 10:40 MPV 8.1 fL (7.4-10.4) 09/13/20 10:40 Neutrophils % 48.5 % (42.0-75.0) 09/13/20 10:40 Lymphocytes % 35.2 % (21.0-51.0) 09/13/20 10:40 Monocytes % 13.1 % (0.0-10.0) H 09/13/20 10:40 Eosinophils % 2.2 % (0.0-10.0) 09/13/20 10:40 Basophils % 1.0 % (0.0-1.0) 09/13/20 10:40 Neutrophils # 3.7 thou/uL (1.40-6.50) 09/13/20 10:40 Lymphocytes # 2.7 thou/uL (1.20-3.40) 09/13/20 10:40 Monocytes # 1.0 thou/uL (0.11-0.59) H 09/13/20 10:40 Eosinophils # 0.2 thou/uL (0.0-0.7) 09/13/20 10:40 Basophils # 0.1 thou/uL (0.0-0.2) 09/13/20 10:40 Sodium 137 mmol/L (136-145) 09/13/20 10:40 Potassium 3.7 mmol/L (3.5-5.1) 09/13/20 10:40 Chloride 106 mmol/L (98-107) 09/13/20 10:40 Carbon Dioxide 22 mmol/L (22-29) 09/13/20 10:40 Anion Gap 13 mmol/L (10-20) 09/13/20 10:40 BUN 7 mg/dL (7.0-18.7) 09/13/20 10:40 Creatinine 0.72 mg/dL (0.6-1.1) 09/13/20 10:40 Estimated GFR (MDRD) Greater than 90 09/13/20 10:40 Glucose 116 mg/dL (70-105) H 09/13/20 10:40 Lactic Acid 1.1 mmol/L (0.5-2.2) 09/13/20 13:49 Calcium 8.5 mg/dL (7.8-10.44) 09/13/20 10:40 Magnesium 1.9 mg/dL (1.6-2.6) 09/13/20 10:40 Total Bilirubin 0.4 mg/dL (0.2-1.2) 09/13/20 10:40 AST 14 U/L (5-34) 09/13/20 10:40 ALT 8 U/L (8-55) 09/13/20 10:40 Alkaline Phosphatase 75 U/L (40-110) 09/13/20 10:40 Troponin I 0.017 ng/mL (< 0.028) 09/13/20 14:42 B-Natriuretic Peptide 252.3 pg/mL (0-100) H 09/13/20 10:40 Serum Total Protein 7.5 g/dL (6.0-8.3) 09/13/20 10:40 Albumin 3.5 g/dL (3.5-5.0) 09/13/20 10:40 Globulin 4.0 g/dL (2.4-3.5) H 09/13/20 10:40 Albumin/Globulin Ratio 0.9 g/dL (1.2-2.2) L 09/13/20 10:40 Urine Color Dark-Brown (Yellow) 09/13/20 12:00 Urine Clarity Extra Turbid (Clear) A 09/13/20 12:00 Urine pH 7.0 (5.0-9.0) 09/13/20 12:00 Ur Specific Mccool 1.016 (1.002-1.036) 09/13/20 12:00 Urine Protein 200 mg/dL (Neg-Trace) A 09/13/20 12:00 Urine Glucose (UA) Normal mg/dL (Negative) 09/13/20 12:00 Urine Ketones Negative mg/dL (Negative) 09/13/20 12:00 Urine Blood 3+ (Negative) A 09/13/20 12:00 Urine Nitrite Negative (Negative) 09/13/20 12:00 Urine Bilirubin Negative (Negative) 09/13/20 12:00 Urine Urobilinogen Normal mg/dL (Less than 2) 09/13/20 12:00 Ur Leukocyte Esterase 75 Josselyn/uL (Negative) A 09/13/20 12:00 Urine RBC Greater than 50 HPF (0-3) A 09/13/20 12:00 Urine WBC Greater than 50 HPF (0-3) A 09/13/20 12:00 Ur Squamous Epith Cells 11-20 HPF (0-3) A 09/13/20 12:00 Urine Bacteria None Seen HPF (None Seen) 09/13/20 12:00 Influenza A RNA INAAT Not Detected (NotDetected) 09/13/20 12:25 Influenza B RNA INAAT Not Detected (NotDetected) 09/13/20 12:25 SARS-CoV-2 Rap RNA(RT-PCR) Not Detected (NotDetected) 09/13/20 12:25 Chest x-ray Status: image reviewed by me Additional Comments: RADIOLOGY SatSep 13, 2020 13:01 AVRIL Khan, Germán XR Chest 1 View Portable Observe DT: SatSep 13, 2020 10:19, CXRP XR Chest 1 View Portable History: Dyspnea Comparison: Radiograph August 11, 2020 Findings: Faint perihilar airspace opacities are present. No pneumothorax. No effusion. No acute osse ous abnormality. Mild bilateral perihilar adenopathy. Impression: 1. Faint perihilar airspace opacities can be seen with Covid pneumonia or mild pulmonary edema. 2. Perihilar adenopathy can be seen with sarcoidosis. EKG Status: image reviewed by me (NSR, LVH, prolonged QT) Hospitalist H&P A/P (1) Asthma exacerbation Code(s): J45.901 - UNSPECIFIED ASTHMA WITH (ACUTE) EXACERBATION Status: Acute Qualifiers: Asthma severity: severe Assessment and Plan: Patient presented with asthma exasperation, symptoms improved with breathing treatment, solumedrol and IV magnesium sulfate. Plan: -O2 supplement prn -Solumedrol 60 iv Q8H -Duoneb Q4H -albuterol prn (2) Accelerated hypertension Code(s): I10 - ESSENTIAL (PRIMARY) HYPERTENSION Status: Chronic Assessment and Plan: BP elevated on arrival. She says she did not take her home med today. Plan: -continue home meds (3) Chronic systolic CHF (congestive heart failure) Code(s): I50.22 - CHRONIC SYSTOLIC (CONGESTIVE) HEART FAILURE Status: Chronic Assessment and Plan: CXR showed findings concerning for mild pulmonary edema. Plan: -Lasix 20 mg iv bid -cont home meds -monitor electrolytes (4) Mediastinal lymphadenopathy Code(s): R59.0 - LOCALIZED ENLARGED LYMPH NODES Status: Chronic Assessment and Plan: CXR showed perihilar adenopathy which can be seen with sarcoidosis. Patient denies hx of sarcoidosis. CT chest done in 08/2020 showed interval development of moderate mediastinal and healer lymphadenopathy. Plan: -f/u with pulmonary outpatient (5) Abnormal urinalysis Code(s): R82.90 - UNSPECIFIED ABNORMAL FINDINGS IN URINE Status: Acute Assessment and Plan: Patient denies UTI symptoms. Plan: -urine culture (6) Polysubstance abuse Code(s): F19.10 - OTHER PSYCHOACTIVE SUBSTANCE ABUSE, UNCOMPLICATED Status: Chronic Assessment and Plan: Patient reports marijuana use. She has history of cocaine abuse. Plan -urine drug screen -encourage patient to stop using drug
[2020-09-13] MEDS ORDERED: cloNIDine 0.1 MG TAB ONE (16:32)
[2020-09-13] MEDS ORDERED: Furosemide 20 MG/2 ML VIAL ONE (16:32)
[2020-09-13] MEDS ORDERED: Lorazepam 1 MG TAB ONE (16:32)
[2020-09-13 17:37] LABS: Troponin I 0.017 ng/mL (< 0.028)
[2020-09-13] MEDS ORDERED: Pantoprazole 40 MG GRANULES PACKET PO SCH (21:00)
[2020-09-13] MEDS ORDERED: Nicotine 14 MG PATCH TD SCH (21:00)
[2020-09-13 21:36] VITALS: BMI 26.3
[2020-09-13] MEDS: cloNIDine 0.1 MG TAB PO SCH (23:15)
[2020-09-13] MEDS ORDERED: OLANZapine 5 MG TAB PO SCH (23:30)
[2020-09-13] MEDS ORDERED: Perphenazine 2 MG TAB PO SCH (23:30)
[2020-09-13] MEDS ORDERED: hydrOXYzine 25 MG TAB PO SCH (23:30)
[2020-09-13] MEDS ORDERED: traZODone HCl 50 MG TAB PO SCH (23:30)
[2020-09-13] MEDS ORDERED: FLU VACC QS2020-21(6MOS UP)/PF 60 MCG/0.5 ML SYRINGE IM ONE (23:45)
[2020-09-13] MEDS: methylPREDNISolone Sod Succ/PF 125 MG/2 ML VIAL IVP SCH (23:52)
[2020-09-14 03:50] LABS: #Lymphocytes 1.1 thou/uL (1.20-3.40); #Monocytes 0.3 thou/uL (0.11-0.59); #Neutrophils 5.3 thou/uL (1.40-6.50); %Basophils 0.1 % (0.0-1.0); %Eosinophils 0.1 % (0.0-10.0); %Lymphocytes 16.1 % (21.0-51.0); %Neutrophils 79.6 % (42.0-75.0); Hemoglobin 12.6 g/dL (12.0-16.0); Mean Corpuscular Hemoglobin 27.5 pg (27.0-31.0); Mean Corpuscular Volume 83.3 fL (78.0-98.0); Mean Platelet Volume 9.8 fL (7.4-10.4); Platelet Count 324 thou/uL (130-400); RBC Distribution Width 19.7 % (11.5-14.5); Red Blood Cell (RBC) Count 4.58 mill/uL (4.20-5.40); White Blood Cell (WBC) Count 6.6 thou/uL (4.8-10.8)
[2020-09-14] MEDS: cloNIDine 0.1 MG TAB PO SCH (05:18)
[2020-09-14] MEDS: methylPREDNISolone Sod Succ/PF 125 MG/2 ML VIAL IVP SCH (05:23)
[2020-09-14 05:38] LABS: Anion Gap 11 mmol/L (10-20); BUN (Urea Nitrogen) 9 mg/dL (7.0-18.7); Calc. Creatinine Clearance 97 mL/min (70-130); Calcium 8.7 mg/dL (7.8-10.44); Carbon Dioxide 25 mmol/L (22-29); Chloride 104 mmol/L (98-107); Glucose 316 mg/dL (70-105); Magnesium 2.1 mg/dL (1.6-2.6); Potassium 4.3 mmol/L (3.5-5.1); Sodium 136 mmol/L (136-145)
[2020-09-14] MEDS ORDERED: Furosemide 20 MG/2 ML VIAL SLOW IVP SCH (06:00)
[2020-09-14 07:46] VITALS: BP 180/79; TEMP 98.1
[2020-09-14] MEDS ORDERED: Spironolactone 25 MG TAB PO SCH (08:00)
[2020-09-14] MEDS ORDERED: Amlodipine 5 MG TAB PO SCH ×2 (09:00)
[2020-09-14] MEDS ORDERED: DULoxetine 60 MG CAP PO SCH (09:00)
[2020-09-14] MEDS ORDERED: OLANZapine 5 MG TAB PO SCH ×2 (09:00→21:00)
[2020-09-14] MEDS ORDERED: Perphenazine 2 MG TAB PO SCH (09:00)
--- NOTE | 2020-09-14 10:49 | PDOC.DS.DS ---
Provider Date of Admission: 09/13/20 14:16 Date of Discharge: 09/14/20 Admitting Provider: Sally Melo MD Primary Care Physician: [facility] Course Hospital Course: Discharge diagnosis: 1. Asthma exacerbation 2. COVID-19 test negative 3. Influenza test negative 4. Hypertensive urgency Hospital course: Patient is a pleasant 49-year-old lady who was admitted to the hospital on 2020 for asthma exacerbation and hypertensive urgency. She improved with oxygen, steroids, bronchodilators and her home antihypertensives. She is being discharged home in stable condition. Many thanks for allowing me to participate in your patient's care. Please feel free to contact me with any questions or concerns. Discharge destination: Home Resuscitation Status: 09/13/20 15:37 Resuscitation Status Routine Resuscitation Status: FULL: Full Resuscitation Discussed with: Patient Lab Results: 09/14/20 03:12 09/14/20 04:31 Abnormal Lab Results - Last 48 hrs 09/13/20 10:40: Globulin 4.0 H, Albumin/Globulin Ratio 0.9 L 09/13/20 10:40: B-Natriuretic Peptide 252.3 H 09/13/20 10:40: RDW 19.3 H, Monocytes % 13.1 H, Monocytes # 1.0 H 09/13/20 12:00: Urine Clarity Extra Turbid A, Urine Protein 200 A, Urine Blood 3+ A, Ur Leukocyte Esterase 75 A, Urine RBC Greater than 50 A, Urine WBC Greater than 50 A, Ur Squamous Epith Cells 11-20 A 09/14/20 03:12: RDW 19.7 H, Neutrophils % 79.6 H, Lymphocytes % 16.1 L, Lymphocytes # 1.1 L Microbiology - Entire Visit 09/13/20 12:00 Urine voided Urine Culture - Preliminary NO GROWTH AT 12 HOURS Vitals: Vital Signs (12 hours) Temp Pulse Resp BP BP Pulse Ox 09/14/20 09:10 85 09/14/20 07:44 98.1 F 85 19 180/79 H 96 09/14/20 07:40 80 16 97 09/14/20 04:25 98.4 F 84 19 176/86 H 96 09/14/20 02:18 89 16 97 09/14/20 01:12 166/90 H 09/14/20 00:04 180/98 H Weight Admit Weight 173 lb 1.6 oz Weight 173 lb 1.6 oz Physical Exam: The patient was seen and examined on the day of discharge. Patient denies chest pain or shortness of breath. Vital signs are stable. S1 and S2 are heard. Lungs are clear to auscultation bilaterally. Plan Prescriptions: Cefdinir [Omnicef] 300 mg PO BID #14 cap predniSONE 20 mg PO ASDIR #16 tab Albuterol Sulfate HFA (OR) [Proventil Hfa (or)] 1 puff INH Q4H PRN #1 inh PRN Reason: Sob &/Or Wheezing Home Medications: Medication Instructions Recorded Confirmed Type Acetaminophen W/ Codeine 1 tab PO Q4H PRN #30 tab 06/25/19 09/13/20 Rx [Acetaminophen/Codeine #3] DULoxetine [Cymbalta] 60 mg PO DAILY #30 cap 06/25/19 09/13/20 Rx Perphenazine [Trilafon] 1 mg PO BID #60 tab 06/25/19 09/13/20 Rx QUEtiapine Fumarate [SEROquel] 800 mg PO QPM #120 tab 06/25/19 09/13/20 Rx Sennosides/Docusate Sodium 2 tab PO BID PRN #14 tab 06/25/19 09/13/20 Rx [Senokot S] Amlodipine [Norvasc] 2.5 mg PO DAILY 06/12/20 09/13/20 History OLANZapine [Olanzapine] 10 mg PO HS 06/12/20 09/13/20 History Ondansetron [Zofran ODT] 4 mg PO Q8HR PRN 06/12/20 09/13/20 History Pantoprazole [Protonix] 40 mg PO BID-WM 06/12/20 09/13/20 History Perphenazine 1 mg PO BID 06/12/20 09/13/20 History Zolpidem Tartrate [Ambien] 10 mg PO HS 06/12/20 09/13/20 History hydrOXYzine HCl [Hydroxyzine HCl] 100 mg PO HS 06/12/20 09/13/20 History traZODone HCl [Trazodone HCl] 200 mg PO HS 06/12/20 09/13/20 History Metoprolol Succinate [Toprol Xl] 50 mg PO DAILY #30 tab.er.24h 06/15/20 09/13/20 Rx Spironolactone [Aldactone] 25 mg PO QAM-WM #30 tab 06/15/20 09/13/20 Rx Furosemide [Lasix] 40 mg PO QAM 09/13/20 09/13/20 History Albuterol Sulfate HFA (OR) 1 puff INH Q4H PRN #1 inh 09/14/20 Rx [Proventil Hfa (or)] Cefdinir [Omnicef] 300 mg PO BID #14 cap 09/14/20 Rx predniSONE 20 mg PO ASDIR #16 tab 09/14/20 Rx Allergies: dicyclomine HCl [From Bentyl] Allergy (Verified 09/13/20 21:18) INCREASED HR lisinopril Allergy (Verified 09/13/20 21:18) lips/tongue/throat swelling Discharge Instructions:: Check your blood pressure and heart rate 3 times a day and shows readings to your primary care provider. Activity:: Activity as Tolerated Nourishment:: Heart Healthy Diet Referrals: [facility] [Primary Care Provider] - 3 Days (Please call to sharan a follow up appointment in 3 days with your primary care provider.) Disposition: HOME Quality CORE MEASURES:: N/A
[2020-09-14] MEDS ORDERED: hydrOXYzine 25 MG TAB PO SCH (21:00)
[2020-09-14] MEDS ORDERED: Zolpidem Tartrate 5 MG TAB PO SCH (21:00)
[2020-09-14] MEDS ORDERED: traZODone HCl 50 MG TAB PO SCH (21:00)
== END 2020-09-14 10:50 | disposition home or self-care (01) ==
LOC: ERS 09:55 → 2NO 14:16
PROVIDERS: ADMIT Internal Medicine; ATTEND Internal Medicine
DX: J45.901 Unspecified asthma with (acute) exacerbation (principal); I16.0 Hypertensive urgency; I11.0 Hypertensive heart disease with heart failure; I50.22 Chronic systolic (congestive) heart failure; R59.0 Localized enlarged lymph nodes; R82.90 Unspecified abnormal findings in urine; K21.9 Gastro-esophageal reflux disease without esophagitis; F41.9 Anxiety disorder, unspecified; F17.210 Nicotine dependence, cigarettes, uncomplicated; F14.11 Cocaine abuse, in remission; G25.81 Restless legs syndrome; F43.10 Post-traumatic stress disorder, unspecified; F31.9 Bipolar disorder, unspecified; F12.11 Cannabis abuse, in remission; Z91.5 Personal history of self-harm; Z79.899 Other long term (current) drug therapy; Z88.8 Allergy status to other drugs, medicaments and biological substances; Z20.822 Contact with and (suspected) exposure to COVID-19
CPT/HCPCS: 0240U; 71045; 80048; 80053; 83605; 83735 ×2; 83880; 84484 ×2; 85025 ×2; 87040; 87086; 93005; 94640 ×3; 96365; 96367; 96375; 99285; 36415; 81003; 81015; 96376; G0378; J0696; J1940; J2270; J2405; J2930; J3475; J7620; Q0175

== ENCOUNTER 2020-09-20 11:02 | Emergency (ER) | payer MEDICARE, MEDICAID ==
[2020-09-20 11:45] LABS: Hemoglobin 14.2 g/dL (12.0-16.0); Mean Corpuscular HGB CONC 33.3 g/dL (32.0-36.0); Mean Corpuscular Hemoglobin 27.9 pg (27.0-31.0); Mean Corpuscular Volume 83.9 fL (78.0-98.0); Mean Platelet Volume 8.3 fL (7.4-10.4); Platelet Count 399 thou/uL (130-400); RBC Distribution Width 19.3 % (11.5-14.5); Red Blood Cell (RBC) Count 5.09 mill/uL (4.20-5.40); White Blood Cell (WBC) Count 5.3 thou/uL (4.8-10.8)
[2020-09-20 12:08] LABS: ALT (SGPT) 13 U/L (8-55); AST (SGOT) 13 U/L (5-34); Acetaminophen Less than 6.0 mcg/mL (10.0-30.0); Albumin 3.8 g/dL (3.5-5.0); Alcohol Less than 10 mg/dL (Less than 10); Alkaline Phosphatase 74 U/L (40-110); Anion Gap 15 mmol/L (10-20); BUN (Urea Nitrogen) 9 mg/dL (7.0-18.7); Bilirubin, Total 0.3 mg/dL (0.2-1.2); Calc. Creatinine Clearance 0 mL/min (70-130); Calcium 8.9 mg/dL (7.8-10.44); Carbon Dioxide 22 mmol/L (22-29); Chloride 107 mmol/L (98-107); Globulin 3.6 g/dL (2.4-3.5); Glucose 112 mg/dL (70-105); Protein, Total 7.4 g/dL (6.0-8.3); Salicylate Less than 8.0 mg/dL (15.0-30.0); Sodium 140 mmol/L (136-145)
[2020-09-20 12:10] LABS: Troponin I 0.022 ng/mL (< 0.028)
[2020-09-20] MEDS ORDERED: Dexamethasone 10 MG/ML VIAL ONE (12:12)
[2020-09-20 12:25] LABS: Eosinophils 1 % (0-10); Hypochromia SLIGHT = 6-15 cells (100X) (0-5/hpf); Lymphocytes 59 % (21-51); MDiff Complete? YES; Monocytes 3 % (0-10); Neutrophil 30 % (42-75); Platelet Morphology Comment Appears Adequate; Polychromasia SLIGHT = 2-3 cells (100X) (0-2/hpf); Reactive Lymphocytes 7 % (0-10); Target Cells SLIGHT = 2-5 cells (100X) (0-1/hpf)
[2020-09-20] MEDS ORDERED: Metoprolol Tartrate 50 MG TAB ONE (12:44)
[2020-09-20] MEDS ORDERED: Amlodipine 5 MG TAB ONE (12:44)
[2020-09-20] MEDS ORDERED: Albuterol 200 PUFF (6.7GM INHALER) ONE (13:02)
[2020-09-20 14:20] LABS: Bilirubin Negative (Negative); Blood, Urine Negative (Negative); Clarity Turbid (Clear); Glucose, Urine (Dipstick) Normal (Negative); Ketone, Urine Negative (Negative); Leukocyte Negative Leu/uL (Negative); Nitrite Negative (Negative); Protein, Urine (Dipstick) 20 mg/dL (Neg-Trace); Specific Gravity, Urine 1.026 (1.002-1.036); Urobilinogen Normal mg/dL (Less than 2); pH, Urine 5.5 (5.0-9.0)
[2020-09-20 14:22] LABS: Pregnancy Test - Urine (BHCG) Negative (Negative)
[2020-09-20 14:23] LABS: Pregu Control Bar Appear? YES (CONTROL BAR); Specific Gravity 1.023 (1.002-1.036)
[2020-09-20 14:24] LABS: Pregu Control Background? CLEAR/WHITE (CLR/WHITE)
[2020-09-20 14:32] LABS: Amphetamine Not Detected (NotDetected); Barbiturates Screen Not Detected (NotDetected); Benzodiazepine Screen Not Detected (NotDetected); Cocaine Metabolite Screen Detected (NotDetected); Medtox Control Line Valid? VALID (VALID); Medtox Reader # READER 4; Methadone Not Detected (NotDetected); Methamphetamine Not Detected (NotDetected); Opiate Screen Not Detected (NotDetected); Oxycodone Screen Not Detected (NotDetected); Phencyclidine (PCP) Not Detected (NotDetected); THC/Cannabinoid Screen Detected (NotDetected); Tricyclic Screen Not Detected (NotDetected)
[2020-09-20] MEDS ORDERED: Doxycycline 100 MG CAP PO SCH (16:30)
[2020-09-20] MEDS ORDERED: Spironolactone 25 MG TAB PO SCH (16:30)
[2020-09-20] MEDS ORDERED: traZODone HCl 50 MG TAB PO PRN (21:23)
[2020-09-20] MEDS ORDERED: traZODone HCl 50 MG TAB ONE (22:44)
[2020-09-21] MEDS ORDERED: Doxycycline 100 MG CAP PO SCH (00:30)
[2020-09-21] MEDS ORDERED: Spironolactone 25 MG TAB PO SCH ×2 (00:30→08:00)
[2020-09-21] MEDS ORDERED: OLANZapine 5 MG TAB PO SCH (02:00)
[2020-09-21] MEDS ORDERED: Metoprolol Tartrate 50 MG TAB ONE (09:51)
[2020-09-21] MEDS ORDERED: DULoxetine 60 MG CAP PO SCH (21:00)
--- NOTE | 2020-09-24 15:54 | EKG ---
Test Reason : HTN Blood Pressure : / mmHG Vent. Rate : 075 BPM Atrial Rate : 075 BPM P-R Int : 146 ms QRS Dur : 080 ms QT Int : 428 ms P-R-T Axes : 063 -16 042 degrees QTc Int : 477 ms Normal sinus rhythm Possible Left atrial enlargement Left ventricular hypertrophy Abnormal ECG Confirmed by CORNELIA POND ([id number]), advertising editor ESHA FAULKNER ([id number]) on 09/24/2020 3:53:36 PM Referred By: EMMANUEL Confirmed By:CORNELIA POND
== END 2020-09-21 17:22 | disposition home or self-care (01) ==
LOC: ERS 11:02
DX: R45.851 Suicidal ideations (principal); J44.1 Chronic obstructive pulmonary disease with (acute) exacerbation; I11.0 Hypertensive heart disease with heart failure; Z76.0 Encounter for issue of repeat prescription; K21.9 Gastro-esophageal reflux disease without esophagitis; I50.9 Heart failure, unspecified; G47.30 Sleep apnea, unspecified; F17.210 Nicotine dependence, cigarettes, uncomplicated; Z79.51 Long term (current) use of inhaled steroids; Z79.899 Other long term (current) drug therapy
CPT/HCPCS: 36415; 80053; 80306; 80307; 81003; 81025; 84484; 85025; 93005; 94664; 96374; J1100

== ENCOUNTER 2021-01-11 22:14 | Emergency (ER) | payer MEDICARE, MEDICAID ==
[2021-01-11] MEDS ORDERED: cloNIDine 0.1 MG TAB ONE (22:40)
[2021-01-11] MEDS ORDERED: Ketorolac Tromethamine 30 MG/ML VIAL ONE (22:52)
[2021-01-11 23:00] LABS: #Basophils 0.1 thou/uL (0.0-0.2); #Eosinphils 0.1 thou/uL (0.0-0.7); #Lymphocytes 3.9 thou/uL (1.20-3.40); #Monocytes 0.7 thou/uL (0.11-0.59); %Basophils 0.6 % (0.0-1.0); %Eosinophils 1.2 % (0.0-10.0); %Lymphocytes 39.7 % (21.0-51.0); %Monocytes 7.1 % (0.0-10.0); %Neutrophils 51.4 % (42.0-75.0); Mean Corpuscular HGB CONC 34.5 g/dL (32.0-36.0); Mean Corpuscular Hemoglobin 30.9 pg (27.0-31.0); Mean Corpuscular Volume 89.6 fL (78.0-98.0); Mean Platelet Volume 7.3 fL (7.4-10.4); Platelet Count 386 thou/uL (130-400); RBC Distribution Width 18.3 % (11.5-14.5); Red Blood Cell (RBC) Count 4.21 mill/uL (4.20-5.40); White Blood Cell (WBC) Count 9.7 thou/uL (4.8-10.8)
[2021-01-11 23:18] LABS: Bilirubin Small (Negative); Blood, Urine Negative (Negative); Glucose, Urine (Dipstick) Negative (Negative); Ketone, Urine Trace mg/dL (Negative); Leukocyte Negative (Negative); Nitrite Negative (Negative); Protein, Urine (Dipstick) Trace mg/dL (Neg-Trace); Specific Gravity, Urine 1.025 (1.005-1.030); Urobilinogen 0.2 mg/dL (Less than 2)
[2021-01-11 23:20] LABS: ALT (SGPT) 8 U/L (8-55); AST (SGOT) 14 U/L (5-34); Albumin 4.1 g/dL (3.5-5.0); Alkaline Phosphatase 69 U/L (40-110); Anion Gap 13 mmol/L (10-20); BUN (Urea Nitrogen) 8 mg/dL (7.0-18.7); Bilirubin, Total 0.3 mg/dL (0.2-1.2); CK (CPK) 176 U/L (29-168); Calc. Creatinine Clearance 0 mL/min (70-130); Calcium 9.1 mg/dL (7.8-10.44); Carbon Dioxide 22 mmol/L (22-29); Chloride 109 mmol/L (98-107); Globulin 3.3 g/dL (2.4-3.5); Glucose 119 mg/dL (70-105); Potassium 3.5 mmol/L (3.5-5.1); Protein, Total 7.4 g/dL (6.0-8.3); Sodium 140 mmol/L (136-145)
[2021-01-11 23:21] LABS: Acetaminophen Less than 6.0 mcg/mL (10.0-30.0); Alcohol Less than 10 mg/dL (Less than 10); Salicylate Less than 8.0 mg/dL (15.0-30.0)
[2021-01-11 23:23] LABS: Clarity Clear (Clear)
[2021-01-11 23:34] LABS: Pregnancy Test - Urine (BHCG) Negative (Negative); Pregu Control Background? CLEAR/WHITE (CLR/WHITE); Pregu Control Bar Appear? YES (CONTROL BAR)
[2021-01-11 23:35] LABS: Specific Gravity 1.025 (1.002-1.036)
[2021-01-11 23:37] LABS: Medtox Reader # READER 4; Phencyclidine (PCP) Not Detected (NotDetected); THC/Cannabinoid Screen Detected (NotDetected)
[2021-01-11 23:38] LABS: Amphetamine Not Detected (NotDetected); Barbiturates Screen Not Detected (NotDetected); Benzodiazepine Screen Not Detected (NotDetected); Cocaine Metabolite Screen Detected (NotDetected); Medtox Control Line Valid? VALID (VALID); Methadone Not Detected (NotDetected); Methamphetamine Not Detected (NotDetected); Opiate Screen Not Detected (NotDetected); Oxycodone Screen Not Detected (NotDetected); Tricyclic Screen Detected (NotDetected)
[2021-01-11] MEDS ORDERED: hydrOXYzine 25 MG TAB ONE (23:42)
== END 2021-01-12 12:53 ==
LOC: ERS 22:14
DX: R45.851 Suicidal ideations (principal); R11.10 Vomiting, unspecified; I10 Essential (primary) hypertension; K02.9 Dental caries, unspecified; K21.9 Gastro-esophageal reflux disease without esophagitis; G47.30 Sleep apnea, unspecified; J45.909 Unspecified asthma, uncomplicated; F17.210 Nicotine dependence, cigarettes, uncomplicated; Z79.899 Other long term (current) drug therapy
CPT/HCPCS: 36415; 80053; 80306; 80307; 81003; 81025; 82550; 84443; 84484; 85025; 93005; 96372; J1885

== ENCOUNTER 2021-02-08 19:11 | Emergency (ER) | payer MEDICARE, MEDICAID ==
[2021-02-08 19:44] LABS: #Basophils 0.1 thou/uL (0.0-0.2); #Eosinphils 0.2 thou/uL (0.0-0.7); #Monocytes 0.7 thou/uL (0.11-0.59); #Neutrophils 3.2 thou/uL (1.40-6.50); %Basophils 1.3 % (0.0-1.0); %Eosinophils 2.4 % (0.0-10.0); %Lymphocytes 48.6 % (21.0-51.0); %Monocytes 8.2 % (0.0-10.0); %Neutrophils 39.6 % (42.0-75.0); Mean Corpuscular Hemoglobin 30.3 pg (27.0-31.0); Mean Corpuscular Volume 91.7 fL (78.0-98.0); Mean Platelet Volume 7.5 fL (7.4-10.4); Platelet Count 362 thou/uL (130-400); RBC Distribution Width 16.8 % (11.5-14.5); Red Blood Cell (RBC) Count 3.95 mill/uL (4.20-5.40); White Blood Cell (WBC) Count 8.2 thou/uL (4.8-10.8)
[2021-02-08 19:58] LABS: Acetaminophen Less than 6.0 mcg/mL (10.0-30.0); Alcohol Less than 10 mg/dL (Less than 10); CK (CPK) 171 U/L (29-168); Salicylate Less than 8.0 mg/dL (15.0-30.0)
[2021-02-08 20:01] LABS: ALT (SGPT) 8 U/L (8-55); AST (SGOT) 11 U/L (5-34); Albumin 3.8 g/dL (3.5-5.0); Alkaline Phosphatase 76 U/L (40-110); Anion Gap 14 mmol/L (10-20); BUN (Urea Nitrogen) 12 mg/dL (7.0-18.7); Bilirubin, Total 0.2 mg/dL (0.2-1.2); Calc. Creatinine Clearance 0 mL/min (70-130); Calcium 9.1 mg/dL (7.8-10.44); Carbon Dioxide 22 mmol/L (22-29); Chloride 108 mmol/L (98-107); Glucose 120 mg/dL (70-105); Potassium 3.9 mmol/L (3.5-5.1); Protein, Total 6.8 g/dL (6.0-8.3); Sodium 140 mmol/L (136-145)
[2021-02-08 20:19] LABS: Pregnancy Test - Urine (BHCG) Negative (Negative); Pregu Control Background? CLEAR/WHITE (CLR/WHITE); Pregu Control Bar Appear? YES (CONTROL BAR); Specific Gravity 1.016 (1.002-1.036)
[2021-02-08 20:29] LABS: Amphetamine Not Detected (NotDetected); Benzodiazepine Screen Not Detected (NotDetected); Cocaine Metabolite Screen Detected (NotDetected); Medtox Reader # READER 4; Methadone Not Detected (NotDetected); Methamphetamine Not Detected (NotDetected); Opiate Screen Not Detected (NotDetected); Phencyclidine (PCP) Not Detected (NotDetected); THC/Cannabinoid Screen Detected (NotDetected); Tricyclic Screen Not Detected (NotDetected)
[2021-02-08 20:30] LABS: Barbiturates Screen Not Detected (NotDetected); Medtox Control Line Valid? VALID (VALID); Oxycodone Screen Not Detected (NotDetected)
[2021-02-08] MEDS ORDERED: Acetaminophen 500 MG TAB ONE (22:09)
== END 2021-02-09 09:04 | disposition home or self-care (01) ==
LOC: ERS 19:11
DX: F43.20 Adjustment disorder, unspecified (principal); F19.10 Other psychoactive substance abuse, uncomplicated; K21.9 Gastro-esophageal reflux disease without esophagitis; I11.0 Hypertensive heart disease with heart failure; I50.9 Heart failure, unspecified; J45.909 Unspecified asthma, uncomplicated; F17.210 Nicotine dependence, cigarettes, uncomplicated
CPT/HCPCS: 36415; 71045; 80053; 80306; 80307; 81025; 82550; 83880; 84443; 84484; 85025; 93005

== ENCOUNTER 2021-09-02 18:47 | Inpatient (IN) | payer MEDICARE ==
[~2021-09-02 18:47] MED LIST: Iopamidol 370 76% 100 ML VIAL ONE
[2021-09-02 19:53] LABS: Hemoglobin 13.2 g/dL (12.0-16.0); Mean Corpuscular HGB CONC 33.6 g/dL (32.0-36.0); Mean Corpuscular Hemoglobin 29.3 pg (27.0-31.0); Mean Corpuscular Volume 87.2 fL (78.0-98.0); Mean Platelet Volume 7.4 fL (7.4-10.4); Platelet Count 336 thou/uL (130-400); RBC Distribution Width 16.8 % (11.5-14.5); Red Blood Cell (RBC) Count 4.51 mill/uL (4.20-5.40); White Blood Cell (WBC) Count 31.5 thou/uL (4.8-10.8)
[2021-09-02] MEDS ORDERED: Midazolam HCl 2 mg/2 ml Vial ONE (20:03)
[2021-09-02 20:10] LABS: ALT (SGPT) Less than 7 U/L (8-55); AST (SGOT) 15 U/L (5-34); Albumin 3.9 g/dL (3.5-5.0); Alkaline Phosphatase 58 U/L (40-110); Anion Gap 13 mmol/L (10-20); BUN (Urea Nitrogen) 14 mg/dL (7.0-18.7); Bilirubin, Total 0.7 mg/dL (0.2-1.2); Calc. Creatinine Clearance 0 mL/min (70-130); Calcium 9.2 mg/dL (7.8-10.44); Carbon Dioxide 22 mmol/L (22-29); Globulin 3.6 g/dL (2.4-3.5); Glucose 123 mg/dL (70-105); Magnesium 1.8 mg/dL (1.6-2.6); Potassium 4.1 mmol/L (3.5-5.1); Protein, Total 7.5 g/dL (6.0-8.3)
[2021-09-02 20:13] LABS: Chloride 105 mmol/L (98-107); Sodium 136 mmol/L (136-145)
[2021-09-02 20:18] LABS: BHCG - Serum Negative (NEGATIVE); Pregs Control Background? CLEAR/WHITE (CLR/WHITE); Pregs Control Bar Appear? YES (CONTROL BAR)
[2021-09-02 20:20] LABS: Band 9 % (5-11); Lymphocytes 4 % (21-51); MDiff Complete? YES; Monocytes 3 % (0-10); Neutrophil 84 % (42-75)
[2021-09-02 20:57] LABS: SARS-CoV-2 NAA Rapid Test Not Detected (NotDetected)
[2021-09-02] MEDS ORDERED: cefTRIAXone\\ROCEPHIN 2 GM VIAL ONE (21:46)
[2021-09-02] MEDS ORDERED: traZODone HCl 50 MG TAB ONE (22:00)
[2021-09-02 22:14] LABS: Bilirubin Negative (Negative); Blood, Urine Negative (Negative); Clarity Clear (Clear); Glucose, Urine (Dipstick) Normal (Negative); Ketone, Urine Negative (Negative); Leukocyte Negative Leu/uL (Negative); Nitrite Negative (Negative); Protein, Urine (Dipstick) 10 mg/dL (Neg-Trace); Specific Gravity, Urine 1.029 (1.002-1.036); Urobilinogen Normal mg/dL (Less than 2); pH, Urine 6.5 (5.0-9.0)
[2021-09-02 23:04] LABS: Amphetamine Not Detected (NotDetected); Barbiturates Screen Not Detected (NotDetected); Benzodiazepine Screen Not Detected (NotDetected); Cocaine Metabolite Screen Detected (NotDetected); Methadone Not Detected (NotDetected); Methamphetamine Not Detected (NotDetected); Opiate Screen Not Detected (NotDetected); Oxycodone Screen Not Detected (NotDetected); Phencyclidine (PCP) Not Detected (NotDetected); THC/Cannabinoid Screen Detected (NotDetected); Tricyclic Screen Detected (NotDetected)
[2021-09-02 23:19] LABS: Troponin I 0.015 ng/mL (< 0.028)
[2021-09-02] MEDS ORDERED: Azithromycin 500 MG VIAL ONE ×2 (23:22→23:28)
[2021-09-02] MEDS ORDERED: Guaifenesin DM 100-10/5 ML UDCUP PO PRN (23:29)
[2021-09-02] MEDS ORDERED: Acetaminophen 325 MG TAB PO PRN (23:29)
[2021-09-02 23:35] LABS: Lactic Acid 2.2 mmol/L (0.5-2.2)
[2021-09-02 23:36] VITALS: BMI 27.1
[2021-09-02] MEDS ORDERED: Ibuprofen 200 MG TAB ONE (23:40)
[2021-09-02] MEDS ORDERED: Acetaminophen 500 MG TAB ONE (23:40)
[2021-09-02] MEDS ORDERED: hydrOXYzine 25 MG TAB PO PRN (23:54)
[2021-09-03] MEDS ORDERED: Albuterol 200 PUFF (6.7GM INHALER) INH PRN (00:01)
[2021-09-03] MEDS ORDERED: Acetaminophen 500 MG TAB PO SCH (00:15)
[2021-09-03] MEDS ORDERED: Hydrochlorothiazide 25 MG TAB PO SCH (00:15)
[2021-09-03] MEDS ORDERED: Amlodipine 10 MG TAB PO SCH (00:15)
[2021-09-03] MEDS ORDERED: Mag-Al 1200 mg/1200 mg/30 ML UDCUP ONE (00:53)
[2021-09-03] MEDS ORDERED: Lidocaine Viscous Sol 2% 15 ml UD Cup ONE (00:53)
[2021-09-03 02:24] LABS: Troponin I 0.018 ng/mL (< 0.028)
[2021-09-03] MEDS: Nicotine 21 MG PATCH TD SCH ×2 (02:41→20:55)
[2021-09-03] MEDS ORDERED: FLU VACC QS2021-22(6MOS UP)/PF 60 MCG/0.5 ML SYRINGE IM ONE (05:45)
[2021-09-03 06:03] LABS: #Basophils 0.1 thou/uL (0.0-0.2); #Eosinphils 0.1 thou/uL (0.0-0.7); #Lymphocytes 3.2 thou/uL (1.20-3.40); #Neutrophils 13.3 thou/uL (1.40-6.50); %Basophils 0.5 % (0.0-1.0); %Eosinophils 0.5 % (0.0-10.0); %Lymphocytes 18.3 % (21.0-51.0); %Monocytes 5.6 % (0.0-10.0); %Neutrophils 75.2 % (42.0-75.0); Hemoglobin 11.6 g/dL (12.0-16.0); Mean Corpuscular HGB CONC 32.9 g/dL (32.0-36.0); Mean Corpuscular Hemoglobin 29.3 pg (27.0-31.0); Mean Platelet Volume 7.5 fL (7.4-10.4); Platelet Count 300 thou/uL (130-400); RBC Distribution Width 16.9 % (11.5-14.5); Red Blood Cell (RBC) Count 3.94 mill/uL (4.20-5.40); White Blood Cell (WBC) Count 17.6 thou/uL (4.8-10.8)
[2021-09-03 06:07] LABS: Anion Gap 13 mmol/L (10-20); BUN (Urea Nitrogen) 12 mg/dL (7.0-18.7); Calc. Creatinine Clearance 106 mL/min (70-130); Calcium 8.6 mg/dL (7.8-10.44); Carbon Dioxide 21 mmol/L (22-29); Chloride 106 mmol/L (98-107); Glucose 124 mg/dL (70-105); Potassium 3.6 mmol/L (3.5-5.1); Sodium 136 mmol/L (136-145)
[2021-09-03] MEDS: Amlodipine 10 MG TAB PO SCH (09:55)
[2021-09-03] MEDS: Hydrochlorothiazide 25 MG TAB PO SCH (09:56)
[2021-09-03] MEDS: Enoxaparin Sodium 40 MG/0.4 ML SYRINGE SC SCH (09:57)
[2021-09-03 15:13] LABS: SARS-CoV-2 PCR by NAA Not Detected (NotDetected)
[2021-09-03] MEDS ORDERED: traZODone HCl 50 MG TAB PO SCH (21:00)
[2021-09-03] MEDS ORDERED: Melatonin 3 MG TAB PO PRN (21:13)
[2021-09-03] MEDS ORDERED: hydrOXYzine 25 MG TAB PO SCH (21:15)
[2021-09-04 06:38] LABS: Anion Gap 13 mmol/L (10-20); BUN (Urea Nitrogen) 11 mg/dL (7.0-18.7); Calc. Creatinine Clearance 108 mL/min (70-130); Calcium 9.1 mg/dL (7.8-10.44); Carbon Dioxide 21 mmol/L (22-29); Chloride 104 mmol/L (98-107); Glucose 114 mg/dL (70-105); Potassium 4.4 mmol/L (3.5-5.1); Sodium 134 mmol/L (136-145)
[2021-09-04 06:48] LABS: Mean Corpuscular HGB CONC 32.3 g/dL (32.0-36.0); Mean Corpuscular Hemoglobin 29.3 pg (27.0-31.0); Mean Corpuscular Volume 90.6 fL (78.0-98.0); Mean Platelet Volume 9.1 fL (7.4-10.4); Platelet Count 273 thou/uL (130-400); RBC Distribution Width 17.2 % (11.5-14.5); Red Blood Cell (RBC) Count 4.45 mill/uL (4.20-5.40); White Blood Cell (WBC) Count 9.9 thou/uL (4.8-10.8)
[2021-09-04 08:22] VITALS: BP 172/94; TEMP 98.8
[2021-09-04] MEDS ORDERED: DULoxetine 60 MG CAP PO SCH (09:00)
[2021-09-04] MEDS ORDERED: Azithromycin 250 MG TAB PO SCH (09:00)
[2021-09-04] MEDS: Enoxaparin Sodium 40 MG/0.4 ML SYRINGE SC SCH (09:03)
[2021-09-04] MEDS: Hydrochlorothiazide 25 MG TAB PO SCH (09:03)
[2021-09-04] MEDS: Amlodipine 10 MG TAB PO SCH (09:05)
[2021-09-04 10:17] LABS: Band 2 % (5-11); Lymphocytes 30 % (21-51); Monocytes 13 % (0-10); Neutrophil 54 % (42-75); Platelet Morphology Comment Appears Adequate; Polychromasia SLIGHT = 2-3 cells (100X) (0-2/hpf)
[2021-09-04 10:18] LABS: MDiff Complete? YES
== END 2021-09-04 11:10 | disposition home or self-care (01) | DRG 871 ==
LOC: ERS 18:47 → ERHOLD 21:41 → NEURO 09-03 02:16
PROVIDERS: ADMIT Family Medicine; ATTEND Family Medicine
DX: A41.9 Sepsis, unspecified organism (principal); J96.01 Acute respiratory failure with hypoxia; J18.9 Pneumonia, unspecified organism; Z20.822 Contact with and (suspected) exposure to COVID-19; J45.909 Unspecified asthma, uncomplicated; K21.9 Gastro-esophageal reflux disease without esophagitis; I73.9 Peripheral vascular disease, unspecified; F17.210 Nicotine dependence, cigarettes, uncomplicated; F41.9 Anxiety disorder, unspecified; F20.9 Schizophrenia, unspecified; F19.10 Other psychoactive substance abuse, uncomplicated; I50.9 Heart failure, unspecified; I11.0 Hypertensive heart disease with heart failure; F31.9 Bipolar disorder, unspecified; F43.10 Post-traumatic stress disorder, unspecified; Z88.8 Allergy status to other drugs, medicaments and biological substances; Z79.899 Other long term (current) drug therapy; Z98.51 Tubal ligation status
CPT/HCPCS: 0240U; 36415; 71045; 71275; 80048; 80053; 80306; 81003; 83605; 83735; 83880; 84145; 84484; 84703; 85025; 85379; 87040; 87086; 93005; J0456; J0696; J1650; J2250; Q9967; U0003; U0005

== ENCOUNTER 2021-11-09 07:15 | Observation (INO) | payer MEDICARE, MEDICAID ==
[2021-11-09] MEDS ORDERED: Ondansetron PF 4 MG/2 ML Vial ONE ×2 (07:37→09:39)
[2021-11-09] MEDS ORDERED: Lorazepam 2 MG/ML VIAL ONE (07:37)
[2021-11-09 07:54] LABS: BHCG - Serum Negative (NEGATIVE); Pregs Control Background? CLEAR/WHITE (CLR/WHITE); Pregs Control Bar Appear? YES (CONTROL BAR)
[2021-11-09 07:59] LABS: Hemoglobin 13.8 g/dL (12.0-16.0); Mean Corpuscular HGB CONC 33.7 g/dL (32.0-36.0); Mean Corpuscular Hemoglobin 30.3 pg (27.0-31.0); Mean Corpuscular Volume 89.8 fL (78.0-98.0); Mean Platelet Volume 7.1 fL (7.4-10.4); Platelet Count 450 thou/uL (130-400); RBC Distribution Width 17.9 % (11.5-14.5); Red Blood Cell (RBC) Count 4.57 mill/uL (4.20-5.40); White Blood Cell (WBC) Count 31.4 thou/uL (4.8-10.8)
[2021-11-09 08:05] LABS: ALT (SGPT) 10 U/L (8-55); AST (SGOT) 19 U/L (5-34); Albumin 4.5 g/dL (3.5-5.0); Alkaline Phosphatase 64 U/L (40-110); Anion Gap 14 mmol/L (10-20); BUN (Urea Nitrogen) 11 mg/dL (7.0-18.7); Calc. Creatinine Clearance 0 mL/min (70-130); Calcium 9.4 mg/dL (7.8-10.44); Carbon Dioxide 23 mmol/L (22-29); Chloride 103 mmol/L (98-107); Glucose 124 mg/dL (70-105); Lipase 8 U/L (8-78); Potassium 3.6 mmol/L (3.5-5.1); Protein, Total 8.5 g/dL (6.0-8.3); Sodium 136 mmol/L (136-145)
[2021-11-09 08:37] LABS: Band 9 % (5-11); Lymphocytes 11 % (21-51); MDiff Complete? YES; Monocytes 4 % (0-10); Neutrophil 76 % (42-75); Platelet Morphology Comment Appears Increased; RBC Morphology Normal
[2021-11-09] MEDS ORDERED: Morphine 4 MG/ML VIAL ONE (09:39)
[2021-11-09 10:13] LABS: Bacteria/HPF None Seen HPF (None Seen); Bilirubin Negative (Negative); Blood, Urine 3+ (Negative); Clarity Clear (Clear); Glucose, Urine (Dipstick) Normal (Negative); Ketone, Urine Negative (Negative); Leukocyte Negative Leu/uL (Negative); Nitrite Negative (Negative); Protein, Urine (Dipstick) Negative (Neg-Trace); RBC/HPF 0-3 HPF (0-3); Specific Gravity, Urine 1.045 (1.002-1.036); Squamous Epithelial 0-3 HPF (0-3); Urobilinogen Normal mg/dL (Less than 2); WBC/HPF 0-3 HPF (0-3)
[2021-11-09 10:18] LABS: Amphetamine Not Detected (NotDetected); Barbiturates Screen Not Detected (NotDetected); Benzodiazepine Screen Not Detected (NotDetected); Cocaine Metabolite Screen Detected (NotDetected); Methadone Not Detected (NotDetected); Methamphetamine Not Detected (NotDetected); Opiate Screen Not Detected (NotDetected); Oxycodone Screen Not Detected (NotDetected); Phencyclidine (PCP) Not Detected (NotDetected); THC/Cannabinoid Screen Detected (NotDetected); Tricyclic Screen Not Detected (NotDetected)
[2021-11-09 10:49] LABS: SARS-CoV-2 NAA Rapid Test Not Detected (NotDetected)
[2021-11-09] MEDS ORDERED: cefTRIAXone\\ROCEPHIN 1 GM VIAL ONE (12:21)
[2021-11-09 13:19] LABS: Lactic Acid 3.1 mmol/L (0.5-2.2)
[2021-11-09] MEDS ORDERED: Acetaminophen 325 MG TAB PO PRN (13:30)
[2021-11-09] MEDS ORDERED: Ondansetron PF 4 MG/2 ML Vial IVP PRN (13:30)
[2021-11-09] MEDS ORDERED: Ondansetron ODT 4 MG TAB SL PRN (13:30)
[2021-11-09 13:32] VITALS: BMI 33.1
[2021-11-09] MEDS ORDERED: Doxycycline 100 MG CAP PO SCH ×2 (14:45→21:00)
[2021-11-09] MEDS ORDERED: hydrOXYzine 25 MG TAB PO PRN (14:51)
[2021-11-09] MEDS ORDERED: Lorazepam 1 MG TAB PO PRN (14:52)
[2021-11-09] MEDS ORDERED: Diazepam 5 MG TAB PO PRN (15:18)
[2021-11-09] MEDS ORDERED: Haloperidol 5 MG TAB PO SCH (15:45)
[2021-11-09] MEDS ORDERED: Amlodipine 10 MG TAB PO SCH (17:30)
[2021-11-09] MEDS ORDERED: Hydrochlorothiazide 25 MG TAB PO SCH (17:30)
[2021-11-09] MEDS ORDERED: hydrALAZINE 20 MG/ML VIAL SLOW IVP PRN (17:31)
[2021-11-09] MEDS: Haloperidol 5 MG TAB PO SCH (20:53)
[2021-11-09] MEDS ORDERED: traZODone HCl 50 MG TAB PO SCH (21:00)
[2021-11-10 06:24] LABS: ALT (SGPT) 7 U/L (8-55); AST (SGOT) 17 U/L (5-34); Albumin 3.7 g/dL (3.5-5.0); Alkaline Phosphatase 52 U/L (40-110); Anion Gap 15 mmol/L (10-20); BUN (Urea Nitrogen) 10 mg/dL (7.0-18.7); Bilirubin, Total 0.3 mg/dL (0.2-1.2); Calc. Creatinine Clearance 136 mL/min (70-130); Calcium 8.7 mg/dL (7.8-10.44); Carbon Dioxide 21 mmol/L (22-29); Chloride 104 mmol/L (98-107); Globulin 3.2 g/dL (2.4-3.5); Glucose 104 mg/dL (70-105); Potassium 3.6 mmol/L (3.5-5.1); Protein, Total 6.9 g/dL (6.0-8.3); Sodium 136 mmol/L (136-145)
[2021-11-10 06:37] LABS: Hemoglobin 11.8 g/dL (12.0-16.0); Mean Corpuscular HGB CONC 33.8 g/dL (32.0-36.0); Mean Corpuscular Hemoglobin 30.9 pg (27.0-31.0); Mean Corpuscular Volume 91.3 fL (78.0-98.0); Mean Platelet Volume 7.2 fL (7.4-10.4); Platelet Count 373 thou/uL (130-400); RBC Distribution Width 18.3 % (11.5-14.5); Red Blood Cell (RBC) Count 3.83 mill/uL (4.20-5.40); White Blood Cell (WBC) Count 10.9 thou/uL (4.8-10.8)
[2021-11-10 06:58] LABS: Band 1 % (5-11); Eosinophils 2 % (0-10); Lymphocytes 42 % (21-51); MDiff Complete? YES; Monocytes 5 % (0-10); Neutrophil 50 % (42-75)
[2021-11-10] MEDS: Lactated Ringer's 1,000 ML IV SCH ×2 (08:36→15:23)
[2021-11-10] MEDS: Haloperidol 5 MG TAB PO SCH (08:40)
[2021-11-10] MEDS ORDERED: Amlodipine 10 MG TAB PO SCH ×2 (09:00→21:00)
[2021-11-10] MEDS ORDERED: DULoxetine 60 MG CAP PO SCH (09:00)
[2021-11-10] MEDS ORDERED: Hydrochlorothiazide 25 MG TAB PO SCH ×2 (09:00→21:00)
[2021-11-10 10:00] VITALS: TEMP 98
[2021-11-10 10:04] LABS: HIV (1/2) Antibody/Antigen Non-Reactive (NonReactive); HIV 1/2 INDEX 0.12 S/CO (<1.00)
[2021-11-10] MEDS ORDERED: PROPOFOL 200 MG/20 ML VIAL ONE (10:38)
[2021-11-10] MEDS ORDERED: Lidocaine 1% PF 5 ML VIAL ONE (10:38)
[2021-11-10 11:24] VITALS: BP 165/89
== END 2021-11-10 17:35 | disposition home or self-care (01) ==
LOC: ERS 07:15 → INTOOBSV 11:36 → T4-B 11:36
PROVIDERS: ADMIT Hospitalist; ATTEND Hospitalist
PROC: 0DJ08ZZ Inspection of Upper Intestinal Tract, Via Natural or Artificial Opening Endoscopic (ICD-10-PCS; principal; 2021-11-10)
DX: T40.5X1A Poisoning by cocaine, accidental (unintentional), initial encounter (principal); J68.0 Bronchitis and pneumonitis due to chemicals, gases, fumes and vapors; K92.0 Hematemesis; R10.13 Epigastric pain; F14.129 Cocaine abuse with intoxication, unspecified; F14.13 Cocaine abuse, unspecified with withdrawal; F12.13 Cannabis abuse with withdrawal; F31.9 Bipolar disorder, unspecified; F41.9 Anxiety disorder, unspecified; F20.9 Schizophrenia, unspecified; R45.850 Homicidal ideations; K21.9 Gastro-esophageal reflux disease without esophagitis; I11.0 Hypertensive heart disease with heart failure; I50.23 Acute on chronic systolic (congestive) heart failure; I73.9 Peripheral vascular disease, unspecified; G25.81 Restless legs syndrome; F10.11 Alcohol abuse, in remission; Z87.11 Personal history of peptic ulcer disease; Z79.899 Other long term (current) drug therapy; Z88.8 Allergy status to other drugs, medicaments and biological substances; Z20.822 Contact with and (suspected) exposure to COVID-19
CPT/HCPCS: 0240U; 43235; 71046; 71260; 74177; 80053 ×2; 80306; 83605; 83690; 83880; 84145 ×2; 84484; 84703; 85025 ×2; 87040; 87086; 87389; 93005; 36415; 81003; 81015; 96374; 96375; 96376; J0696; J2060; J2270; J2405; J2704; J7120

== ENCOUNTER 2022-06-30 07:40 | Emergency (ER) | payer MEDICARE, MEDICAID ==
[2022-06-30 08:31] LABS: #Basophils 0.1 thou/uL (0.0-0.2); #Eosinphils 0.1 thou/uL (0.0-0.7); #Monocytes 0.6 thou/uL (0.11-0.59); #Neutrophils 3.5 thou/uL (1.40-6.50); %Basophils 0.9 % (0.0-1.0); %Eosinophils 1.4 % (0.0-10.0); %Lymphocytes 41.7 % (21.0-51.0); %Neutrophils 48.1 % (42.0-75.0); Hemoglobin 13.4 g/dL (12.0-16.0); Mean Corpuscular HGB CONC 33.2 g/dL (32.0-36.0); Mean Corpuscular Hemoglobin 30.9 pg (27.0-31.0); Mean Corpuscular Volume 92.9 fl (78.0-98.0); Mean Platelet Volume 7.4 fL (7.4-10.4); Platelet Count 327 10x3/uL (130-400); RBC Distribution Width 15.3 % (11.5-14.5); Red Blood Cell (RBC) Count 4.34 mill/uL (4.20-5.40); White Blood Cell (WBC) Count 7.2 10x3/uL (4.8-10.8)
[2022-06-30 08:50] LABS: ALT (SGPT) 11 U/L (8-55); AST (SGOT) 13 U/L (5-34); Alkaline Phosphatase 74 U/L (40-110); Anion Gap 12 mmol/L (10-20); BUN (Urea Nitrogen) 13 mg/dL (7.0-18.7); Bilirubin, Total 0.3 mg/dL (0.2-1.2); Calc. Creatinine Clearance 0 mL/min (70-130); Calcium 8.4 mg/dL (7.8-10.44); Carbon Dioxide 24 mmol/L (22-29); Chloride 107 mmol/L (98-107); Estimated GFR 92; Globulin 2.9 g/dL (2.4-3.5); Glucose 101 mg/dL (70-105); Lipase 282 U/L (8-78); Protein, Total 6.9 g/dL (6.0-8.3); Sodium 139 mmol/L (136-145)
[2022-06-30] MEDS ORDERED: Ketorolac Tromethamine 30 MG/ML VIAL ONE ×2 (10:19→10:31)
[2022-06-30] MEDS ORDERED: Dexamethasone 10 MG/ML VIAL ONE (10:19)
[2022-06-30] MEDS ORDERED: FENTANYL 50 MCG/ML 1 ML VIAL ONE (10:19)
[2022-06-30] MEDS ORDERED: Iopamidol-370 76% 500 ML 1 ML ONE (10:48)
== END 2022-06-30 10:40 | disposition home or self-care (01) ==
LOC: ERS 07:40
DX: M54.12 Radiculopathy, cervical region (principal); I10 Essential (primary) hypertension; F17.210 Nicotine dependence, cigarettes, uncomplicated
CPT/HCPCS: 36415; 71045; 71275; 80053; 82550; 83690; 84484; 85025; 85379; 93005; 96372; J1100; J1885; J3010; Q9967

== ENCOUNTER 2023-04-16 07:40 | Inpatient (IN) | payer MEDICARE, MEDICAID ==
[2023-04-16] MEDS ORDERED: Labetalol HCl 100 MG/20 ML VIAL ONE (08:42)
[2023-04-16] MEDS ORDERED: Morphine 4 MG/ML VIAL ONE (08:42)
[2023-04-16] MEDS ORDERED: Ondansetron PF 4 MG/2 ML Vial ONE (08:42)
[2023-04-16 08:57] LABS: #Eosinphils 0.1 thou/uL (0.0-0.7); #Monocytes 0.7 thou/uL (0.11-0.59); #Neutrophils 5.1 thou/uL (1.40-6.50); %Basophils 0.5 % (0.0-1.0); %Eosinophils 0.9 % (0.0-10.0); %Lymphocytes 31.4 % (21.0-51.0); %Neutrophils 59.1 % (42.0-75.0); Hematocrit 36.7 % (36.0-47.0); Hemoglobin 12.5 g/dL (12.0-16.0); Mean Corpuscular HGB CONC 34.1 g/dL (32.0-36.0); Mean Corpuscular Hemoglobin 30.6 pg (27.0-31.0); Mean Platelet Volume 9.5 fL (7.4-10.4); Platelet Count 279 10x3/uL (130-400); Red Blood Cell (RBC) Count 4.08 mill/uL (4.20-5.40); White Blood Cell (WBC) Count 8.7 10x3/uL (4.8-10.8)
[2023-04-16 09:28] LABS: ALT (SGPT) 10 U/L (8-55); AST (SGOT) 16 U/L (5-34); Albumin 3.6 g/dL (3.5-5.0); Alkaline Phosphatase 95 U/L (40-110); Anion Gap 12 mmol/L (10-20); BUN (Urea Nitrogen) 11 mg/dL (9.8-20.1); Bilirubin, Total Less than 0.2 mg/dL (0.2-1.2); Calc. Creatinine Clearance 0 mL/min (70-130); Calcium 8.4 mg/dL (7.8-10.44); Carbon Dioxide 23 mmol/L (22-29); Chloride 105 mmol/L (98-107); Estimated GFR 85; Glucose 97 mg/dL (70-105); Potassium 3.3 mmol/L (3.5-5.1); Protein, Total 6.6 g/dL (6.0-8.3); Sodium 137 mmol/L (136-145)
[2023-04-16 09:32] LABS: Troponin I 0.022 ng/mL (< 0.028)
[2023-04-16] MEDS ORDERED: cefTRIAXone (ROCEPHIN) 1 GM VIAL ONE (10:38)
[2023-04-16] MEDS ORDERED: Acetaminophen 325 MG TAB PO PRN (10:51)
[2023-04-16] MEDS ORDERED: Azithromycin 500 MG VIAL ONE (11:28)
[2023-04-16] MEDS ORDERED: Potassium Chloride 20 MEQ TAB PO SCH (11:30)
[2023-04-16] MEDS ORDERED: Amlodipine 10 MG TAB PO SCH (11:30)
[2023-04-16 11:47] LABS: Troponin I 0.013 ng/mL (< 0.028)
[2023-04-16] MEDS ORDERED: Hydrochlorothiazide 25 MG TAB PO SCH (12:00)
[2023-04-16 12:13] VITALS: BMI 23.1
[2023-04-16] MEDS: Azithromycin 500 MG in Sodium Chloride 0.9% 250 ML 250 ML IVPB SCH (14:08)
[2023-04-16] MEDS ORDERED: Potassium Chloride 20 MEQ TAB ONE (14:09)
[2023-04-16] MEDS ORDERED: Ondansetron ODT 4 MG TAB PO PRN (14:50)
[2023-04-16] MEDS: hydrALAZINE 20 MG/ML VIAL SLOW IVP PRN (16:30)
[2023-04-16 17:33] LABS: Troponin I 0.012 ng/mL (< 0.028)
[2023-04-16] MEDS: Famotidine 20 MG TAB PO SCH (21:53)
[2023-04-16] MEDS: Metoprolol Tartrate 25 MG TAB PO SCH (21:53)
[2023-04-16] MEDS ORDERED: traZODone HCl 50 MG TAB PO SCH (23:45)
[2023-04-17] MEDS: hydrALAZINE 20 MG/ML VIAL SLOW IVP PRN ×3 (00:22→21:22)
[2023-04-17] MEDS: QUEtiapine 300 MG TAB PO SCH ×2 (00:30→21:22)
[2023-04-17 04:48] LABS: #Eosinphils 0.1 thou/uL (0.0-0.7); #Monocytes 0.5 thou/uL (0.11-0.59); #Neutrophils 2.9 thou/uL (1.40-6.50); %Basophils 0.5 % (0.0-1.0); %Eosinophils 1.5 % (0.0-10.0); %Lymphocytes 46.9 % (21.0-51.0); %Monocytes 7.4 % (0.0-10.0); %Neutrophils 43.5 % (42.0-75.0); Hematocrit 40.6 % (36.0-47.0); Mean Corpuscular HGB CONC 34.5 g/dL (32.0-36.0); Mean Corpuscular Hemoglobin 30.9 pg (27.0-31.0); Mean Corpuscular Volume 89.6 fl (78.0-98.0); Mean Platelet Volume 9.7 fL (7.4-10.4); Platelet Count 308 10x3/uL (130-400); RBC Distribution Width 15.4 % (11.5-14.5); Red Blood Cell (RBC) Count 4.53 mill/uL (4.20-5.40); White Blood Cell (WBC) Count 6.7 10x3/uL (4.8-10.8)
[2023-04-17 05:13] LABS: Anion Gap 10 mmol/L (10-20); BUN (Urea Nitrogen) 13 mg/dL (9.8-20.1); Calc. Creatinine Clearance 76 mL/min (70-130); Calcium 9.4 mg/dL (7.8-10.44); Carbon Dioxide 27 mmol/L (22-29); Chloride 104 mmol/L (98-107); Estimated GFR 83; Glucose 96 mg/dL (70-105); Potassium 4.1 mmol/L (3.5-5.1); Sodium 137 mmol/L (136-145)
[2023-04-17] MEDS: Famotidine 20 MG TAB PO SCH ×2 (08:19→21:22)
[2023-04-17] MEDS ORDERED: Labetalol HCl 100 MG/20 ML VIAL SLOW IVP PRN (09:46)
[2023-04-17] MEDS ORDERED: cefTRIAXone\\ROCEPHIN 1 GM in Sodium Chloride 0.9% 100 ML IVPB SCH (11:00)
[2023-04-17] MEDS: Azithromycin 500 MG in Sodium Chloride 0.9% 250 ML 250 ML IVPB SCH (12:22)
[2023-04-17] MEDS: Amlodipine 10 MG TAB PO SCH (12:24)
[2023-04-17] MEDS: Hydrochlorothiazide 25 MG TAB PO SCH (12:25)
[2023-04-17] MEDS: Metoprolol Tartrate 25 MG TAB PO SCH ×2 (12:25→21:22)
[2023-04-17] MEDS ORDERED: traZODone HCl 50 MG TAB PO PRN (20:07)
[2023-04-18] MEDS: Famotidine 20 MG TAB PO SCH (08:45)
[2023-04-18] MEDS: Metoprolol Tartrate 25 MG TAB PO SCH (08:45)
[2023-04-18] MEDS: Amlodipine 10 MG TAB PO SCH (08:45)
[2023-04-18] MEDS: Hydrochlorothiazide 25 MG TAB PO SCH (08:45)
[2023-04-18] MEDS ORDERED: QUEtiapine 200 MG TAB PO SCH (09:00)
[2023-04-18 11:14] VITALS: BP 111/74; TEMP 97.3
[2023-04-18] MEDS ORDERED: Cefdinir 300 MG CAP PO SCH (21:00)
[2023-04-19] MEDS ORDERED: Azithromycin 250 MG TAB PO SCH (09:00)
== END 2023-04-18 14:35 | disposition home or self-care (01) | DRG 194 ==
LOC: ERS 07:40 → ERHOLD 10:53 → 2NO 15:46
PROVIDERS: ADMIT Internal Medicine; ATTEND Emergency Medicine
DX: J18.9 Pneumonia, unspecified organism (principal); I16.1 Hypertensive emergency; I16.0 Hypertensive urgency; F41.9 Anxiety disorder, unspecified; I73.9 Peripheral vascular disease, unspecified; E87.6 Hypokalemia; K21.9 Gastro-esophageal reflux disease without esophagitis; F14.10 Cocaine abuse, uncomplicated; I25.10 Atherosclerotic heart disease of native coronary artery without angina pectoris; Z88.8 Allergy status to other drugs, medicaments and biological substances; Z79.899 Other long term (current) drug therapy; Z98.51 Tubal ligation status; Z83.3 Family history of diabetes mellitus; Z71.6 Tobacco abuse counseling; Z95.5 Presence of coronary angioplasty implant and graft; F17.210 Nicotine dependence, cigarettes, uncomplicated; F20.9 Schizophrenia, unspecified; Z71.51 Drug abuse counseling and surveillance of drug abuser; I11.0 Hypertensive heart disease with heart failure; I50.9 Heart failure, unspecified; G25.81 Restless legs syndrome; J45.909 Unspecified asthma, uncomplicated; G47.30 Sleep apnea, unspecified; F43.10 Post-traumatic stress disorder, unspecified; F12.10 Cannabis abuse, uncomplicated
CPT/HCPCS: 36415; 71045; 71046; 78451; 80048; 80053; 83735; 83880; 84443; 84484; 85025; 87040; 87149; 93005; 94760; 96365; 96367; 96375; A9500; J0360; J0456; J0696; J1650; J2270; J2405; J3490; J7050

== ENCOUNTER 2023-05-12 03:51 | Emergency (ER) | payer MEDICARE, MEDICAID ==
[2023-05-12 04:31] LABS: #Eosinphils 0.1 thou/uL (0.0-0.7); #Monocytes 0.6 thou/uL (0.11-0.59); %Basophils 0.5 % (0.0-1.0); %Eosinophils 1.5 % (0.0-10.0); %Lymphocytes 33.4 % (21.0-51.0); %Monocytes 6.8 % (0.0-10.0); %Neutrophils 57.6 % (42.0-75.0); Hematocrit 36.3 % (36.0-47.0); Hemoglobin 12.7 g/dL (12.0-16.0); Mean Corpuscular Hemoglobin 31.7 pg (27.0-31.0); Mean Corpuscular Volume 90.5 fl (78.0-98.0); Mean Platelet Volume 9.5 fL (7.4-10.4); Platelet Count 264 10x3/uL (130-400); RBC Distribution Width 15.3 % (11.5-14.5); Red Blood Cell (RBC) Count 4.01 mill/uL (4.20-5.40); White Blood Cell (WBC) Count 8.7 10x3/uL (4.8-10.8)
[2023-05-12 04:59] LABS: Troponin I Less than 0.010 ng/mL (< 0.028)
[2023-05-12 05:09] LABS: ALT (SGPT) 9 U/L (8-55); AST (SGOT) 12 U/L (5-34); Albumin 3.7 g/dL (3.5-5.0); Alkaline Phosphatase 68 U/L (40-110); BUN (Urea Nitrogen) 13 mg/dL (9.8-20.1); Bilirubin, Total 0.2 mg/dL (0.2-1.2); Calc. Creatinine Clearance 0 mL/min (70-130); Calcium 8.8 mg/dL (7.8-10.44); Carbon Dioxide 22 mmol/L (22-29); Chloride 104 mmol/L (98-107); Estimated GFR 84; Globulin 2.7 g/dL (2.4-3.5); Glucose 123 mg/dL (70-105); Lipase 39 U/L (8-78); Potassium 3.3 mmol/L (3.5-5.1); Protein, Total 6.4 g/dL (6.0-8.3); Sodium 135 mmol/L (136-145)
[2023-05-12 06:17] LABS: Anion Gap 12 mmol/L (10-20)
== END 2023-05-12 06:50 | disposition home or self-care (01) ==
LOC: ERS 03:51
DX: J18.9 Pneumonia, unspecified organism (principal); K21.9 Gastro-esophageal reflux disease without esophagitis; I11.0 Hypertensive heart disease with heart failure; I50.9 Heart failure, unspecified; F17.210 Nicotine dependence, cigarettes, uncomplicated
CPT/HCPCS: 36415; 71045; 80053; 83690; 84484; 85025; 93005

== ENCOUNTER 2023-05-12 14:13 | Emergency (ER) | payer MEDICARE, MEDICAID ==
[~2023-05-12 14:13] MED LIST changes: -Iopamidol 370 76% 100 ML VIAL ONE; +Iopamidol-370 76% 500 ML MDV (1 ML CHARGE) ONE
[2023-05-12 14:50] LABS: #Eosinphils 0.2 thou/uL (0.0-0.7); #Monocytes 0.4 thou/uL (0.11-0.59); #Neutrophils 2.8 thou/uL (1.40-6.50); %Basophils 0.6 % (0.0-1.0); %Eosinophils 2.6 % (0.0-10.0); %Lymphocytes 49.9 % (21.0-51.0); %Monocytes 6.1 % (0.0-10.0); %Neutrophils 40.7 % (42.0-75.0); Hematocrit 41.1 % (36.0-47.0); Hemoglobin 14.1 g/dL (12.0-16.0); Mean Corpuscular HGB CONC 34.3 g/dL (32.0-36.0); Mean Corpuscular Hemoglobin 31.2 pg (27.0-31.0); Mean Corpuscular Volume 90.9 fl (78.0-98.0); Mean Platelet Volume 9.6 fL (7.4-10.4); Platelet Count 278 10x3/uL (130-400); RBC Distribution Width 15.6 % (11.5-14.5); Red Blood Cell (RBC) Count 4.52 mill/uL (4.20-5.40); White Blood Cell (WBC) Count 6.9 10x3/uL (4.8-10.8)
[2023-05-12 15:19] LABS: ALT (SGPT) 10 U/L (8-55); AST (SGOT) 13 U/L (5-34); Alkaline Phosphatase 67 U/L (40-110); Anion Gap 14 mmol/L (10-20); BUN (Urea Nitrogen) 11 mg/dL (9.8-20.1); Bilirubin, Total 0.3 mg/dL (0.2-1.2); Calc. Creatinine Clearance 0 mL/min (70-130); Calcium 9.2 mg/dL (7.8-10.44); Carbon Dioxide 23 mmol/L (22-29); Chloride 105 mmol/L (98-107); Estimated GFR 74; Globulin 2.9 g/dL (2.4-3.5); Glucose 128 mg/dL (70-105); Lipase 37 U/L (8-78); Potassium 3.7 mmol/L (3.5-5.1); Protein, Total 6.9 g/dL (6.0-8.3); Sodium 138 mmol/L (136-145)
[2023-05-12 17:32] LABS: Acetaminophen Less than 10 mcg/mL (10.0-30.0); Alcohol Less than 10.0 mg/dL (Less than 10); Salicylate Less than 8.0 mg/dL (15.0-30.0)
[2023-05-12 18:05] LABS: Amphetamine Not Detected (NotDetected); Barbiturates Screen Not Detected (NotDetected); Benzodiazepine Screen Not Detected (NotDetected); Cocaine Metabolite Screen Detected (NotDetected); Methadone Not Detected (NotDetected); Methamphetamine Not Detected (NotDetected); Opiate Screen Not Detected (NotDetected); Oxycodone Screen Not Detected (NotDetected); Phencyclidine (PCP) Not Detected (NotDetected); THC/Cannabinoid Screen Detected (NotDetected); Tricyclic Screen Detected (NotDetected)
[2023-05-12] MEDS ORDERED: Nitroglycerin 2% Ointment 1 INCH/1 GM Packet ONE (18:08)
[2023-05-12] MEDS ORDERED: dilTIAZem 125 MG/25 ML SDV ONE (18:08)
== END 2023-05-12 21:10 | disposition home or self-care (01) ==
LOC: ERS 14:13
DX: R07.89 Other chest pain (principal); F14.10 Cocaine abuse, uncomplicated; I16.0 Hypertensive urgency; I11.0 Hypertensive heart disease with heart failure; I50.9 Heart failure, unspecified; G47.30 Sleep apnea, unspecified; F17.210 Nicotine dependence, cigarettes, uncomplicated; Z79.899 Other long term (current) drug therapy
CPT/HCPCS: 36415; 71045; 71275; 74174; 80053; 80306; 80307; 82550; 83690; 84484; 85025; 93005; 96374; Q9967

== ENCOUNTER 2024-07-31 05:06 | Inpatient (IN) | payer MEDICARE, OTHER ==
[2024-07-31 06:19] LABS: Actual Bicarbonate (HCO3v) 24.5 mEq/L (22-28); Analyzer IN Cardio ER; Base Excess 0.2 mEq/L (-2.0 to +3.0); Calcium, Ionized (venous) 1.12 mmol/L (1.16-1.32); Chloride (VBG) 104 mmol/L (98-106); Hematocrit-VBG 43 % (36.0-47.0); Hemoglobin (Hb) 14.7 g/dL (11.7-16.0); Potassium (VBG) 3.79 mmol/L (3.70-5.30); Sodium 138 mmol/L (133-146); pH (venous) 7.419 (7.32-7.43)
[2024-07-31 06:24] LABS: #Basophils 0.07 10x3/uL (0.0-0.2); %Basophils 0.5 % (0.0-1.0); %Eosinophils 0.4 % (0.0-10.0); %Lymphocytes 30.2 % (21.0-51.0); %Neutrophils 61.5 % (42.0-75.0); Hematocrit 39.8 % (36.0-47.0); Hemoglobin 13.7 g/dL (12.0-16.0); Mean Corpuscular HGB CONC 34.4 g/dL (32.0-36.0); Mean Corpuscular Hemoglobin 29.3 pg (27.0-31.0); Mean Platelet Volume 9.7 fL (7.4-10.4); Platelet Count 288 10x3/uL (130-400); RBC Distribution Width 16.4 % (11.5-14.5); Red Blood Cell (RBC) Count 4.68 mill/uL (4.20-5.40)
[2024-07-31 06:36] LABS: Amphetamine Not Detected (NotDetected); Barbiturates Screen Not Detected (NotDetected); Benzodiazepine Screen Not Detected (NotDetected); Cocaine Metabolite Screen Detected (NotDetected); Methadone Not Detected (NotDetected); Methamphetamine Not Detected (NotDetected); Opiate Screen Not Detected (NotDetected); Oxycodone Screen Not Detected (NotDetected); Phencyclidine (PCP) Not Detected (NotDetected); THC/Cannabinoid Screen Detected (NotDetected); Tricyclic Screen Detected (NotDetected)
[2024-07-31 06:39] LABS: Troponin I 0.044 ng/mL (< 0.028)
[2024-07-31] MEDS ORDERED: hydrALAZINE 20 MG/ML VIAL ONE (06:43)
[2024-07-31] MEDS ORDERED: Nitroglycerin 2% Ointment 1 INCH/1 GM Packet ONE ×2 (06:43→09:35)
[2024-07-31] MEDS ORDERED: Lorazepam 2 MG/ML VIAL ONE (06:44)
[2024-07-31] MEDS ORDERED: Aspirin Chewable 81 MG TAB ONE (06:44)
[2024-07-31 06:51] LABS: ALT (SGPT) 14 U/L (8-55); AST (SGOT) 16 U/L (5-34); Albumin 3.9 g/dL (3.5-5.0); Alkaline Phosphatase 78 U/L (40-110); Anion Gap 16 mmol/L (10-20); BUN (Urea Nitrogen) 11 mg/dL (9.8-20.1); Bilirubin, Total 0.5 mg/dL (0.2-1.2); Calc. Creatinine Clearance 0 mL/min (70-130); Calcium 9.2 mg/dL (7.8-10.44); Carbon Dioxide 19 mmol/L (22-29); Chloride 104 mmol/L (98-107); Estimated GFR 102; Globulin 4.3 g/dL (2.4-3.5); Glucose 109 mg/dL (70-105); Potassium 3.9 mmol/L (3.5-5.1); Protein, Total 8.2 g/dL (6.0-8.3); Sodium 135 mmol/L (136-145)
[2024-07-31] MEDS ORDERED: Amlodipine 5 MG TAB ONE (07:59)
[2024-07-31] MEDS ORDERED: Acetaminophen 500 MG TAB ONE ×2 (07:59→08:01)
[2024-07-31] MEDS ORDERED: Furosemide 40 MG (4 mL) VIAL ONE (08:00)
[2024-07-31] MEDS ORDERED: Acetaminophen 325 MG TAB PO PRN ×2 (08:15→14:17)
[2024-07-31] MEDS ORDERED: Ondansetron ODT 4 MG TAB SL PRN (08:15)
[2024-07-31] MEDS ORDERED: Ondansetron PF 4 MG/2 ML Vial IVP PRN ×2 (08:15→14:17)
[2024-07-31] MEDS ORDERED: hydrALAZINE 20 MG/ML VIAL SLOW IVP PRN (08:25)
[2024-07-31 09:26] LABS: Troponin I 0.048 ng/mL (< 0.028)
[2024-07-31] MEDS: Amlodipine 10 MG TAB PO SCH (12:11)
[2024-07-31] MEDS ORDERED: Pantoprazole DR 40 MG TAB ONE (12:13)
[2024-07-31 12:30] LABS: Troponin I 0.047 ng/mL (< 0.028)
[2024-07-31] MEDS: Pantoprazole DR 40 MG TAB PO SCH (12:47)
[2024-07-31] MEDS: Hydrochlorothiazide 25 MG TAB PO SCH (12:47)
[2024-07-31] MEDS ORDERED: Bisacodyl 5 MG TAB PO PRN (14:17)
[2024-07-31 14:26] VITALS: BMI 26.2
[2024-07-31] MEDS: hydrALAZINE 25 MG TAB PO SCH (14:50)
[2024-07-31] MEDS: Enoxaparin 40 MG (0.4 mL) SYRINGE SC SCH (15:34)
[2024-07-31] MEDS: Nicotine 21 MG PATCH TD SCH (15:34)
[2024-07-31] MEDS: traMADol HCl 50 MG TAB PO PRN (15:45)
[2024-07-31] MEDS: QUEtiapine 200 MG TAB PO SCH (20:39)
[2024-08-01 05:24] LABS: #Basophils 0.04 10x3/uL (0.0-0.2); %Basophils 0.4 % (0.0-1.0); %Eosinophils 0.6 % (0.0-10.0); %Lymphocytes 32.1 % (21.0-51.0); %Monocytes 6.2 % (0.0-10.0); %Neutrophils 60.1 % (42.0-75.0); Hematocrit 39.3 % (36.0-47.0); Hemoglobin 13.7 g/dL (12.0-16.0); Mean Corpuscular HGB CONC 34.9 g/dL (32.0-36.0); Mean Corpuscular Hemoglobin 29.6 pg (27.0-31.0); Mean Corpuscular Volume 84.9 fL (78.0-98.0); Mean Platelet Volume 9.9 fL (7.4-10.4); Platelet Count 377 10x3/uL (130-400); RBC Distribution Width 16.3 % (11.5-14.5); Red Blood Cell (RBC) Count 4.63 mill/uL (4.20-5.40)
[2024-08-01 05:55] LABS: Anion Gap 15 mmol/L (10-20); BUN (Urea Nitrogen) 24 mg/dL (9.8-20.1); Calc. Creatinine Clearance 80 mL/min (70-130); Carbon Dioxide 20 mmol/L (22-29); Chloride 103 mmol/L (98-107); Estimated GFR 74; Glucose 126 mg/dL (70-105); Sodium 134 mmol/L (136-145)
[2024-08-01] MEDS: Enoxaparin 40 MG (0.4 mL) SYRINGE SC SCH (08:54)
[2024-08-01] MEDS: hydrALAZINE 25 MG TAB PO SCH (09:18)
[2024-08-01] MEDS ORDERED: Albuterol 200 PUFF (6.7GM INHALER) INH PRN (09:22)
[2024-08-01] MEDS: Ipratropium/Albuterol 3 ML NEB NEB PRN (10:49)
[2024-08-02] MEDS: traMADol HCl 50 MG TAB PO PRN (08:30)
[2024-08-02] MEDS: hydrALAZINE 25 MG TAB PO SCH (09:28)
[2024-08-02 11:50] VITALS: BP 147/81; TEMP 98.2
== END 2024-08-02 15:20 | disposition home or self-care (01) | DRG 918 ==
LOC: ERS 05:06 → PCU 08:21 → ERHOLD 08:21 → PCU 14:05 → OBSVTOIN 08-02 09:01
PROVIDERS: ADMIT Internal Medicine; ATTEND Family Medicine
DX: T40.5X1A Poisoning by cocaine, accidental (unintentional), initial encounter (principal); I16.0 Hypertensive urgency; I25.10 Atherosclerotic heart disease of native coronary artery without angina pectoris; J45.909 Unspecified asthma, uncomplicated; F14.10 Cocaine abuse, uncomplicated; F12.10 Cannabis abuse, uncomplicated; F31.9 Bipolar disorder, unspecified; K21.9 Gastro-esophageal reflux disease without esophagitis; I11.0 Hypertensive heart disease with heart failure; I50.9 Heart failure, unspecified; T46.5X6A Underdosing of other antihypertensive drugs, initial encounter; Z91.148 Patient's other noncompliance with medication regimen for other reason
CPT/HCPCS: 36415; 71045; 80048; 80053; 80306; 82805; 83735; 83880; 84484; 85025; 93005; 94640; 96374; 96375; J0360; J1650; J1940; J2060; J7620

== ENCOUNTER 2025-04-26 04:49 | Inpatient (IN) | payer MEDICARE, OTHER ==
[2025-04-26 07:36] LABS: BHCG - Serum Negative (NEGATIVE); Pregs Control Background? CLEAR/WHITE (CLR/WHITE); Pregs Control Bar Appear? YES (CONTROL BAR)
[2025-04-26 07:42] LABS: ALT (SGPT) 16 U/L (Less than 34); AST (SGOT) 31 U/L (11-34); Albumin 4.2 g/dL (3.1-4.5); Alkaline Phosphatase 73 U/L (40-110); Anion Gap 15 mmol/L (10-20); BUN (Urea Nitrogen) 5 mg/dL (9.8-20.1); Bilirubin, Total 0.7 mg/dL (0.3-1.2); CK (CPK) 870 U/L (29-168); Calc. Creatinine Clearance 0 mL/min (70-130); Calcium 9.2 mg/dL (7.8-10.44); Carbon Dioxide 25 mmol/L (22-29); Chloride 106 mmol/L (98-107); Globulin 3.6 g/dL (2.4-3.5); Glucose 119 mg/dL (70-105); Potassium 3.1 mmol/L (3.5-5.1); Sodium 143 mmol/L (136-145)
[2025-04-26 07:49] LABS: Acetaminophen Less than 10 mcg/mL (Less than 10); Lipase 7 U/L (8-78); Magnesium 1.9 mg/dL (1.6-2.6); Salicylate Less than 8.0 mg/dL (Less than 8.0)
[2025-04-26 07:51] LABS: #Basophils 0.04 10x3/uL (0.0-0.2); #Eosinophils 0.31 10x3/uL (0.0-0.7); #Monocytes 1.21 10x3/uL (0.11-0.59); #Neutrophils 12.99 10x3/uL (1.40-6.50); %Basophils 0.2 % (0.0-1.0); %Eosinophils 1.6 % (0.0-10.0); %Lymphocytes 22.3 % (21.0-51.0); %Monocytes 6.4 % (0.0-10.0); %Neutrophils 69.0 % (42.0-75.0); Hematocrit 39.8 % (36.0-47.0); Hemoglobin 13.3 g/dL (12.0-16.0); Mean Corpuscular Hemoglobin 29.3 pg (27.0-31.0); Mean Corpuscular Volume 87.7 fL (78.0-98.0); Platelet Count 288 10x3/uL (130-400); Red Blood Cell (RBC) Count 4.54 mill/uL (4.20-5.40); White Blood Cell (WBC) Count 18.85 10x3/uL (4.8-10.8)
[2025-04-26] MEDS ORDERED: Iopamidol-370 76% 500 ML MDV (1 ML CHARGE) ONE (10:34)
[2025-04-26] MEDS ORDERED: hydrALAZINE 20 MG/ML VIAL ONE (11:11)
[2025-04-26] MEDS ORDERED: Electrolyte Replacement Protocol 1 EACH FS SCH (13:15)
[2025-04-26] MEDS ORDERED: niCARdipine 40MG In NaCl 40 MG/200 ML BAG IVPB SCH (14:15)
[2025-04-26] MEDS ORDERED: Multivit, Therapeutic 1 TAB ONE (14:17)
[2025-04-26] MEDS ORDERED: Magnesium 2 GM/50 ML BAG (IN WATER) ONE (14:17)
[2025-04-26] MEDS: Multivit, Therapeutic 1 TAB PO SCH (14:24)
[2025-04-26] MEDS ORDERED: Folic Acid 1 MG TAB ONE (14:47)
[2025-04-26] MEDS: Magnesium 2 GM/50 ML(in water) 2 GM in Premix 1 BAG IVPB SCH (14:50)
[2025-04-26] MEDS ORDERED: dilTIAZem 25 MG/5 ML VIAL ONE (15:11)
[2025-04-26] MEDS ORDERED: niCARdipine 25 MG/10 ML SDV ONE (15:12)
[2025-04-26] MEDS: niCARdipine 25 MG in Sodium Chloride 0.9% 250 ML 250 ML IVPB SCH (15:25)
[2025-04-26] MEDS ORDERED: Ondansetron PF 4 MG/2 ML Vial IVP PRN (16:13)
[2025-04-26] MEDS ORDERED: Electrolyte Replacement Protocol 1 EACH FS PRN (16:13)
[2025-04-26] MEDS ORDERED: niCARdipine 25 MG in Sodium Chloride 0.9% 250 ML 250 ML IVPB SCH (16:15)
[2025-04-26] MEDS: Folic Acid 1 MG TAB PO SCH (16:17)
[2025-04-26] MEDS: Acetaminophen 325 MG TAB PO SCH (16:47)
[2025-04-26 17:06] VITALS: BMI 27.1
[2025-04-26] MEDS: Polymyxin B Sulf/Trimethoprim 10 ML OPHTH DROPS R EYE SCH (17:19)
[2025-04-26 18:10] LABS: Cocaine Metabolite Screen PRELIM POSITIVE (Negative); THC/Cannabinoid Screen PRELIM POSITIVE (Negative); Tricyclic Screen Negative (Negative)
[2025-04-27 06:07] LABS: #Basophils 0.05 10x3/uL (0.0-0.2); #Eosinophils 0.27 10x3/uL (0.0-0.7); #Monocytes 0.80 10x3/uL (0.11-0.59); #Neutrophils 5.11 10x3/uL (1.40-6.50); %Basophils 0.5 % (0.0-1.0); %Eosinophils 2.4 % (0.0-10.0); %Lymphocytes 43.2 % (21.0-51.0); %Monocytes 7.3 % (0.0-10.0); %Neutrophils 46.2 % (42.0-75.0); Hematocrit 44.3 % (36.0-47.0); Hemoglobin 14.2 g/dL (12.0-16.0); Mean Corpuscular Hemoglobin 28.8 pg (27.0-31.0); Mean Corpuscular Volume 89.9 fL (78.0-98.0); Platelet Count 296 10x3/uL (130-400); Red Blood Cell (RBC) Count 4.93 mill/uL (4.20-5.40); White Blood Cell (WBC) Count 11.03 10x3/uL (4.8-10.8)
[2025-04-27 06:40] LABS: ALT (SGPT) 19 U/L (Less than 34); AST (SGOT) 30 U/L (11-34); Albumin 3.7 g/dL (3.1-4.5); Alkaline Phosphatase 67 U/L (40-110); Anion Gap 16 mmol/L (10-20); BUN (Urea Nitrogen) 8 mg/dL (9.8-20.1); Bilirubin, Total 0.5 mg/dL (0.3-1.2); CK (CPK) 472 U/L (29-168); Calc. Creatinine Clearance 127 mL/min (70-130); Calcium 8.9 mg/dL (7.8-10.44); Carbon Dioxide 22 mmol/L (22-29); Chloride 111 mmol/L (98-107); Globulin 3.6 g/dL (2.4-3.5); Glucose 94 mg/dL (70-105); Magnesium 2.4 mg/dL (1.6-2.6); Potassium 3.1 mmol/L (3.5-5.1); Sodium 146 mmol/L (136-145)
[2025-04-27] MEDS: Folic Acid 1 MG TAB PO SCH (09:13)
[2025-04-27] MEDS: Multivit, Therapeutic 1 TAB PO SCH (09:13)
[2025-04-27] MEDS: 1/2 NS w/Potassium 20 mEq 1,000 ML IV SCH (09:18)
[2025-04-27] MEDS: Potassium Bicarbonate/Cit Ac 20 MEQ TAB PO SCH (12:06)
[2025-04-27] MEDS: Enoxaparin 40 MG (0.4 mL) SYRINGE SC SCH (12:07)
[2025-04-28 04:59] LABS: Anion Gap 18 mmol/L (10-20); BUN (Urea Nitrogen) 9 mg/dL (9.8-20.1); CK (CPK) 421 U/L (29-168); Calc. Creatinine Clearance 115 mL/min (70-130); Calcium 8.7 mg/dL (7.8-10.44); Carbon Dioxide 21 mmol/L (22-29); Chloride 112 mmol/L (98-107); Glucose 132 mg/dL (70-105); Magnesium 2.1 mg/dL (1.6-2.6); Potassium 3.1 mmol/L (3.5-5.1); Sodium 148 mmol/L (136-145)
[2025-04-28] MEDS: Enoxaparin 40 MG (0.4 mL) SYRINGE SC SCH (08:25)
[2025-04-28 17:34] LABS: Anion Gap 16 mmol/L (10-20); BUN (Urea Nitrogen) 6 mg/dL (9.8-20.1); Calc. Creatinine Clearance 136 mL/min (70-130); Calcium 8.9 mg/dL (7.8-10.44); Carbon Dioxide 24 mmol/L (22-29); Chloride 112 mmol/L (98-107); Glucose 146 mg/dL (70-105); Potassium 3.6 mmol/L (3.5-5.1); Sodium 148 mmol/L (136-145)
[2025-04-29 07:03] LABS: #Basophils 0.03 10x3/uL (0.0-0.2); #Eosinophils 0.15 10x3/uL (0.0-0.7); #Monocytes 0.89 10x3/uL (0.11-0.59); #Neutrophils 3.91 10x3/uL (1.40-6.50); %Basophils 0.4 % (0.0-1.0); %Eosinophils 1.8 % (0.0-10.0); %Lymphocytes 41.5 % (21.0-51.0); %Monocytes 10.4 % (0.0-10.0); %Neutrophils 45.5 % (42.0-75.0); Hematocrit 39.3 % (36.0-47.0); Hemoglobin 13.0 g/dL (12.0-16.0); Mean Corpuscular Hemoglobin 29.3 pg (27.0-31.0); Mean Corpuscular Volume 88.5 fL (78.0-98.0); Platelet Count 315 10x3/uL (130-400); Red Blood Cell (RBC) Count 4.44 mill/uL (4.20-5.40); White Blood Cell (WBC) Count 8.56 10x3/uL (4.8-10.8)
[2025-04-29 07:22] LABS: Anion Gap 13 mmol/L (10-20); BUN (Urea Nitrogen) 5 mg/dL (9.8-20.1); Calc. Creatinine Clearance 146 mL/min (70-130); Calcium 9.1 mg/dL (7.8-10.44); Carbon Dioxide 26 mmol/L (22-29); Chloride 113 mmol/L (98-107); Glucose 91 mg/dL (70-105); Magnesium 2.0 mg/dL (1.6-2.6); Potassium 3.9 mmol/L (3.5-5.1); Sodium 148 mmol/L (136-145)
[2025-04-29] MEDS: Thiamine 100 MG TAB PO SCH (08:28)
[2025-04-29] MEDS: Pantoprazole 40 MG DR.TAB PO SCH (08:28)
[2025-04-29] MEDS: Losartan 25 MG TAB PO SCH (08:36)
[2025-04-29] MEDS: Senokot S 8.6-50 MG TAB PO PRN (19:33)
[2025-04-29] MEDS: Melatonin 3 MG TAB PO PRN (23:22)
[2025-04-30] MEDS: hydrALAZINE 20 MG/ML VIAL SLOW IVP PRN (01:46)
[2025-04-30 06:13] LABS: Anion Gap 13 mmol/L (10-20); BUN (Urea Nitrogen) 7 mg/dL (9.8-20.1); Calc. Creatinine Clearance 125 mL/min (70-130); Calcium 8.9 mg/dL (7.8-10.44); Carbon Dioxide 26 mmol/L (22-29); Chloride 110 mmol/L (98-107); Glucose 119 mg/dL (70-105); Potassium 3.7 mmol/L (3.5-5.1); Sodium 145 mmol/L (136-145)
[2025-04-30] MEDS: Losartan 25 MG TAB PO SCH ×2 (08:58→20:27)
[2025-04-30] MEDS: HYDROcodone/Acetaminophen 5/325 mg Tablet PO PRN (15:30)
[2025-04-30] MEDS: QUEtiapine 100 MG TAB PO SCH (20:27)
[2025-04-30] MEDS: Acetaminophen 325 MG TAB PO PRN (20:27)
[2025-05-01] MEDS ORDERED: hydrALAZINE 20 MG/ML VIAL SLOW IVP PRN (10:45)
[2025-05-01] MEDS: HYDROcodone/Acetaminophen 5/325 mg Tablet PO PRN (20:05)
[2025-05-03 08:09] VITALS: BP 176/100; TEMP 98.4
== END 2025-05-03 11:12 | disposition home or self-care (01) | DRG 917 ==
LOC: ERS 04:49 → ERHOLD 12:17 → INTOOBSV 15:35 → OBSVTOIN 15:35 → IMCU/EMU 16:06 → T4-B 04-28 15:35
PROVIDERS: ADMIT Family Medicine; ATTEND Student in an Organized Health Care Education/Training Program
DX: T40.5X1A Poisoning by cocaine, accidental (unintentional), initial encounter (principal); G93.41 Metabolic encephalopathy; J69.0 Pneumonitis due to inhalation of food and vomit; I16.1 Hypertensive emergency; E87.0 Hyperosmolality and hypernatremia; M62.82 Rhabdomyolysis; I16.0 Hypertensive urgency; F14.10 Cocaine abuse, uncomplicated; F12.10 Cannabis abuse, uncomplicated; E87.6 Hypokalemia; I73.9 Peripheral vascular disease, unspecified; F20.9 Schizophrenia, unspecified; H10.9 Unspecified conjunctivitis
CPT/HCPCS: 36415; 70450; 71045; 71275; 80048; 80053; 80306; 80307; 82550; 83605; 83690; 83735; 84443; 84484; 84703; 85025; 85379; 87040; 87077; 87149; 93005; 93010; 93306; 96372; 96374; 96375; G0378; J0295; J0360; J1650; J2060; J2250; J3411; J3475; J3480; J3486; J7030; J7050; Q9967